=== PATIENT | female | born 1990 | race Caucasian/White ===

== ENCOUNTER 2019-12-30 09:54 | Emergency (ER) | payer OTHER, SELFPAY ==
[2019-12-30 10:00] VITALS: BP 122/60; PULSE 93; RESP 16; TEMP 36.9; O2SAT 100
--- NOTE | 2019-12-30 10:25 | ED.ABDPAIN ---
HPI - Abdominal Pain General Chief Complaint: Nausea/Vomiting/Diarrhea Stated Complaint: vomitting/right side abdominal pain Time Seen by Provider: 12/30/19 10:25 Source: patient and RN notes reviewed Mode of arrival: ambulatory Limitations: no limitations History of Present Illness HPI narrative: 29 year old female who presents to [facility] care with complaints of nausea and vomiting, diarrhea and pain in right lower abdomen since 2o'clock this morning. Patient states that she has some pain in her right side of her abdomen rates her pain as a 3/10at present time but was up to 7/10 last night. Patient has had a tubal ligation in the past, last menses was 10 days ago lasting about 6 dates and was normal for her. Patient does have history of past UTI but has no burning or pain with urination at this time. MD elicited complaint: abdominal pain Pertinent past history: past UTI Onset (ago): hour(s) (12 hours) Pain Consistency: intermittent Location: RLQ Severity: mild Quality: aching Radiation: none Associated symptoms: nausea, vomiting and diarrhea Related Data Home Medications Medication Instructions Recorded Confirmed No Home Medications 12/30/19 12/30/19 Allergies Allergy/AdvReac Type Severity Reaction Status Date / Time No Known Allergies Allergy Verified 12/30/19 10:37 Review of Systems Review of Systems: Narrative: CONSTITUTIONAL: Denies fever, chills, or sweats. EYES: Denies visual changes, redness, or discharge. ENT: Denies rhinorrhea, congestion, sore throat, or otalgia. CARDIOVASCULAR: Denies chest pain, palpitations, or edema. RESPIRATORY: Denies cough or dyspnea. GASTROINTESTINAL: Positive right lower abdominal pain, nausea, vomiting, and diarrhea. GENITOURINARY: Denies dysuria or hematuria. SKIN: Denies rash or itching. MUSCULOSKELETAL: Denies back pain, joint pain, or myalgia. NEUROLOGIC: Denies headache, numbness, or weakness. PSYCHIATRIC: Denies anxiety or depression. All systems reviewed & are unremarkable except as noted in HPI and below PMFSH Past Medical History Medical History (Updated 12/30/19 @ 11:23 by Armida Meyers NP) Anxiety and depression GERD (gastroesophageal reflux disease) Hiatal hernia Loss of teeth due to extraction Surgical History Surgical History H/O tubal ligation Social History Social History (Updated 12/30/19 @ 11:05 by Armida Meyers NP) Years smoked: 10 Smoking status: Former smoker Tobacco type: e-cigarettes/vaping Living arrangements: with family Gender identity (if verbalized by the patient): Female Comments At time of signature, agree with nursing past medical, surgical, social history. There is no relevant family history pertinent to the presenting complaint Exam Narrative: Exam Narrative: GENERAL: Well-appearing, well-nourished, and in no acute distress. HEAD: Normocephalic, atraumatic. EYES: PERRLA and EOMI. ENT: Nares clear, no rhinorrhea or epistaxis. Mucous membranes moist.TM's normal with good light reflex, throat pink with no exudates or lesions, no tonsil enlargement NECK: Supple.no lymphadenopathy CHEST: Clear to auscultation. No respiratory distress. HEART: Regular rate and rhythm. No murmur heard. Normal peripheral pulses. ABDOMEN: Soft,tender right lower abdomen with McBurney point tenderness, nondistended, normal active bowel sounds. EXTREMITIES: Normal range of motion. No edema. SKIN: Warm, dry, no rash. NEURO: No focal deficits. Alert and oriented x3. Course Vital Signs Vital signs: Vital Signs Temperature 36.9 C 12/30/19 10:00 Pulse Rate 93 12/30/19 10:00 Respiratory Rate 16 12/30/19 10:00 Blood Pressure 122/60 12/30/19 10:00 Pulse Oximetry 100 12/30/19 10:00 Temperature 36.9 C 12/30/19 10:00 Pulse Rate 93 12/30/19 10:00 Respiratory Rate 16 12/30/19 10:00 Blood Pressure 122/60 12/30/19 10:00 Pulse Oximetry 100 12/30/19 10:00
== END 2019-12-30 11:00 | disposition short-term general hospital (02) ==
PROVIDERS: Emergency Provider Registered Nurse; PCP Nurse Practitioner Family
DX: R10.31 Right lower quadrant pain (principal); R11.2 Nausea with vomiting, unspecified; R19.7 Diarrhea, unspecified; K21.9 Gastro-esophageal reflux disease without esophagitis
CPT/HCPCS: 81003; 99212; G0463

== ENCOUNTER 2020-04-26 11:39 | Emergency (ER) | payer OTHER, SELFPAY ==
[2020-04-26 11:52] VITALS: BP 106/66; PULSE 94; RESP 18; TEMP 36.6; O2SAT 100
--- NOTE | 2020-04-26 11:59 | ED.URI ---
HPI - URI/Sore Throat General Chief Complaint: Upper Respiratory Infection Stated Complaint: Ear aches Time Seen by Provider: 04/26/20 11:59 Source: patient Mode of arrival: ambulatory Limitations: no limitations History of Present Illness HPI Narrative: Florentin White is a 29 yo female with no PMH who comes to express care for uper respiratory symptoms of sore throat, bilateral ear pain x 7 days. Patient has not taken anything for either the ear pain or the sore throat. States she was exposed by a friend 5 days ago. She will be tested for both Covid and strep Related Data Home Medications Medication Instructions Recorded Confirmed famotidine 20 mg PO DAILY 04/26/20 04/26/20 pantoprazole 40 mg PO DAILY 04/26/20 04/26/20 venlafaxine 75 mg PO DAILY 04/26/20 04/26/20 Allergies Allergy/AdvReac Type Severity Reaction Status Date / Time No Known Allergies Allergy Verified 12/30/19 10:37 Review of Systems Review of Systems: Narrative: CONSTITUTIONAL: Denies fever, chills, sweats. EYES: Denies visual changes, redness, discharge. ENT: Denies rhinorrhea, has congestion, has sore throat, otalgia. CARDIOVASCULAR: Denies chest pain, palpitations, edema. RESPIRATORY: Denies dyspnea, wheezing, cough GASTROINTESTINAL: Denies abdominal pain, nausea, vomiting, diarrhea. GENITOURINARY: Denies dysuria, hematuria, abnormal discharge SKIN: Denies rash or itching. NEUROLOGIC: Denies numbness, or focal weakness. PSYCHIATRIC: Denies anxiety or depression. [facility] Past Medical History Medical History Anxiety and depression GERD (gastroesophageal reflux disease) Hiatal hernia Loss of teeth due to extraction Surgical History Surgical History H/O tubal ligation Social History Social History (Updated 04/26/20 @ 12:10 by Lenore Mendoza CNP) Years smoked: 10 Smoking status: Current every day smoker Tobacco type: e-cigarettes/vaping Gender identity (if verbalized by the patient): Female Comments At time of signature, I agree with nursing past medical, surgical, social and family history. There is no relevant family history pertinent to the presenting complaint. Exam Narrative: Exam Narrative: GENERAL: This is a well-nourished, well-developed patient, in mild distress. HEAD: normocephalic, atraumatic. EYES: Sclera clear/white. Vision is grossly intact. EARS: External ears normal, auditory canals clear, mild erythema on right, and without drainage, TMs normal without perforation. Hearing grossly intact. NOSE: External nose normal without nasal discharge, nares without redness, has rhinorrhea. THROAT: Mucous membranes moist, posterior pharynx erythema with 1+ edema NECK: Neck supple, CARDIOVASCULAR: Regular rate and rhythm without murmurs, gallops, or rubs. RESPIRATORY: Clear to auscultation. Breath sounds equal bilaterally. No wheezes, rales, or rhonchi. GASTROINTESTINAL: Abdomen soft, SKIN: warm, intact with no suspicious lesions or rash, good texture and turgor. NEURO: awake, alert, and oriented to person, place and time. There were no obvious focal neurologic abnormalities. Steady gait EXTREMITIES: Normal range of motion. BACK: Nontender without deformity Course Course Emergency Course: Patient comes to [facility] with complaints of sore throat and ear pain x7 days has not taken any medication Strep test negative Covid test Started on prednisone and Mucinex as well as Akhil Pabon Follow-up with PCP Vital Signs Vital signs: Vital Signs Temperature 97.8 F 04/26/20 11:52 Pulse Rate 94 04/26/20 11:52 Respiratory Rate 18 04/26/20 11:52 Blood Pressure 106/66 04/26/20 11:52 Pulse Oximetry 100 04/26/20 11:52 Temperature 97.8 F 04/26/20 11:52 Pulse Rate 94 04/26/20 11:52 Respiratory Rate 18 04/26/20 11:52 Blood Pressure 106/66 04/26/20 11:52 Pulse Oximetry 10
== END 2020-04-26 12:30 | disposition home or self-care (01) ==
PROVIDERS: Emergency Provider Nurse Practitioner; PCP Nurse Practitioner Family
DX: H92.03 Otalgia, bilateral (principal); J02.9 Acute pharyngitis, unspecified; Z20.822 Contact with and (suspected) exposure to COVID-19; K21.9 Gastro-esophageal reflux disease without esophagitis; F41.9 Anxiety disorder, unspecified; F32.9 Major depressive disorder, single episode, unspecified
CPT/HCPCS: 87081; 87426; 87880; 99213; C9803; G0463

== ENCOUNTER 2020-07-11 16:26 | Emergency (ER) | payer OTHER, SELFPAY ==
[2020-07-11 16:32] VITALS: BP 123/74; PULSE 86; RESP 16; TEMP 36.4; O2SAT 100
--- NOTE | 2020-07-11 16:39 | ED.GENADULT ---
HPI - General Adult General Chief complaint: Ear Stated complaint: ear pressure Time Seen by Provider: 07/11/20 16:39 Source: patient and RN notes reviewed Mode of arrival: ambulatory Limitations: no limitations History of Present Illness HPI narrative: 29-year-old female complains of bilateral ear pressure, rhinorrhea, congestion, nausea, and intermittent headache (not the worst of her like) for 1 day. Florentin reports increasing symptoms throughout the day. Tylenol 500mg today at 11:00 without relief. Denies itching or drainage. Recently URI symptoms. No facial swelling. Nausea without vomiting and abdominal pain. Tolerating liquids well. No high fevers, sore throat, drooling, neck or throat swelling. No cough or chest congestion. No chest pain or shortness of breath. LMP 3 weeks ago. Remains active. The patient reports she have not been diagnosed with COVID-19. The patient reports she is not waiting for the results of a COVID-19 lab test. The patient reports she do not have chills, weakness, or fatigue. The patient reports she do not have any loss of taste or smell and diarrhea. Denies recent traveling. Denies concerns for COVID-19 or exposures been home with limited outdoor exposure except for essential household needs, work, and return home. At this time, patient is not suspected of having COVID-19. Some parts of this dictation were generated by voice recognition software and may contain typographical and/or grammatical inaccuracies. Related Data Allergies Allergy/AdvReac Type Severity Reaction Status Date / Time No Known Allergies Allergy Verified 07/11/20 16:39 Review of Systems Review of Systems: Narrative: CONSTITUTIONAL: Denies fever, chills, sweats. EYES: Denies visual changes, redness, discharge. ENT: Complains of rhinorrhea, congestion, bilateral ear pressure. Denies tinnitus, decrease hearing, clogged, sore throat, otalgia. CARDIOVASCULAR: Denies chest pain, palpitations, edema. RESPIRATORY: Denies dyspnea, wheezing, cough. GASTROINTESTINAL: Denies abdominal pain, vomiting, diarrhea. Complains of nausea. GENITOURINARY: Denies dysuria, hematuria, abnormal discharge. SKIN: Denies rash or itching. MUSCULOSKELETAL: Denies acute back pain, joint pain, or myalgia. NEUROLOGIC: Denies numbness or focal weakness. Complains of intermittent RICHARDS. PSYCHIATRIC: Denies anxiety or depression. All systems reviewed & are unremarkable except as noted in HPI and below. [facility] Past Medical History Medical History (Updated 07/12/20 @ 00:01 by Hannah Villanueva) Anxiety and depression GERD (gastroesophageal reflux disease) Hiatal hernia Loss of teeth due to extraction Vaginal delivery 2 males Surgical History Surgical History H/O tubal ligation Family History Family History (Updated 07/11/20 @ 17:01 by FROYLAN Lopez) Father Acute myocardial infarction Mother Asthma Grandparent Acute myocardial infarction Social History Social History (Updated 07/11/20 @ 17:02 by FROYLAN Lopez) Smoking packs per day: 1.5 Smoking cigarettes per day: 30.0 Years smoked: 12 Smoking pack-years: 18.00 Smoking status: Current every day smoker Tobacco type: cigarettes and e-cigarettes/vaping Second hand tobacco smoke exposure: Yes Additional smoking assessment comments: Stop smoking cigarettes 2 years ago and now vaping Alcohol intake: former Substance use: current Substance use type: marijuana Living arrangements: with family Occupation/Education: occupation Gender identity (if verbalized by the patient): Female Sexual Orientation (if Verbalized by the Patient): Straight or Heterosexual Comments At time of signature, agree with nurse past medical, surgical, social, and family history. There is no relevant family history pertinent to the presenting complaint. Exam Narrative: Exam Narrative:
[2020-07-11 16:42] VITALS: BP 123/74; PULSE 86; RESP 16; TEMP 36.4; O2SAT 100
[2020-07-13 19:04] LABS: SARS-CoV-2 RNA PCR Negative
== END 2020-07-11 17:12 | disposition home or self-care (01) ==
PROVIDERS: Emergency Provider Nurse Practitioner Family; PCP Nurse Practitioner Family
DX: H65.192 Other acute nonsuppurative otitis media, left ear (principal); J00 Acute nasopharyngitis [common cold]; J01.90 Acute sinusitis, unspecified; R51.9 Headache, unspecified; Z20.822 Contact with and (suspected) exposure to COVID-19; F17.200 Nicotine dependence, unspecified, uncomplicated; K21.9 Gastro-esophageal reflux disease without esophagitis
CPT/HCPCS: 99213; C9803; G0463; U0003; U0005

== ENCOUNTER 2021-02-07 17:01 | Emergency (ER) | payer OTHER, SELFPAY ==
[2021-02-07 17:11] VITALS: BP 125/61; PULSE 98; RESP 16; TEMP 37.2; O2SAT 100
--- NOTE | 2021-02-07 17:21 | ED.GENADULT ---
HPI - General Adult General Chief complaint: Abdominal Pain Stated complaint: Low Back Pain/ Right Side Pain Time Seen by Provider: 02/07/21 17:23 Source: patient and RN notes reviewed Mode of arrival: ambulatory Limitations: no limitations History of Present Illness HPI narrative: 30-year-old female presents with concern for right upper quadrant abdominal pain, left low back pain. Patient reports an 8-year history of bulimia her last purging episode was this morning. She denies fever, bodies, chills, sweats, involuntary vomiting, diarrhea. Denies any relieving or exacerbating factors to the pain. MD complaint: Back pain Related Data Home Medications Medication Instructions Recorded Confirmed No Home Medications 02/07/21 02/07/21 Allergies Allergy/AdvReac Type Severity Reaction Status Date / Time No Known Allergies Allergy Verified 02/07/21 17:26 Review of Systems Review of Systems: CONSTITUTIONAL: Denies malaise, chills, sweats, or fever. ENT: Denies rhinorrhea, congestion, sinus pain, otalgia or sore throat. CARDIOVASCULAR: Denies chest pain, palpitations, or edema. RESPIRATORY: Denies cough or dyspnea. GASTROINTESTINAL: Reports right upper quadrant abdominal pain. Denies nausea, vomiting, diarrhea, bloody, or mucous stools. GENITOURINARY: Denies dysuria or hematuria. SKIN: Denies rash or itching. MUSCULOSKELETAL: Reports left back pain. Denies myalgia. NEUROLOGIC: Denies numbness, weakness, or headache. All systems reviewed & are unremarkable except as noted in HPI and below PMFSH Past Medical History Medical History (Updated 02/07/21 @ 17:40 by Peyton Willoughby NP) Anxiety and depression GERD (gastroesophageal reflux disease) Hiatal hernia Loss of teeth due to extraction Vaginal delivery 2 males Surgical History Surgical History H/O tubal ligation Family History Family History (Updated 07/11/20 @ 17:01 by FROYLAN Lopez) Father Acute myocardial infarction Mother Asthma Grandparent Acute myocardial infarction Social History Social History (Updated 07/11/20 @ 17:02 by FROYLAN Lopez) Smoking packs per day: 1.5 Smoking cigarettes per day: 30.0 Years smoked: 12 Smoking pack-years: 18.00 Smoking status: Current every day smoker Tobacco type: cigarettes and e-cigarettes/vaping Second hand tobacco smoke exposure: Yes Additional smoking assessment comments: Stop smoking cigarettes 2 years ago and now vaping Alcohol intake: former Substance use: current Substance use type: marijuana Gender identity (if verbalized by the patient): Female Sexual Orientation (if Verbalized by the Patient): Straight or Heterosexual Comments At time of signature, agree with nursing past medical, surgical, social and family history. There is no relevant family history pertinent to the presenting complaint Exam Narrative: GENERAL: Well-appearing, well-nourished, and in no acute distress. HEAD: Normocephalic EYES: PERRLA, conjunctivae clear, and EOMI. NECK: Supple. No lymphadenopathy CHEST: Speaks in full sentences. Clear to auscultation, breath sounds equal. No respiratory distress. HEART: Regular rate and rhythm. ABDOMEN: Soft, flat, nondistended. Right upper quadrant tenderness. No guarding, rebound tenderness, or rigid. No pulsatilla masses. Bowel sounds present in all four quadrants. No organomegaly. Negative Mckenna?s sign. No periumbilical tenderness. No Supra public tenderness or distension. SKIN: Warm, dry, no rash. NEURO: Alert and oriented x3. PSYCH: Normal mood and affect Course Course Emergency Course: Patient is aware of, understands and agrees to be seen in the emergency department. Patient agrees to proceed directly to I will be here the emergency department. Portions of this record may have been created with voice recognition software Vital Signs Vital signs: Vital Signs
== END 2021-02-07 17:35 | disposition short-term general hospital (02) ==
PROVIDERS: Emergency Provider Nurse Practitioner; PCP Nurse Practitioner Family
DX: R10.11 Right upper quadrant pain (principal); M54.50 Low back pain, unspecified; F17.210 Nicotine dependence, cigarettes, uncomplicated; K21.9 Gastro-esophageal reflux disease without esophagitis
CPT/HCPCS: 81003; 99212; G0463

== ENCOUNTER 2021-02-24 11:44 | Emergency (ER) | payer OTHER, SELFPAY ==
[2021-02-24 11:54] VITALS: BP 111/63; PULSE 84; RESP 16; TEMP 37.5; O2SAT 99
--- NOTE | 2021-02-24 12:24 | ED.FEMALEGU ---
HPI - Female Genitourinary General Chief complaint: Urogenital-Female Stated complaint: Vaginal Issue Time Seen by Provider: 02/24/21 12:25 Source: patient, RN notes reviewed and old records reviewed Mode of arrival: ambulatory Limitations: no limitations History of Present Illness HPI Narrative: 30-year-old female who presents to express care with complaints of burning with urination. Patient denies any odors, urgency or frequency of urination or any flank pain, vaginal discharge or suprapubic discomfort. Patient states she feels that she possibly could have been exposed to STD, thinks her significant other has been unfaithful. Patient denies any fever chills or sweats Related Data Allergies Allergy/AdvReac Type Severity Reaction Status Date / Time No Known Allergies Allergy Verified 02/24/21 11:56 Review of Systems Review of Systems: CONSTITUTIONAL: Denies fever, chills, or sweats. EYES: Denies visual changes, redness, or discharge. ENT: Denies rhinorrhea, congestion, sore throat, or otalgia. CARDIOVASCULAR: Denies chest pain, palpitations, or edema. RESPIRATORY: Denies cough or dyspnea. GASTROINTESTINAL: Denies abdominal pain, nausea, vomiting, or diarrhea. GENITOURINARY:Positive dysuria no hematuria. SKIN: Denies rash or itching. MUSCULOSKELETAL: Denies back pain, joint pain, or myalgia. NEUROLOGIC: Denies headache, numbness, or weakness. PSYCHIATRIC: Positive history of anxiety or depression. All systems reviewed & are unremarkable except as noted in HPI and below PMFSH Past Medical History Medical History Anxiety and depression GERD (gastroesophageal reflux disease) Hiatal hernia Loss of teeth due to extraction Vaginal delivery 2 males Surgical History Surgical History H/O tubal ligation Family History Family History Father Acute myocardial infarction Mother Asthma Grandparent Acute myocardial infarction Social History Social History Smoking packs per day: 1.5 Smoking cigarettes per day: 30.0 Years smoked: 12 Smoking pack-years: 18.00 Smoking status: Current every day smoker Tobacco type: cigarettes and e-cigarettes/vaping Second hand tobacco smoke exposure: Yes Additional smoking assessment comments: Stop smoking cigarettes 2 years ago and now vaping Alcohol intake: former Substance use: current Substance use type: marijuana Gender identity (if verbalized by the patient): Female Sexual Orientation (if Verbalized by the Patient): Straight or Heterosexual Comments At time of signature, agree with nursing past medical, surgical, social and family history. There is no relevant family history pertinent to the presenting complaint Exam Narrative: GENERAL: Well-appearing, well-nourished, and in no acute distress. HEAD: Normocephalic, atraumatic. EYES: PERRLA and EOMI. ENT: Nares clear, no rhinorrhea or epistaxis. Mucous membranes moist. NECK: Supple.no lymphadenopathy CHEST: Clear to auscultation. No respiratory distress.SAO2 99% on room air HEART: Regular rate and rhythm. No murmur heard. Normal peripheral pulses. ABDOMEN: Soft, nontender, nondistended, normal active bowel sounds.no supra pubic tenderness or any Flank pain on examination. EXTREMITIES: Normal range of motion. No edema. SKIN: Warm, dry, no rash. NEURO: No focal deficits. Alert and oriented x3. Course Vital Signs Vital signs: Vital Signs Temperature 37.5 C 02/24/21 11:54 Pulse Rate 84 02/24/21 11:54 Respiratory Rate 16 02/24/21 11:54 Blood Pressure 111/63 02/24/21 11:54 Pulse Oximetry 99 02/24/21 11:54 Temperature 37.5 C 02/24/21 11:54 Pulse Rate 84 02/24/21 11:54 Respiratory Rate 16 02/24/21 11:54 Blood Pressure 111/63 02/24/21 11:54 Pulse O
[2021-02-24] MEDS: cefTRIAXone 500 MG, LIDOCAINE HCL 1% LOCAL INJ 1 ML IM (12:45)
== END 2021-02-24 13:12 | disposition home or self-care (01) ==
PROVIDERS: Emergency Provider Registered Nurse
DX: R30.0 Dysuria (principal); F17.210 Nicotine dependence, cigarettes, uncomplicated
CPT/HCPCS: 81003; 87491; 87591; 87661; 96372; 99214; G0463; J0696

== ENCOUNTER 2021-05-08 19:12 | Emergency (ER) | payer OTHER, SELFPAY ==
[2021-05-08 19:18] VITALS: BP 125/78; PULSE 69; RESP 14; TEMP 36.4; O2SAT 100
--- NOTE | 2021-05-08 19:26 | ED.URI ---
HPI - URI/Sore Throat General Chief Complaint: Upper Respiratory Infection Stated Complaint: Dizziness/Cough Time Seen by Provider: 05/08/21 19:26 History of Present Illness HPI Narrative: Patient presents with bilateral pain and pressure and dizzy certain times. Patient denies any nausea no vomiting no drainage from her ear no loss of hearing. Patient is not taking thing [id number] for her symptoms. Related Data Allergies Allergy/AdvReac Type Severity Reaction Status Date / Time No Known Allergies Allergy Verified 05/08/21 19:22 Review of Systems Review of Systems: CONSTITUTIONAL: Denies fever, chills, or sweats. EYES: Denies visual changes, redness, or discharge. ENT: Denies rhinorrhea, congestion, sore throat, or otalgia. CARDIOVASCULAR: Denies chest pain, palpitations, or edema. RESPIRATORY: Denies cough or dyspnea. GASTROINTESTINAL: Denies abdominal pain, nausea, vomiting, or diarrhea. GENITOURINARY: Denies dysuria or hematuria. SKIN: Denies rash or itching. MUSCULOSKELETAL: Denies back pain, joint pain, or myalgia. NEUROLOGIC: Denies headache, numbness, or weakness. PSYCHIATRIC: Denies anxiety or depression. [facility] Past Medical History Medical History Anxiety and depression GERD (gastroesophageal reflux disease) Hiatal hernia Loss of teeth due to extraction Vaginal delivery 2 males Surgical History Surgical History H/O tubal ligation Family History Family History Father Acute myocardial infarction Mother Asthma Grandparent Acute myocardial infarction Social History Social History Smoking packs per day: 1.5 Smoking cigarettes per day: 30.0 Years smoked: 12 Smoking pack-years: 18.00 Smoking status: Current every day smoker Tobacco type: cigarettes and e-cigarettes/vaping Second hand tobacco smoke exposure: Yes Additional smoking assessment comments: Stop smoking cigarettes 2 years ago and now vaping Alcohol intake: former Substance use: current Substance use type: marijuana Gender identity (if verbalized by the patient): Female Sexual Orientation (if Verbalized by the Patient): Straight or Heterosexual Comments At time of signature, agree with nursing past medical, surgical, social and family history. There is no relevant family history pertinent to the presenting complaint Exam Narrative: GENERAL: Well-appearing, well-nourished, and in no acute distress. HEAD: Normocephalic, atraumatic. EYES: PERRLA and EOMI. ENT: Nares clear, no rhinorrhea or epistaxis. Mucous membranes moist. Right TM bulging with moderate erythremia to canal. Left TM intact with good light reflex. NECK: Supple. CHEST: Clear to auscultation. No respiratory distress. HEART: Regular rate and rhythm. No murmur heard. Normal peripheral pulses. ABDOMEN: Soft, nontender, nondistended, normal active bowel sounds. EXTREMITIES: Normal range of motion. No edema. SKIN: Warm, dry, no rash. NEURO: No focal deficits. Alert and oriented x3. Raghav Coma Scale Eye Opening: Spontaneous 4 [place] Coma Scale Motor: Obeys Commands 6 Raghav Coma Scale Verbal: Oriented 5 [place] Coma Scale Total 15 Course Course Level of Care: Express Care Visit Vital Signs Vital signs: Vital Signs Temperature 36.4 C 05/08/21 19:18 Pulse Rate 69 05/08/21 19:18 Respiratory Rate 14 05/08/21 19:18 Blood Pressure 125/78 05/08/21 19:18 Pulse Oximetry 100 05/08/21 19:18 Temperature 36.4 C 05/08/21 19:18 Pulse Rate 69 05/08/21 19:18 Respiratory Rate 14 05/08/21 19:18 Blood Pressure 125/78 05/08/21 19:18 Pulse Oximetry 100 05/08/21 19:18 Critical dx considered and discussed with pt. Educated patient on red flag s/s and to go to ED if s/s occur. Discussed with p
[2021-05-08 19:28] VITALS: BP 125/78; PULSE 69; RESP 14; TEMP 36.4; O2SAT 100
== END 2021-05-08 19:38 | disposition home or self-care (01) ==
PROVIDERS: Emergency Provider Nurse Practitioner Family; PCP Nurse Practitioner Family
DX: H66.91 Otitis media, unspecified, right ear (principal); F17.290 Nicotine dependence, other tobacco product, uncomplicated; K21.9 Gastro-esophageal reflux disease without esophagitis
CPT/HCPCS: 99213; G0463

== ENCOUNTER 2021-06-22 13:26 | Emergency (ER) | payer OTHER, SELFPAY ==
[2021-06-22 13:42] VITALS: BP 112/62; PULSE 79; RESP 18; TEMP 37.2; O2SAT 99
--- NOTE | 2021-06-22 14:19 | ED.URI ---
HPI - URI/Sore Throat General Chief Complaint: Upper Respiratory Infection Stated Complaint: sore throat Time Seen by Provider: 06/22/21 14:20 Source: patient and RN notes reviewed Mode of arrival: ambulatory Limitations: no limitations History of Present Illness HPI Narrative: 30-year-old female presents with concern for sore throat. Reports 1 month history of feeling ill with nasal congestion and cough, has been treated for double ear infections beginning a month but lost her antibiotics. Reports she was then treated for a kidney infection for which she took all those antibiotics and some of her symptoms improved. She reports her son was diagnosed with strep throat and she began having a sore throat yesterday. She reports she has been taking Tylenol. MD elicited complaint: sore throat Related Data Home Medications Medication Instructions Recorded Confirmed No Home Medications 06/22/21 06/22/21 Allergies Allergy/AdvReac Type Severity Reaction Status Date / Time No Known Allergies Allergy Verified 06/22/21 13:51 Review of Systems Review of Systems: CONSTITUTIONAL: Denies malaise, chills, sweats, or fever. EYES: Denies visual changes, redness, or discharge. ENT: Denies rhinorrhea, congestion, sinus pain, otalgia. Report sore throat. CARDIOVASCULAR: Denies chest pain, palpitations, or edema. RESPIRATORY: Reports cough. Denies dyspnea. GASTROINTESTINAL: Denies abdominal pain, nausea, vomiting, diarrhea SKIN: Denies rash or itching. MUSCULOSKELETAL: Denies myalgia. NEUROLOGIC: Denies headache. All systems reviewed & are unremarkable except as noted in HPI and below PMFSH Past Medical History Medical History Anxiety and depression GERD (gastroesophageal reflux disease) Hiatal hernia Loss of teeth due to extraction Vaginal delivery 2 males Surgical History Surgical History H/O tubal ligation Family History Family History Father Acute myocardial infarction Mother Asthma Grandparent Acute myocardial infarction Social History Social History Smoking packs per day: 1.5 Smoking cigarettes per day: 30.0 Years smoked: 12 Smoking pack-years: 18.00 Smoking status: Current every day smoker Tobacco type: cigarettes and e-cigarettes/vaping Second hand tobacco smoke exposure: Yes Additional smoking assessment comments: Stop smoking cigarettes 2 years ago and now vaping Alcohol intake: former Substance use: current Substance use type: marijuana Gender identity (if verbalized by the patient): Female Sexual Orientation (if Verbalized by the Patient): Straight or Heterosexual Comments At time of signature, agree with nursing past medical, surgical, social and family history. There is no relevant family history pertinent to the presenting complaint Exam Narrative: GENERAL: Well-appearing, well-nourished, and in no acute distress. HEAD: Normocephalic EYES: PERRLA, conjunctivae clear ENT: Nares clear, clear discharge. Mucous membranes moist. TM pearly hamilton with sharp light reflex bilaterally; no tragal tenderness. Oropharynx not erythematous without lesions. Tonsils not enlarged and without exudate, no drooling, no hoarseness, no trismus, uvula midline. NECK: Supple. No lymphadenopathy CHEST: Clear to auscultation, breath sounds equal. No wheezing, rhonchi, rales, or stridor. No respiratory distress, speaks in full sentences. HEART: Regular rate and rhythm. No murmur heard. SKIN: Warm, dry, no rash. NEURO: Alert and oriented x3. PSYCH: Normal mood and affect Course Course Emergency Course: Patient is aware of diagnosis, understands and agrees to treatment plan. Anticipatory guidance given. Patient agrees to follow-up as directed and is aware of reasons to see
== END 2021-06-22 14:31 | disposition home or self-care (01) ==
PROVIDERS: Emergency Provider Nurse Practitioner; PCP Nurse Practitioner Family
DX: J02.9 Acute pharyngitis, unspecified (principal); F17.290 Nicotine dependence, other tobacco product, uncomplicated; K21.9 Gastro-esophageal reflux disease without esophagitis
CPT/HCPCS: 87081; 87880; 99213; G0463

== ENCOUNTER 2021-07-19 12:25 | Emergency (ER) | payer OTHER, SELFPAY ==
--- NOTE | 2021-07-19 12:27 | ED.URI ---
HPI - URI/Sore Throat General Chief Complaint: Upper Respiratory Infection Stated Complaint: sore throat Time Seen by Provider: 07/19/21 12:27 Source: patient and RN notes reviewed History of Present Illness HPI Narrative: Patient is a 30-year-old female who presents the urgent care with complaints of a sore throat for the last 3 days. Patient has not taken anything [id number] and denies any fever, chills, nausea, vomiting, headache or other upper respiratory complaints. Patient states that her boyfriend is positive for strep. No other acute complaints. No acute distress noted. Patient aware of the plan of care. Some parts of this dictation were generated by voice recognition software and may contain typographical and/or grammatical inaccuracies. Related Data Home Medications Medication Instructions Recorded Confirmed No Home Medications 06/22/21 06/22/21 Allergies Allergy/AdvReac Type Severity Reaction Status Date / Time No Known Allergies Allergy Verified 07/19/21 12:38 Review of Systems Review of Systems: CONSTITUTIONAL: Denies fever, chills, or sweats. EYES: Denies visual changes, redness, or discharge. ENT: Denies rhinorrhea, congestion, or otalgia. Reports of sore throat CARDIOVASCULAR: Denies chest pain, palpitations, or edema. RESPIRATORY: Denies cough or dyspnea. GASTROINTESTINAL: Denies abdominal pain, nausea, vomiting, or diarrhea. GENITOURINARY: Denies dysuria or hematuria. SKIN: Denies rash or itching. MUSCULOSKELETAL: Denies back pain, joint pain, or myalgia. NEUROLOGIC: Denies headache, numbness, or weakness. All other systems reviewed are negative, except as documented in HPI. [facility] Past Medical History Medical History Anxiety and depression GERD (gastroesophageal reflux disease) Hiatal hernia Loss of teeth due to extraction Vaginal delivery 2 males Surgical History Surgical History H/O tubal ligation Family History Family History Father Acute myocardial infarction Mother Asthma Grandparent Acute myocardial infarction Social History Social History Smoking packs per day: 1.5 Smoking cigarettes per day: 30.0 Years smoked: 12 Smoking pack-years: 18.00 Smoking status: Current every day smoker Tobacco type: cigarettes and e-cigarettes/vaping Second hand tobacco smoke exposure: Yes Additional smoking assessment comments: Stop smoking cigarettes 2 years ago and now vaping Alcohol intake: former Substance use: current Substance use type: marijuana Gender identity (if verbalized by the patient): Female Sexual Orientation (if Verbalized by the Patient): Straight or Heterosexual Comments At the time of my signature, I reviewed and agree with the nursing past medical, surgical, social, and family history. There is no relevant family history pertinent to the patient complaint. Exam Narrative: GENERAL: This is a well-nourished, well-developed patient, in no apparent distress. HEAD: normocephalic, atraumatic. EYES: PERRL. Sclera clear/white. Vision is grossly intact. EARS: External ears normal, auditory canals clear and without drainage, TMs normal without perforation. Hearing grossly intact. NOSE: External nose normal with no obvious nasal discharge, nares without redness, no rhinorrhea. THROAT: Mucous membranes moist, posterior pharynx clear. Notable scarring and healed ulcerations to the posterior oropharynx with mild postnasal drainage NECK: Neck supple, mild tender left submandibular lymphadenopathy CARDIOVASCULAR: Regular rate and rhythm without murmurs, gallops, or rubs. RESPIRATORY: Clear to auscultation. Breath sounds equal bilaterally. No wheezes, rales, or rhonchi. SKIN: warm, intact with no suspicious lesions or rash
[2021-07-19 12:30] VITALS: BP 105/60; PULSE 81; RESP 14; TEMP 36.8; O2SAT 100
== END 2021-07-19 13:04 | disposition home or self-care (01) ==
PROVIDERS: Emergency Provider Nurse Practitioner Family
DX: J02.9 Acute pharyngitis, unspecified (principal); F17.290 Nicotine dependence, other tobacco product, uncomplicated; K21.9 Gastro-esophageal reflux disease without esophagitis
CPT/HCPCS: 87081; 87880; 99213; G0463

== ENCOUNTER 2021-07-31 08:01 | Emergency (ER) | payer OTHER, SELFPAY ==
[2021-07-31 08:08] VITALS: BP 114/74; PULSE 78; RESP 18; TEMP 37; O2SAT 100
--- NOTE | 2021-07-31 08:34 | ED.GENADULT ---
HPI - General Adult General Chief complaint: Upper Respiratory Infection Stated complaint: sore throat congestion nausea ear pain Source: patient Mode of arrival: ambulatory Limitations: no limitations History of Present Illness HPI narrative: Patient presents for evaluation of sick symptoms. She states 6 days ago she developed body aches. She took a home COVID test which was positive. She went to [facility] emergency department for confirmation testing, which was also positive. She reports continued generalized body aches, nausea, vomiting, diarrhea, sore throat, chills, and cough.. She denies fever, chest pain, shortness of breath. The note she received from the ER provider excused her from work through of this week. She missed work yesterday as she was not feeling better. She did not receive COVID vaccination. She does use e-cigarettes and also uses marijuana. No additional complaints or concerns. Related Data Allergies Allergy/AdvReac Type Severity Reaction Status Date / Time No Known Allergies Allergy Verified 07/31/21 08:15 Review of Systems Review of Systems: CONSTITUTIONAL: Reports chills. Denies fever or sweats. EYES: Denies visual changes, redness, or discharge. ENT: Reports sore throat. Denies rhinorrhea, congestion, or otalgia. CARDIOVASCULAR: Denies chest pain, palpitations, or edema. RESPIRATORY: Reports cough. Denies dyspnea. GASTROINTESTINAL: Reports nausea, vomiting and diarrhea. Denies abdominal pain GENITOURINARY: Denies dysuria or hematuria. SKIN: Denies rash or itching. MUSCULOSKELETAL: Denies back pain, joint pain, or myalgia. NEUROLOGIC: Denies headache, numbness, dizziness, or weakness. PSYCHIATRIC: Denies anxiety or depression. [facility] Past Medical History Medical History Anxiety and depression GERD (gastroesophageal reflux disease) Hiatal hernia Loss of teeth due to extraction Vaginal delivery 2 males Surgical History Surgical History H/O tubal ligation Family History Family History Father Acute myocardial infarction Mother Asthma Grandparent Acute myocardial infarction Social History Social History Smoking packs per day: 1.5 Smoking cigarettes per day: 30.0 Years smoked: 12 Smoking pack-years: 18.00 Smoking status: Current every day smoker Tobacco type: cigarettes and e-cigarettes/vaping Second hand tobacco smoke exposure: Yes Additional smoking assessment comments: Stop smoking cigarettes 2 years ago and now vaping Alcohol intake: former Substance use: current Substance use type: marijuana Gender identity (if verbalized by the patient): Female Sexual Orientation (if Verbalized by the Patient): Straight or Heterosexual Exam Narrative: GENERAL: Well-appearing, well-nourished, and in no acute distress. HEAD: Normocephalic, atraumatic. EYES: PERRLA and EOMI. ENT: Nares clear, no rhinorrhea or epistaxis. Mucous membranes moist. Oropharynx without tonsillar hypertrophy exudate or other lesions. Bilateral TMs pearly hamilton nonbulging NECK: Supple. No adenopathy or masses. No carotid bruits or JVD CHEST: Clear to auscultation. No respiratory distress. No wheezes rales or rhonchi HEART: Regular rate and rhythm. No murmur heard. Normal peripheral pulses. ABDOMEN: Soft, nontender, nondistended, normal active bowel sounds. EXTREMITIES: Normal range of motion. No edema. SKIN: Warm, dry, no rash. NEURO: No focal deficits. Alert and oriented x3. PSYCH: Normal mood and affect. Course Course Emergency Course: This is a 30-year-old female that presented for evaluation after recent positive COVID test. She is nontoxic-appearing. We will add Zofran that she can take at home. Note provided to ok
== END 2021-07-31 08:22 | disposition home or self-care (01) ==
PROVIDERS: Emergency Provider Nurse Practitioner
DX: U07.1 COVID-19 (principal); F17.210 Nicotine dependence, cigarettes, uncomplicated
CPT/HCPCS: 99213; G0463

== ENCOUNTER 2021-11-01 13:04 | Emergency (ER) | payer OTHER, SELFPAY ==
[2021-11-01 13:06] VITALS: BP 128/69; PULSE 84; RESP 14; TEMP 36.6; O2SAT 100
--- NOTE | 2021-11-01 13:12 | ED.NAVMDI ---
HPI - Nausea/Vomiting/Diarrhea General Chief complaint: Nausea/Vomiting/Diarrhea Stated complaint: nausea diarhhrea Time Seen by Provider: 11/01/21 13:12 Source: patient, RN notes reviewed and old records reviewed Mode of arrival: ambulatory Limitations: no limitations History of Present Illness HPI Narrative: 31-year-old female who presents to [facility] care with complaints of nausea vomiting and diarrhea which started last p.m. after eating meat lovers pizza at area establishment.Patient report that she and 2 other who ate the pizza are sick with same symptoms, her children had cheese pizza and are not ill. Patient reports that she has had nausea and vomiting and diarrhea which started last night within a hour of eating. She states that she has had vomiting X2 and has had diarrhea X6 with abdominal cramping. Patient reports that she has had a few sips of water this morning. MD elicited complaint: nausea, vomiting, diarrhea and other (Abdominal cramping) Onset (ago): day(s) (approximately 7 pm yesterday) Description of diarrhea: watery Associated nausea: Yes Related Data Home Medications Medication Instructions Recorded Confirmed venlafaxine 75 mg capsule,extended 75 mg PO DAILY 11/01/21 11/01/21 release 24 hr Allergies Allergy/AdvReac Type Severity Reaction Status Date / Time No Known Allergies Allergy Verified 11/01/21 13:16 Review of Systems Review of Systems: CONSTITUTIONAL: Denies fever, chills, or sweats. EYES: Denies visual changes, redness, or discharge. ENT: Denies rhinorrhea, congestion, sore throat, or otalgia. CARDIOVASCULAR: Denies chest pain, palpitations, or edema. RESPIRATORY: Denies cough or dyspnea. GASTROINTESTINAL: Denies abdominal pain, positive for abdominal cramping,positive nausea, vomiting, and diarrhea. GENITOURINARY: Denies dysuria or hematuria. SKIN: Denies rash or itching. MUSCULOSKELETAL: Denies back pain, joint pain, or myalgia. NEUROLOGIC: Denies headache, numbness, or weakness. PSYCHIATRIC: Positive for history of anxiety or depression. All systems reviewed & are unremarkable except as noted in HPI and below PMFSH Past Medical History Medical History Anxiety and depression GERD (gastroesophageal reflux disease) Hiatal hernia Loss of teeth due to extraction Vaginal delivery 2 males Surgical History Surgical History H/O tubal ligation Family History Family History Father Acute myocardial infarction Mother Asthma Grandparent Acute myocardial infarction Social History Social History Smoking packs per day: 1.5 Smoking cigarettes per day: 30.0 Years smoked: 12 Smoking pack-years: 18.00 Smoking status: Current every day smoker Tobacco type: cigarettes and e-cigarettes/vaping Second hand tobacco smoke exposure: Yes Additional smoking assessment comments: Stop smoking cigarettes 2 years ago and now vaping Alcohol intake: former Substance use: current Substance use type: marijuana Gender identity (if verbalized by the patient): Female Sexual Orientation (if Verbalized by the Patient): Straight or Heterosexual Comments .At time of signature agree with nursing documentation of past medical, surgical, social, and family history. There is no relevant family history pertinent to presenting complaint. Exam Narrative: GENERAL: Well-appearing, well-nourished, and in no acute distress. HEAD: Normocephalic, atraumatic. EYES: PERRLA and EOMI. ENT: Nares clear, no rhinorrhea or epistaxis. Mucous membranes moist.TM's normal with good light reflex, throat pink with no lesions or exudates or tonsil swelling NECK: Supple. no lymphadenopathy CHEST: Clear to auscultation. No respiratory distress. SAO2 100% on room air HEART: Regular rate
== END 2021-11-01 13:32 | disposition home or self-care (01) ==
PROVIDERS: Emergency Provider Registered Nurse
DX: K52.9 Noninfective gastroenteritis and colitis, unspecified (principal); F17.290 Nicotine dependence, other tobacco product, uncomplicated; K21.9 Gastro-esophageal reflux disease without esophagitis; F41.9 Anxiety disorder, unspecified; F32.A Depression, unspecified
CPT/HCPCS: 99213; G0463

== ENCOUNTER 2022-03-03 08:29 | Emergency (ER) | payer OTHER, SELFPAY ==
--- NOTE | 2022-03-03 08:42 | ED.FEMALEGU ---
HPI - Female Genitourinary General Chief complaint: Urogenital-Female Stated complaint: Urinary Problem Time Seen by Provider: 03/03/22 08:42 Source: patient and RN notes reviewed History of Present Illness HPI Narrative: patient is a 31-year-old female who presents to the Urgent Care with complaints of mid to left low back that started this morning at 6:00 a.m.. Patient does have a history of kidney stones but states she does have a history of UTIs and shrinking kidneys . Patient denies any dysuria. States that she has had decreased urinary output. Also reports of nausea. No other acute complaints. No acute distress noted. Patient aware of plan of care. Some parts of this dictation were generated by voice recognition software and may contain typographical and/or grammatical inaccuracies. Related Data Home Medications Medication Instructions Recorded Confirmed venlafaxine 75 mg capsule,extended 75 mg PO DAILY 11/01/21 03/03/22 release 24 hr Allergies Allergy/AdvReac Type Severity Reaction Status Date / Time No Known Allergies Allergy Verified 03/03/22 08:47 Review of Systems Review of Systems: CONSTITUTIONAL: Denies fever, chills, or sweats. EYES: Denies visual changes, redness, or discharge. ENT: Denies rhinorrhea, congestion, sore throat, or otalgia. CARDIOVASCULAR: Denies chest pain, palpitations, or edema. RESPIRATORY: Denies cough or dyspnea. GASTROINTESTINAL: reports of nausea without vomiting or diarrhea GENITOURINARY: Denies dysuria or hematuria. Reports of decreased urinary output and left flank pain SKIN: Denies rash or itching. MUSCULOSKELETAL: reports a mid to left back pains NEUROLOGIC: Denies headache, numbness, or weakness. All other systems reviewed are negative, except as documented in HPI. [facility] Past Medical History Medical History Anxiety and depression GERD (gastroesophageal reflux disease) Hiatal hernia Loss of teeth due to extraction Vaginal delivery 2 males Surgical History Surgical History H/O tubal ligation Family History Family History Father Acute myocardial infarction Mother Asthma Grandparent Acute myocardial infarction Social History Social History Smoking packs per day: 1.5 Smoking cigarettes per day: 30.0 Years smoked: 12 Smoking pack-years: 18.00 Smoking status: Current every day smoker Tobacco type: cigarettes and e-cigarettes/vaping Second hand tobacco smoke exposure: Yes Additional smoking assessment comments: Stop smoking cigarettes 2 years ago and now vaping Alcohol intake: former Substance use: current Substance use type: marijuana Gender identity (if verbalized by the patient): Female Sexual Orientation (if Verbalized by the Patient): Straight or Heterosexual Comments At the time of my signature, I reviewed and agree with the nursing past medical, surgical, social, and family history. There is no relevant family history pertinent to the patient complaint. Exam Narrative: GENERAL: This is a well-nourished, well-developed patient, in no apparent distress. HEAD: normocephalic, atraumatic. EYES: PERRL. Sclera clear/white. Vision is grossly intact. EARS: External ears normal NOSE: External nose normal with no obvious nasal discharge, nares without redness, no rhinorrhea. THROAT: Mucous membranes moist NECK: Neck supple CARDIOVASCULAR: Regular rate and rhythm without murmurs, gallops, or rubs. RESPIRATORY: Clear to auscultation. Breath sounds equal bilaterally. No wheezes, rales, or rhonchi. GASTROINTESTINAL: Abdomen soft, diffuse suprapubic tenderness, nondistended. Bowel sounds are active. SKIN: warm, intact with no suspicious lesions or rash, good texture and turgor. NEURO: imani
[2022-03-03 08:46] VITALS: BP 127/88; PULSE 71; RESP 20; TEMP 36.4; O2SAT 100
== END 2022-03-03 09:42 | disposition short-term general hospital (02) ==
PROVIDERS: Emergency Provider Nurse Practitioner Family
DX: R10.9 Unspecified abdominal pain (principal); R11.0 Nausea; F17.290 Nicotine dependence, other tobacco product, uncomplicated; K21.9 Gastro-esophageal reflux disease without esophagitis; F41.9 Anxiety disorder, unspecified; F32.A Depression, unspecified
CPT/HCPCS: 99212; G0463

== ENCOUNTER 2022-05-06 11:31 | Emergency (ER) | payer OTHER, SELFPAY ==
[2022-05-06 11:37] VITALS: BP 122/71; PULSE 81; RESP 18; TEMP 36.8; O2SAT 100
[2022-05-06 11:42] VITALS: BP 122/71; PULSE 81; RESP 18; TEMP 36.8; O2SAT 100
--- NOTE | 2022-05-06 11:44 | ED.URI ---
HPI - URI/Sore Throat General Chief Complaint: Upper Respiratory Infection Stated Complaint: soare throat Time Seen by Provider: 05/06/22 11:45 Source: patient Mode of arrival: ambulatory Limitations: no limitations History of Present Illness HPI Narrative: Florentin is a 31-year-old female patient presenting to the clinic today with complaints of sore throat nasal congestion times 1 day. She reports that she has felt feverish. Denies any known exposure to anybody with COVID, flu, or strep. MD elicited complaint: sore throat and nasal congestion Related Data Allergies Allergy/AdvReac Type Severity Reaction Status Date / Time No Known Allergies Allergy Verified 05/06/22 11:42 Review of Systems Review of Systems: Pertinent positives per HPI. Patient denies any rash, headache, visual changes, dizziness, cough, shortness of breath, chest pain, palpitations, nausea, vomiting, diarrhea, constipation, abdominal pain, or any urinary issues. PMF Past Medical History Medical History Anxiety and depression GERD (gastroesophageal reflux disease) Hiatal hernia Loss of teeth due to extraction Vaginal delivery 2 males Surgical History Surgical History H/O tubal ligation Family History Family History Father Acute myocardial infarction Mother Asthma Grandparent Acute myocardial infarction Social History Social History Smoking packs per day: 1.5 Smoking cigarettes per day: 30.0 Years smoked: 12 Smoking pack-years: 18.00 Smoking status: Current every day smoker Tobacco type: cigarettes and e-cigarettes/vaping Second hand tobacco smoke exposure: Yes Additional smoking assessment comments: Stop smoking cigarettes 2 years ago and now vaping Alcohol intake: former Substance use: current Substance use type: marijuana Living arrangements: with family Occupation/Education: occupation Gender identity (if verbalized by the patient): Female Sexual Orientation (if Verbalized by the Patient): Straight or Heterosexual Comments At the time of my signature, I reviewed and agree with the nursing past medical, surgical, social, and family history. There is no relevant family history pertinent to the patient complaint. Exam Narrative: General: Well-developed, well nourished, in no apparent distress Head: Normocephalic, atraumatic Eyes: Pupils equally round and reactive to light bilaterally, EOM intact, sclera and conjunctive clear, no discharge, lids normal Ears: TMs intact and clear, ear canals clear, no drainage, grossly hearing normal. Nose: Nares patent, clear nasal discharge, no inflammation, no sinus tenderness. Mouth: Oral pharynx without lesions or masses, good dentition, MMM. Oropharynx red with mild tonsillar enlargement Neck: Supple, trachea midline, enlargement of anterior cervical nodes, no thyroid masses or goiter palpable. Cardio: Regular rate and rhythm, s1 and s2 normal, no murmur appreciated. Resp: Clear to auscultation bilaterally, no rhonchi, rales, wheezing or rubs Course Course Emergency Course: Portions of this record may have been created with voice recognition software. Level of Care: Express Care Visit Vital Signs Vital signs: Vital Signs Temperature 36.8 C 05/06/22 11:37 Pulse Rate 81 05/06/22 11:37 Respiratory Rate 18 05/06/22 11:37 Blood Pressure 122/71 05/06/22 11:37 Pulse Oximetry 100 05/06/22 11:37 Oxygen Delivery Room Air 05/06/22 11:37 Temperature 36.8 C 05/06/22 11:42 Pulse Rate 81 05/06/22 11:42 Respiratory Rate 18 05/06/22 11:42 Blood Pressure 122/71 05/06/22 11:42 Pulse Oximetry 100 05/06/22 11:42 Oxygen Delivery Room Air 05/06/22 11:42 Vital signs revi
== END 2022-05-06 11:58 | disposition home or self-care (01) ==
PROVIDERS: Emergency Provider Nurse Practitioner Family
DX: J02.0 Streptococcal pharyngitis (principal); F17.290 Nicotine dependence, other tobacco product, uncomplicated; F12.90 Cannabis use, unspecified, uncomplicated; K21.9 Gastro-esophageal reflux disease without esophagitis
CPT/HCPCS: 87880; 99213; G0463

== ENCOUNTER 2022-08-06 14:34 | Emergency (ER) | payer OTHER, SELFPAY ==
[2022-08-06 14:44] VITALS: BP 101/70; PULSE 74; RESP 18; TEMP 36.9; O2SAT 100
--- NOTE | 2022-08-06 14:59 | ED.URI ---
HPI - URI/Sore Throat General Chief Complaint: Upper Respiratory Infection Stated Complaint: throat,ear,and head hurts Time Seen by Provider: 08/06/22 14:59 History of Present Illness HPI Narrative: PATIENT PRESENTS WITH A SORE THROAT THAT STARTED THIS AFTERNOON. NO FEVER NO COUGH NO TROUBLE SWALLOWING NO DROOLING. PATIENT STATES SHE DOES HAVE QUITE A BIT OF POSTNASAL DRAINAGE IS NOT TAKE ANYTHING [id number] FOR HER SYMPTOMS. Related Data Home Medications Medication Instructions Recorded Confirmed No Home Medications 08/06/22 08/06/22 Allergies Allergy/AdvReac Type Severity Reaction Status Date / Time No Known Allergies Allergy Verified 08/06/22 14:41 Review of Systems Review of Systems: CONSTITUTIONAL: DENIES CHILLS, OR SWEATS. REPORTS FEVER AND GENERALIZED BODY ACHES EYES: DENIES VISUAL CHANGES, REDNESS, OR DISCHARGE. ENT: DENIES OTALGIA. REPORTS NASAL CONGESTION RUNNY NOSE AND SORE THROAT CARDIOVASCULAR: DENIES CHEST PAIN, PALPITATIONS, OR EDEMA. RESPIRATORY: DENIES DYSPNEA. REPORTS OCCASIONAL COUGH GASTROINTESTINAL: DENIES ABDOMINAL PAIN, NAUSEA, VOMITING, OR DIARRHEA. GENITOURINARY: DENIES DYSURIA OR HEMATURIA. SKIN: DENIES RASH OR ITCHING. MUSCULOSKELETAL: DENIES BACK PAIN, JOINT PAIN, OR MYALGIA. REPORTS GENERALIZED BODY ACHES NEUROLOGIC: DENIES HEADACHE, NUMBNESS, OR WEAKNESS. PSYCHIATRIC: DENIES ANXIETY OR DEPRESSION. [facility] Past Medical History Medical History Anxiety and depression GERD (gastroesophageal reflux disease) Hiatal hernia Loss of teeth due to extraction Vaginal delivery 2 males Surgical History Surgical History H/O tubal ligation Family History Family History Father Acute myocardial infarction Mother Asthma Grandparent Acute myocardial infarction Social History Social History Smoking packs per day: 1.5 Smoking cigarettes per day: 30.0 Years smoked: 12 Smoking pack-years: 18.00 Smoking status: Current every day smoker Tobacco type: cigarettes and e-cigarettes/vaping Second hand tobacco smoke exposure: Yes Additional smoking assessment comments: Stop smoking cigarettes 2 years ago and now vaping Alcohol intake: former Substance use: current Substance use type: marijuana Living arrangements: with family Occupation/Education: occupation Gender identity (if verbalized by the patient): Female Sexual Orientation (if Verbalized by the Patient): Straight or Heterosexual Comments AT TIME OF SIGNATURE, AGREE WITH NURSING PAST MEDICAL, SURGICAL, SOCIAL AND FAMILY HISTORY. THERE IS NO RELEVANT FAMILY HISTORY PERTINENT TO THE PRESENTING COMPLAINT Exam Narrative: THE PATIENT IS A WELL-DEVELOPED, WELL-NOURISHED IN NO ACUTE DISTRESS. SKIN: SKIN IS WARM AND DRY WITHOUT ERYTHEMA, SWELLING OR EXUDATE. THERE IS GOOD TURGOR. NO TENTING. HEAD: ATRAUMATIC. NORMOCEPHALIC. NO TEMPORAL OR SCALP TENDERNESS. EYES: MOIST AND BRIGHT. SCLERA AND CONJUNCTIVAE NORMAL. NO DISCHARGE. PERRLA. EXTRAOCULAR MOTIONS INTACT. GROSS VISUAL ACUITY INTACT. EARS: PINNA IS NORMAL SHAPE AND CONTOUR. CLEAR EXTERNAL AUDITORY CANALS. TM PEARLY SHE[place]ELD WITH GOOD CONE OF LIGHT, NO ERYTHEMA OR SUPPURATION. BILATERAL CERUMEN NOTED NO GROSS HEARING DEFICIT. NOSE: PINK, MOIST MUCOSA WITH GOOD AIR MOVEMENT. CLEAR RHINORRHEA WITHOUT NASAL FLARING. SEPTUM MIDLINE. MOUTH: MOIST MUCOUS MEMBRANES. THROAT; MILD ERYTHEMA NOTED TO POSTERIOR OROPHARYNX WITH MODERATE POSTNASAL DRAINAGE. WITHOUT EXUDATE OR ULCERATION.. UVULA MIDLINE. NORMAL MOVEMENT OF SOFT PALATE. NECK: SUPPLE AND NONTENDER WITH FULL RANGE OF MOTION WITHOUT DISCOMFORT. NO MENINGEAL SIGNS. LUNGS: EQUAL AND BILATERAL BREATH SOUNDS WITHOUT WHEEZES, RALES OR RHONCHI. CHEST: THE
== END 2022-08-06 15:10 | disposition home or self-care (01) ==
PROVIDERS: Emergency Provider Nurse Practitioner Family
DX: R09.82 Postnasal drip (principal); J06.9 Acute upper respiratory infection, unspecified; F17.290 Nicotine dependence, other tobacco product, uncomplicated; K21.9 Gastro-esophageal reflux disease without esophagitis
CPT/HCPCS: 87081; 87880; 99213; G0463

== ENCOUNTER 2023-01-18 12:40 | Emergency (ER) | payer OTHER, SELFPAY ==
[2023-01-18 12:47] VITALS: BP 115/73; PULSE 63; RESP 18; TEMP 36.9; O2SAT 99
--- NOTE | 2023-01-18 13:12 | ED.URI ---
HPI - URI/Sore Throat General Chief Complaint: Upper Respiratory Infection Stated Complaint: cough/congestion Time Seen by Provider: 01/18/23 13:13 Source: patient and RN notes reviewed Mode of arrival: ambulatory Limitations: no limitations History of Present Illness HPI Narrative: 32-year-old female presents with concern for cough, chest congestion, sore throat. She reports symptoms started a couple of days ago. She reports chills at night. She reports her boyfriend had similar symptoms that his have improved. She is a vapor. MD elicited complaint: sore throat Related Data Home Medications Medication Instructions Recorded Confirmed omeprazole 20 mg capsule,delayed 30 mg PO DAILY 01/18/23 01/18/23 release sertraline 50 mg tablet 50 mg PO DAILY 01/18/23 01/18/23 Allergies Allergy/AdvReac Type Severity Reaction Status Date / Time No Known Allergies Allergy Verified 01/18/23 13:19 Review of Systems Review of Systems: CONSTITUTIONAL: Denies malaise or fever. Reports chills and sweats EYES: Denies visual changes, redness, or discharge. ENT: Reports rhinorrhea, congestion, sore throat. CARDIOVASCULAR: Denies chest pain, palpitations, or edema. RESPIRATORY: Reports cough, chest congestion, occasional chest pain with coughing. Denies dyspnea. GASTROINTESTINAL: Denies abdominal pain, nausea, vomiting, diarrhea SKIN: Denies rash or itching. MUSCULOSKELETAL: Reports myalgia. NEUROLOGIC: Denies headache. All systems reviewed & are unremarkable except as noted in HPI and below PMFSH Past Medical History Medical History Anxiety and depression GERD (gastroesophageal reflux disease) Hiatal hernia Loss of teeth due to extraction Vaginal delivery 2 males Surgical History Surgical History H/O tubal ligation Family History Family History Father Acute myocardial infarction Mother Asthma Grandparent Acute myocardial infarction Social History Social History Smoking packs per day: 1.5 Smoking cigarettes per day: 30.0 Years smoked: 12 Smoking pack-years: 18.00 Smoking status: Current every day smoker Tobacco type: cigarettes and e-cigarettes/vaping Second hand tobacco smoke exposure: Yes Additional smoking assessment comments: Stop smoking cigarettes 2 years ago and now vaping Alcohol intake: former Substance use: current Substance use type: marijuana Living arrangements: with family Occupation/Education: occupation Gender identity (if verbalized by the patient): Female Sexual Orientation (if Verbalized by the Patient): Straight or Heterosexual Comments At time of signature, agree with nursing past medical, surgical, social and family history. There is no relevant family history pertinent to the presenting complaint Exam Narrative: GENERAL: Well-appearing, well-nourished, and in no acute distress. HEAD: Normocephalic EYES: PERRLA, conjunctivae clear ENT: Nares clear. Mucous membranes moist. TM pearly hamilton with dull light reflex bilaterally; no tragal tenderness. Oropharynx not erythematous without lesions. Tonsils not enlarged and without exudate, no drooling, no hoarseness, no trismus, uvula midline. NECK: Supple. No lymphadenopathy CHEST: Very mild scattered wheeze, otherwise clear to auscultation, breath sounds equal. No rhonchi, rales, or stridor. No respiratory distress, speaks in full sentences. HEART: Regular rate and rhythm. No murmur heard. SKIN: Warm, dry, no rash. NEURO: Alert and oriented x3. PSYCH: Normal mood and affect Course Course Emergency Course: Patient is aware of diagnosis, understands and agrees to treatment plan. Anticipatory guidance given. Patient agrees to follow-up as directed and is
== END 2023-01-18 13:31 | disposition home or self-care (01) ==
PROVIDERS: Emergency Provider Nurse Practitioner
DX: J40 Bronchitis, not specified as acute or chronic (principal); F17.290 Nicotine dependence, other tobacco product, uncomplicated; F12.90 Cannabis use, unspecified, uncomplicated; K21.9 Gastro-esophageal reflux disease without esophagitis; F41.9 Anxiety disorder, unspecified; F32.A Depression, unspecified
CPT/HCPCS: 87081; 87880; 99213; G0463

== ENCOUNTER 2023-04-27 08:18 | Emergency (ER) | payer OTHER, SELFPAY ==
[2023-04-27 08:20] VITALS: BP 118/59; PULSE 93; RESP 20; TEMP 37.6; O2SAT 100
--- NOTE | 2023-04-27 08:37 | ED.URI ---
HPI - URI/Sore Throat General Chief Complaint: Upper Respiratory Infection Stated Complaint: Fever/Cough/Body Aches Time Seen by Provider: 04/27/23 08:38 Source: patient and RN notes reviewed Mode of arrival: ambulatory Limitations: no limitations History of Present Illness HPI Narrative: 32-year-old female presenting for complaint of headache, body aches, sinus pressure/congestion, cough. Onset yesterday. Son with similar symptoms x2 days. Denies sob, wheezing, n/v/d/fever/chills. Took Tylenol today for temp 101. MD elicited complaint: cough Related Data Home Medications Medication Instructions Recorded Confirmed No Home Medications 04/27/23 04/27/23 Allergies Allergy/AdvReac Type Severity Reaction Status Date / Time No Known Allergies Allergy Verified 04/27/23 08:43 Review of Systems Review of Systems: CONSTITUTIONAL: Endorses malaise, chills, sweats, fever EYES: Denies visual changes, redness, or discharge ENT: Reports rhinorrhea, congestion, denies sinus pain, otalgia, sore throat CARDIOVASCULAR: Denies chest pain, palpitations, edema RESPIRATORY: Reports cough, post nasal drainage. Denies dyspnea GASTROINTESTINAL: Denies abdominal pain, nausea, vomiting, diarrhea SKIN: Denies rash or itching MUSCULOSKELETAL: Endorses myalgia PMFSH Past Medical History Medical History (Updated 04/27/23 @ 08:55 by Fay Gil APRN) Anxiety and depression GERD (gastroesophageal reflux disease) Hiatal hernia Loss of teeth due to extraction Renal atrophy, right Vaginal delivery 2 males Surgical History Surgical History H/O tubal ligation Family History Family History Father Acute myocardial infarction Mother Asthma Grandparent Acute myocardial infarction Social History Social History Smoking packs per day: 1.5 Smoking cigarettes per day: 30.0 Years smoked: 12 Smoking pack-years: 18.00 Smoking status: Current every day smoker Tobacco type: cigarettes and e-cigarettes/vaping Second hand tobacco smoke exposure: Yes Additional smoking assessment comments: Stop smoking cigarettes 2 years ago and now vaping Alcohol intake: former Substance use: current Substance use type: marijuana Living arrangements: with family Occupation/Education: occupation Gender identity (if verbalized by the patient): Female Sexual Orientation (if Verbalized by the Patient): Straight or Heterosexual Exam Narrative: GENERAL: mildly Ill-appearing, nontoxic no acute distress. HEAD: Normocephalic EYES: PERRLA, conjunctivae clear ENT: Mucous membranes moist. NECK: Supple. No lymphadenopathy CHEST: Clear to auscultation, breath sounds equal. No wheezing, rhonchi, rales, or stridor. No respiratory distress, speaks in full sentences. HEART: Regular rate and rhythm. No murmur heard. SKIN: Warm, dry, no rash. NEURO: Alert and oriented x3. PSYCH: Normal mood and affect Course Course Emergency Course: Patient is aware of diagnosis, understands and agrees to treatment plan. Anticipatory guidance given. Patient agrees to follow-up as directed and is aware of reasons to seek care at the emergency department. Portions of this record may have been created with voice recognition software Level of Care: Express Care Visit Vital Signs Vital signs: Vital Signs Temperature 99.6 F 04/27/23 08:20 Pulse Rate 93 04/27/23 08:20 Respiratory Rate 20 04/27/23 08:20 Blood Pressure 118/59 L 04/27/23 08:20 Pulse Oximetry 100 04/27/23 08:20 Oxygen Delivery Room Air 04/27/23 08:20 Temperature 99.6 F 04/27/23 08:20 Pulse Rate 93 04/27/23 08:20 Respiratory Rate 20 04/27/23 08:20 Blood Pressure 118/59 L 04/27/23 08:20 Pulse Oximetry 100 04/27/23 08:20 Oxygen Delivery Room Air 04/27/23 08:20
== END 2023-04-27 08:52 | disposition home or self-care (01) ==
PROVIDERS: Emergency Provider Nurse Practitioner Family
DX: U07.1 COVID-19 (principal); F17.210 Nicotine dependence, cigarettes, uncomplicated; F17.290 Nicotine dependence, other tobacco product, uncomplicated; K21.9 Gastro-esophageal reflux disease without esophagitis
CPT/HCPCS: 87426; 87804; 99213; G0463

== ENCOUNTER 2023-06-02 19:31 | Emergency (ER) | payer OTHER, SELFPAY ==
[2023-06-02 19:34] VITALS: BP 130/70; PULSE 86; RESP 18; TEMP 36.7; O2SAT 100
--- NOTE | 2023-06-02 19:36 | ED.NAVMDI ---
HPI - Nausea/Vomiting/Diarrhea General Chief complaint: Nausea/Vomiting/Diarrhea Stated complaint: Diarrhea/Abdominal Pain Time Seen by Provider: 06/02/23 19:37 Source: patient Mode of arrival: ambulatory Limitations: no limitations History of Present Illness HPI Narrative: 32 yo F presents with c/o N/v/d, fatigue, chills for 1 day. Afebrile. States son sick with influenza. All systems reviewed and negative except as noted above. Related Data Home Medications Medication Instructions Recorded Confirmed No Home Medications 04/27/23 04/27/23 Allergies Allergy/AdvReac Type Severity Reaction Status Date / Time No Known Allergies Allergy Verified 04/27/23 08:43 Review of Systems Review of Systems: CONSTITUTIONAL: Denies fever, chills, or sweats. Reports fatigue. EYES: Denies visual changes, redness, or discharge. ENT: Denies rhinorrhea, congestion, sore throat, or otalgia. CARDIOVASCULAR: Denies chest pain, palpitations, or edema. RESPIRATORY: Denies cough or dyspnea. GASTROINTESTINAL: Denies abdominal pain. Reports nausea, vomiting, or diarrhea. GENITOURINARY: Denies dysuria or hematuria. SKIN: Denies rash or itching. MUSCULOSKELETAL: Denies back pain, joint pain. Reports myalgia. NEUROLOGIC: Denies headache, numbness, or weakness. PSYCHIATRIC: Denies anxiety or depression. All other systems reviewed are negative, except as documented in HPI. [facility] Past Medical History Medical History (Updated 06/02/23 @ 19:51 by Radha Osborn NP) Anxiety and depression GERD (gastroesophageal reflux disease) Hiatal hernia Loss of teeth due to extraction Renal atrophy, right Vaginal delivery 2 males Surgical History Surgical History H/O tubal ligation Family History Family History Father Acute myocardial infarction Mother Asthma Grandparent Acute myocardial infarction Social History Social History Smoking packs per day: 1.5 Smoking cigarettes per day: 30.0 Years smoked: 12 Smoking pack-years: 18.00 Smoking status: Current every day smoker Tobacco type: cigarettes and e-cigarettes/vaping Second hand tobacco smoke exposure: Yes Additional smoking assessment comments: Stop smoking cigarettes 2 years ago and now vaping Alcohol intake: former Substance use: current Substance use type: marijuana Living arrangements: with family Occupation/Education: occupation Gender identity (if verbalized by the patient): Female Sexual Orientation (if Verbalized by the Patient): Straight or Heterosexual Comments At time of signature, agree with nursing past medical, surgical, social and family history. There is no relevant family history pertinent to the presenting complaint. Exam Narrative: GENERAL: This is a well-nourished, well-developed patient, patient ill-appearing but no acute distress HEAD: normocephalic, atraumatic. EYES: PERRL. Sclera clear/white. Vision is grossly intact. EARS: External ears normal, auditory canals clear and without drainage, TMs normal without perforation. Hearing grossly intact. NOSE: External nose normal with no obvious nasal discharge, nares without redness, no rhinorrhea. THROAT: Mucous membranes moist, posterior pharynx clear. NECK: Neck supple, non-tender without lymphadenopathy, masses or thyromegaly. CARDIOVASCULAR: Regular rate and rhythm without murmurs, gallops, or rubs. RESPIRATORY: Clear to auscultation. Breath sounds equal bilaterally. No wheezes, rales, or rhonchi. GASTROINTESTINAL: Abdomen soft, non-tender, nondistended. Bowel sounds are active. No hepato-splenomegaly, or palpable masses. No guarding. SKIN: warm, Dry, intact with no suspicious lesions or rash, good texture and turgor. NEURO: awake, alert, and oriented to person, place and time. There were no obvious fo
== END 2023-06-02 19:53 | disposition home or self-care (01) ==
PROVIDERS: Emergency Provider Nurse Practitioner Family
DX: A08.4 Viral intestinal infection, unspecified (principal); F17.210 Nicotine dependence, cigarettes, uncomplicated; Z20.822 Contact with and (suspected) exposure to COVID-19
CPT/HCPCS: 87426; 99213; G0463

== ENCOUNTER 2023-08-30 13:24 | Emergency (ER) | payer OTHER, SELFPAY ==
[2023-08-30 13:31] VITALS: BP 100/58; PULSE 76; RESP 16; TEMP 36.5; O2SAT 100
--- NOTE | 2023-08-30 13:37 | ED.NAVMDI ---
HPI - Nausea/Vomiting/Diarrhea General Chief complaint: Nausea/Vomiting/Diarrhea Stated complaint: Vomiting Time Seen by Provider: 08/30/23 13:37 Source: patient Mode of arrival: ambulatory Limitations: no limitations History of Present Illness HPI Narrative: 33-year-old female presents with complaint of nausea vomiting since this morning. Patient states that she called in to work due to her symptoms and needs a work note. Was told that she cannot come back to work tomorrow either because of her symptoms. Afebrile. Reports she was seen in the ER 2 days ago with left lower quadrant abdominal pain, had CT scan that was normal. No longer having abdominal pain. No urinary symptoms today. Ate at [employer] restaurant last night and thinks she may have food poisoning. All systems reviewed and negative except as noted above. Related Data Allergies Allergy/AdvReac Type Severity Reaction Status Date / Time No Known Allergies Allergy Verified 07/28/23 08:52 Review of Systems Review of Systems: CONSTITUTIONAL: Denies fever, chills, or sweats. EYES: Denies visual changes, redness, or discharge. ENT: Denies rhinorrhea, congestion, sore throat, or otalgia. CARDIOVASCULAR: Denies chest pain, palpitations, or edema. RESPIRATORY: Denies cough or dyspnea. GASTROINTESTINAL: Denies abdominal pain. Reports nausea, vomiting. Denies diarrhea. GENITOURINARY: Denies dysuria or hematuria. SKIN: Denies rash or itching. MUSCULOSKELETAL: Denies back pain, joint pain, or myalgia. NEUROLOGIC: Denies headache, numbness, or weakness. PSYCHIATRIC: Denies anxiety or depression. All other systems reviewed are negative, except as documented in HPI. [facility] Past Medical History Medical History (Updated 08/30/23 @ 13:45 by Radha Osborn NP) Anxiety and depression GERD (gastroesophageal reflux disease) Hiatal hernia Loss of teeth due to extraction Renal atrophy, right Vaginal delivery 2 males Surgical History Surgical History (System 07/28/23 @ 08:52 by Chava Boggs) H/O tubal ligation Family History Family History Father Acute myocardial infarction Mother Asthma Grandparent Acute myocardial infarction Social History Social History (System 07/28/23 @ 08:52 by Chava Boggs) Smoking packs per day: 1.5 Smoking cigarettes per day: 30.0 Years smoked: 12 Smoking pack-years: 18.00 Smoking status: Current every day smoker Tobacco type: cigarettes and e-cigarettes/vaping Second hand tobacco smoke exposure: Yes Additional smoking assessment comments: Stop smoking cigarettes 2 years ago and now vaping Alcohol intake: former Substance use: current Substance use type: marijuana Living arrangements: with family Occupation/Education: occupation Gender identity (if verbalized by the patient): Female Sexual Orientation (if Verbalized by the Patient): Straight or Heterosexual Comments At time of signature, agree with nursing past medical, surgical, social and family history. There is no relevant family history pertinent to the presenting complaint. Exam Narrative: GENERAL: This is a well-nourished, well-developed patient, in no apparent distress. HEAD: normocephalic, atraumatic. EYES: PERRL. Sclera clear/white. Vision is grossly intact. EARS: External ears normal NOSE: External nose normal NECK: Neck supple, non-tender without lymphadenopathy, masses or thyromegaly. CARDIOVASCULAR: Regular rate and rhythm without murmurs, gallops, or rubs. RESPIRATORY: Clear to auscultation. Breath sounds equal bilaterally. No wheezes, rales, or rhonchi. GASTROINTESTINAL: Abdomen soft, non-tender, nondistended. Bowel sounds are active. No hepato-splenomegaly, or palpable masses. No guarding. SKIN: warm, Dry, intact with no suspicious lesions or rash, good texture and turgor. NEURO: awake, alert, and oriented to person, place and time. There were no obvious fo
== END 2023-08-30 13:53 | disposition home or self-care (01) ==
PROVIDERS: Emergency Provider Nurse Practitioner Family
DX: R11.2 Nausea with vomiting, unspecified (principal); F17.290 Nicotine dependence, other tobacco product, uncomplicated; K21.9 Gastro-esophageal reflux disease without esophagitis
CPT/HCPCS: 99213; G0463

== ENCOUNTER 2023-12-12 08:35 | Emergency (ER) | payer OTHER, SELFPAY ==
[2023-12-12 08:56] VITALS: BP 109/67; PULSE 87; RESP 18; TEMP 36.8; O2SAT 100
--- NOTE | 2023-12-12 09:49 | ED.URI ---
HPI - URI/Sore Throat General Chief Complaint: Upper Respiratory Infection Stated Complaint: Body/throat/ears/nose pain Time Seen by Provider: 12/12/23 09:20 Source: patient, RN notes reviewed and old records reviewed Mode of arrival: ambulatory Limitations: no limitations History of Present Illness HPI Narrative: 33 year old female who presents to [facility] care with complaints of 2 day history of sore throat, body aches and some chills with headache and neck pain. Patient has not taken any OTC medications for her symptoms except used cough drops. Patient reports possible fever this morning with chills noted. Patient denies any noted cough or any shortness of breath. MD elicited complaint: sore throat and other (body aches, headache) Onset (ago): day(s) (day 2 of symptoms) Pain scale (0-10): 7 Able to tolerate fluids by mouth: Yes Treatments prior to arrival: other (cough drops) Related Data Home Medications Medication Instructions Recorded Confirmed No Home Medications 12/12/23 12/12/23 Allergies Allergy/AdvReac Type Severity Reaction Status Date / Time No Known Allergies Allergy Verified 12/12/23 09:34 Review of Systems Review of Systems: CONSTITUTIONAL: Reports malaise, reports chills, sweats, possible fever this morning reported EYES: Denies visual changes, redness, or discharge. ENT: Reports rhinorrhea, congestion, sinus pain,no otalgia and positive for sore throat. CARDIOVASCULAR: Denies chest pain, palpitations, or edema. RESPIRATORY: Reports no cough.? Denies dyspnea. GASTROINTESTINAL: Denies abdominal pain, nausea, vomiting, diarrhea SKIN: Denies rash or itching. MUSCULOSKELETAL: reports myalgia. NEUROLOGIC: Reports headache and neck pain. All systems reviewed & are unremarkable except as noted in HPI and below PMFSH Past Medical History Medical History Anxiety and depression GERD (gastroesophageal reflux disease) Hiatal hernia Loss of teeth due to extraction Renal atrophy, right Vaginal delivery 2 males Surgical History Surgical History H/O tubal ligation History of pyeloplasty left Family History Family History Father Acute myocardial infarction Mother Asthma Grandparent Acute myocardial infarction Social History Social History Smoking packs per day: 1.5 Smoking cigarettes per day: 30.0 Years smoked: 12 Smoking pack-years: 18.00 Smoking status: Current every day smoker Tobacco type: cigarettes and e-cigarettes/vaping Second hand tobacco smoke exposure: Yes Additional smoking assessment comments: Stop smoking cigarettes 2 years ago and now vaping Alcohol intake: former Substance use: current Substance use type: marijuana Living arrangements: with family Occupation/Education: occupation Gender identity (if verbalized by the patient): Female Sexual Orientation (if Verbalized by the Patient): Straight or Heterosexual Comments At time of signature, agree with nursing past medical, surgical, social and family history. There is no relevant family history pertinent to the presenting complaint Exam Narrative: GENERAL: Well-appearing, well-nourished, and in no acute distress. HEAD: Normocephalic EYES: PERRLA, conjunctivae clear ENT: Nares clear, turbinates edematous and erythematous, clear discharge. Mucous membranes moist. TM pearly hamilton with dull light reflex bilaterally; no tragal tenderness. Oropharynx erythematous without lesions. Tonsils not enlarged and without exudate, no drooling, no hoarseness, no trismus, uvula midline.post nasal drainage NECK: Supple. No lymphadenopathy CHEST: Clear to auscultation, breath sounds equal. No wheezing, rhonchi, rales, or stridor. No respiratory distress, sp
[2023-12-12 10:14] LABS: EDCOVIDSCREEN Negative (Negative); EDINFLUASCREEN Negative (Negative); EDINFLUBSCREEN Negative (Negative)
[2023-12-12 10:15] LABS: EDSTREPNEGPOS1 Negative (Negative)
== END 2023-12-12 10:02 | disposition home or self-care (01) ==
PROVIDERS: Emergency Provider Registered Nurse
DX: J06.9 Acute upper respiratory infection, unspecified (principal); Z20.822 Contact with and (suspected) exposure to COVID-19; F17.290 Nicotine dependence, other tobacco product, uncomplicated; K21.9 Gastro-esophageal reflux disease without esophagitis
CPT/HCPCS: 87081; 87635; 87804; 87880; 99213; G0463

== ENCOUNTER 2023-12-27 08:01 | Emergency (ER) | payer OTHER, SELFPAY ==
[2023-12-27 08:05] VITALS: BP 104/65; PULSE 68; RESP 16; TEMP 36.8; O2SAT 100
--- NOTE | 2023-12-27 08:24 | ED.NAVMDI ---
HPI - Nausea/Vomiting/Diarrhea General Chief complaint: Nausea/Vomiting/Diarrhea Stated complaint: nausea Time Seen by Provider: 12/27/23 08:10 Source: patient Mode of arrival: ambulatory Limitations: no limitations History of Present Illness HPI Narrative: 33-year-old female presents with complaint of nausea vomiting diarrhea after eating [employer] last night. Afebrile. Abdominal cramping prior to episode of diarrhea otherwise no abdominal pain. Patient well-appearing. States she called into work today and manager pharmacy told her she needed work note. All systems reviewed and negative except as noted above. Related Data Home Medications Medication Instructions Recorded Confirmed No Home Medications 12/12/23 12/27/23 Allergies Allergy/AdvReac Type Severity Reaction Status Date / Time No Known Allergies Allergy Verified 12/27/23 08:15 Review of Systems Review of Systems: CONSTITUTIONAL: Denies fever, chills, or sweats. EYES: Denies visual changes, redness, or discharge. ENT: Denies rhinorrhea, congestion, sore throat, or otalgia. CARDIOVASCULAR: Denies chest pain, palpitations, or edema. RESPIRATORY: Denies cough or dyspnea. GASTROINTESTINAL: Reports abdominal cramping, nausea, vomiting, or diarrhea. GENITOURINARY: Denies dysuria or hematuria. SKIN: Denies rash or itching. MUSCULOSKELETAL: Denies back pain, joint pain, or myalgia. NEUROLOGIC: Denies headache, numbness, or weakness. PSYCHIATRIC: Denies anxiety or depression. All other systems reviewed are negative, except as documented in HPI. [facility] Past Medical History Medical History Anxiety and depression GERD (gastroesophageal reflux disease) Hiatal hernia Loss of teeth due to extraction Renal atrophy, right Vaginal delivery 2 males Surgical History Surgical History H/O tubal ligation History of pyeloplasty left Family History Family History Father Acute myocardial infarction Mother Asthma Grandparent Acute myocardial infarction Social History Social History Smoking packs per day: 1.5 Smoking cigarettes per day: 30.0 Years smoked: 12 Smoking pack-years: 18.00 Smoking status: Current every day smoker Tobacco type: cigarettes and e-cigarettes/vaping Second hand tobacco smoke exposure: Yes Additional smoking assessment comments: Stop smoking cigarettes 2 years ago and now vaping Alcohol intake: former Substance use: current Substance use type: marijuana Living arrangements: with family Occupation/Education: occupation Gender identity (if verbalized by the patient): Female Sexual Orientation (if Verbalized by the Patient): Straight or Heterosexual Comments At time of signature, agree with nursing past medical, surgical, social and family history. There is no relevant family history pertinent to the presenting complaint. Exam Narrative: GENERAL: This is a well-nourished, well-developed patient, in no apparent distress. HEAD: normocephalic, atraumatic. EYES: PERRL. Sclera clear/white. Vision is grossly intact. EARS: External ears normal NOSE: External nose normal NECK: Neck supple, non-tender without lymphadenopathy, masses or thyromegaly. CARDIOVASCULAR: Regular rate and rhythm without murmurs, gallops, or rubs. RESPIRATORY: Clear to auscultation. Breath sounds equal bilaterally. No wheezes, rales, or rhonchi. GASTROINTESTINAL: Abdomen soft, non-tender, nondistended. Bowel sounds are active. No hepato-splenomegaly, or palpable masses. No guarding. SKIN: warm, Dry, intact with no suspicious lesions or rash, good texture and turgor. NEURO: awake, alert, and oriented to person, place and time. There were no obvious focal neurologic abnormalities. EXTREMITIES: No join
== END 2023-12-27 08:23 | disposition home or self-care (01) ==
PROVIDERS: Emergency Provider Nurse Practitioner Family
DX: R11.2 Nausea with vomiting, unspecified (principal); R19.7 Diarrhea, unspecified; F17.290 Nicotine dependence, other tobacco product, uncomplicated; K21.9 Gastro-esophageal reflux disease without esophagitis
CPT/HCPCS: 99211; G0463

== ENCOUNTER 2024-03-22 09:34 | Emergency (ER) | payer OTHER, SELFPAY ==
[2024-03-22 09:42] VITALS: BP 111/67; PULSE 92; RESP 16; TEMP 37.2; O2SAT 100
--- NOTE | 2024-03-22 09:57 | ED_ITS ---
HPI - Abdominal Pain General Chief Complaint: Nausea/Vomiting/Diarrhea Stated Complaint: Diarrhea/Abdominal Pain Time Seen by Provider: 03/22/24 09:54 Source: patient and RN notes reviewed Mode of arrival: ambulatory Limitations: no limitations History of Present Illness HPI narrative: 33-year-old female presented for complaint of diarrhea. Onset yesterday at 4:00 p.m.. Endorses mild abdominal cramping but denies pain, hematochezia, melena, nausea, vomiting, fevers or chills. Denies sick contacts. She states she ate a lot of banana pudding yesterday. Reports a history of a right atrophic kidney. Not taking anything for symptoms Related Data Home Medications ?Medication ?Instructions ?Recorded ?Confirmed ?Last Taken ?Type No Home Medications 12/12/23 12/27/23 Unknown History Allergies Allergy/AdvReac Type Severity Reaction Status Date / Time No Known Allergies Allergy Verified 03/22/24 10:05 Review of Systems Review of Systems: CONSTITUTIONAL: Denies body aches, fever, chills ENT: Denies rhinorrhea, congestion CARDIOVASCULAR: Denies chest pain, palpitations, or edema. RESPIRATORY: Denies cough or dyspnea. GASTROINTESTINAL: Endorses diarrhea. Denies abdominal pain, nausea, vomiting, hematochezia, melena, hematemesis GENITOURINARY: Denies dysuria, hematuria, or CVA tenderness. SKIN: Denies rash MUSCULOSKELETAL: Denies back pain, joint pain, or myalgia. NEUROLOGIC: Denies headache, numbness, tingling, or weakness. All systems reviewed & are unremarkable except as noted in HPI and below PMFSH Past Medical History Medical History Renal atrophy, right Vaginal delivery 2 males Hiatal hernia GERD (gastroesophageal reflux disease) Anxiety and depression Loss of teeth due to extraction Surgical History Surgical History History of pyeloplasty left H/O tubal ligation Family History Family History Father Acute myocardial infarction Mother Asthma Grandparent Acute myocardial infarction Social History Social History Smoking packs per day: 1.5 Smoking cigarettes per day: 30.0 Years smoked: 12 Smoking pack-years: 18.00 Smoking status: Current every day smoker Tobacco type: cigarettes and e-cigarettes/vaping Second hand tobacco smoke exposure: Yes Additional smoking assessment comments: Stop smoking cigarettes 2 years ago and now vaping Alcohol intake: former Substance use: current Substance use type: marijuana Living arrangements: with family Occupation/Education: occupation Gender identity (if verbalized by the patient): Female Sexual Orientation (if Verbalized by the Patient): Straight or Heterosexual Comments At time of signature, I have reviewed and agree with nursing past medical, surgical, social and family history unless otherwise noted. Please see nursing chart for further information. There is no relevant family history pertinent to the presenting complaint Exam Narrative: GENERAL: Well-appearing, and in no acute distress. EYES: EOMI. Conjunctivae normal. ENT: Mucous membranes pink and moist. CHEST: No respiratory distress. Clear to auscultation. HEART: Regular rate and rhythm. No murmur appreciated. Normal peripheral pulses. ABDOMEN: abd soft, nondistended, normal active bowel sounds. Nontender abdomen; No guarding, rebound tenderness, asymmetry EXTREMITIES: Normal range of motion. No edema. SKIN: Warm, dry, no rash. Capillary refill normal. Normal skin turgor. NEURO: No focal deficits. Alert and oriented x3. PSYCH: Normal affect. Course Course Emergency Course: Patient is aware of diagnosis, understands and agrees to treatment plan. Anticipatory guidance given. Patient agrees to follow-up as directed and is aware of reasons to seek care at the emergency department. Portions of this record may have been created with voice recognition software Level of Care: Express Care Visit Vital Signs Vital signs: Vital Signs Temperature 98.9 F 03/22/24 09:42 Pulse Rate 92 03/22/24 09:42 Respiratory Rate 16 03/22/24 09:42 Blood Pressure 111/67 03/22/24 09:42 Pulse Oximetry 100 03/22/24 09:42 Oxygen Delivery Room Air 03/22/24 09:42 Temperature 98.9 F 03/22/24 09:42 Pulse Rate 92 03/22/24 09:42 Respiratory Rate 16 03/22/24 09:42 Blood Pressure 111/67 03/22/24 09:42 Pulse Oximetry 100 03/22/24 09:42 Oxygen Delivery Room Air 03/22/24 09:42 MDM - Abdominal Pain MDM Narrative Medical decision making narrative: Discussed physical exam findings. Advised supportive measures and signs/symptoms to go to the ER. Pt is appropriate for outpt treatment and f/u. Differential Diagnosis Differential diagnosis: Likely constipation, gastroenteritis and other (diarrhea, viral infection, food poisoning) Discharge Plan Discharge Clinical Impression: Diarrhea Qualifiers: Diarrhea type: unspecified type Qualified Code(s): R19.7 - Diarrhea, unspecified Patient Disposition: Home, Self-Care Condition: Stable Instructions: Antibiotic Form, Acute Diarrhea (ED) Additional Instructions: Stay hydrated. Take small sips of fluid containing electrolytes frequently. Clear liquids (broth, jello, tea, sprite, pedialyte) [place] foods (bananas, rice, applesauce, toast, crackers) Avoid fatty, greasy, fried or spicy foods. Limit dairy until symptoms are impro lyly. [id number] Imodium according to package directions for severe diarrhea Recommend probiotic such as align or lactobacillus to help with symptoms. You should go to the hospital if you experience persistent nausea and vomiting that does not resolve and does not allow you to tolerate any food or fluids, fevers, increasing abdominal pain, persistent diarrhea, dizziness, or for any other concerns. Follow up with primary care provider in 3 days. Patient Language: Croatian Prescriptions: No Action No Home Medications Follow-up/Referrals: PHYSICIAN NOT ON STAFF,NONSTAFF [Primary Care Provider] - Stand Alone Forms: Work/School Release IP
== END 2024-03-22 10:21 | disposition home or self-care (01) ==
PROVIDERS: Emergency Provider Nurse Practitioner Family
DX: R19.7 Diarrhea, unspecified (principal); F17.210 Nicotine dependence, cigarettes, uncomplicated
CPT/HCPCS: 99211; G0463

== ENCOUNTER 2024-05-07 09:45 | Emergency (ER) | payer OTHER, SELFPAY ==
--- NOTE | 2024-05-07 09:49 | ED_ITS ---
HPI - URI/Sore Throat General Stated Complaint: Urinary Problem/Ear Pain/Sore Throat Related Data Home Medications ?Medication ?Instructions ?Recorded ?Confirmed ?Last Taken ?Type No Home Medications 12/12/23 03/22/24 Unknown History Allergies Allergy/AdvReac Type Severity Reaction Status Date / Time No Known Allergies Allergy Verified 03/22/24 10:05 PMF Past Medical History Medical History Renal atrophy, right Vaginal delivery 2 males Hiatal hernia GERD (gastroesophageal reflux disease) Anxiety and depression Loss of teeth due to extraction Surgical History Surgical History History of pyeloplasty left H/O tubal ligation Family History Family History Father Acute myocardial infarction Mother Asthma Grandparent Acute myocardial infarction Social History Social History Smoking packs per day: 1.5 Smoking cigarettes per day: 30.0 Years smoked: 12 Smoking pack-years: 18.00 Smoking status: Current every day smoker Tobacco type: cigarettes and e-cigarettes/vaping Second hand tobacco smoke exposure: Yes Additional smoking assessment comments: Stop smoking cigarettes 2 years ago and now vaping Alcohol intake: former Substance use: current Substance use type: marijuana Living arrangements: with family Occupation/Education: occupation Gender identity (if verbalized by the patient): Female Sexual Orientation (if Verbalized by the Patient): Straight or Heterosexual Discharge Plan Discharge Patient Language: Cameroonian Prescriptions: No Action No Home Medications Follow-up/Referrals: PHYSICIAN NOT ON STAFF,NONSTAFF [Primary Care Provider] -
[2024-05-07 09:54] VITALS: BP 118/65; PULSE 95; RESP 16; TEMP 36.7; O2SAT 100
[2024-05-07 10:05] LABS: EDUAAPPEAR Clear; EDUABILI Negative (Negative); EDUABLOOD Negative (Negative); EDUACOLOR1 Light/Pale; EDUAGLUCOSE Negative (Negative); EDUAKETONE Negative (Negative); EDUALEUKO 1+ (Negative); EDUANITRATE Negative (Negative); EDUAPROTEIN Negative (Negative); EDUAUROBILI 0.2
--- NOTE | 2024-05-07 10:15 | ED.FEMALEGU ---
HPI - Female Genitourinary General Chief complaint: Urogenital-Female Stated complaint: Urinary Problem/Ear Pain/Sore Throat Time Seen by Provider: 05/07/24 10:16 Source: patient and RN notes reviewed Mode of arrival: ambulatory Limitations: no limitations History of Present Illness HPI Narrative: 33-year-old female presents with concern for urinary tract infection. Reports she has had urinary frequency, dysuria, suprapubic pressure, left flank pain since yesterday. MD elicited complaint: UTI Related Data Allergies Allergy/AdvReac Type Severity Reaction Status Date / Time No Known Allergies Allergy Verified 03/22/24 10:05 Review of Systems Review of Systems: CONSTITUTIONAL: Denies malaise, chills, sweats, or fever. CARDIOVASCULAR: Denies chest pain, palpitations, or edema. RESPIRATORY: Denies cough or dyspnea. GASTROINTESTINAL: Denies abdominal pain, nausea, vomiting, diarrhea GENITOURINARY: Reports dysuria, frequency, urgency, suprapubic pressure. Reports left flank pain. Denies hematuria. SKIN: Denies rash or itching. MUSCULOSKELETAL: Denies back pain or myalgia. All systems reviewed & are unremarkable except as noted in HPI and below PMFSH Past Medical History Medical History Renal atrophy, right Vaginal delivery 2 males Hiatal hernia GERD (gastroesophageal reflux disease) Anxiety and depression Loss of teeth due to extraction Surgical History Surgical History History of pyeloplasty left H/O tubal ligation Family History Family History Father Acute myocardial infarction Mother Asthma Grandparent Acute myocardial infarction Social History Social History Smoking packs per day: 1.5 Smoking cigarettes per day: 30.0 Years smoked: 12 Smoking pack-years: 18.00 Smoking status: Current every day smoker Tobacco type: cigarettes and e-cigarettes/vaping Second hand tobacco smoke exposure: Yes Additional smoking assessment comments: Stop smoking cigarettes 2 years ago and now vaping Alcohol intake: former Substance use: current Substance use type: marijuana Living arrangements: with family Occupation/Education: occupation Gender identity (if verbalized by the patient): Female Sexual Orientation (if Verbalized by the Patient): Straight or Heterosexual Comments At time of signature, agree with nursing past medical, surgical, social and family history. There is no relevant family history pertinent to the presenting complaint Exam Narrative: GENERAL: Well-appearing, well-nourished, and in no acute distress. HEAD: Normocephalic. EYES: PERRLA, conjunctivae clear. NECK: Supple. No lymphadenopathy CHEST: Clear to auscultation. No respiratory distress. HEART: Regular rate and rhythm. ABDOMEN: Soft, mild right lower quadrant tenderness upon palpation, nondistended, normal active bowel sounds, no palpable or pulsatile masses, no guarding. No CVA tenderness SKIN: Warm, dry, no rash. NEURO: Alert and oriented x3. PSYCH: Normal mood and affect Course Course Emergency Course: Patient is aware of diagnosis, understands and agrees to treatment plan. Anticipatory guidance given. Patient agrees to follow-up as directed and is aware of reasons to seek care at the emergency department. Portions of this record may have been created with voice recognition software Level of Care: Express Care Visit Vital Signs Vital signs: Vital Signs Temperature 98.1 F 05/07/24 09:54 Pulse Rate 95 05/07/24 09:54 Respiratory Rate 16 05/07/24 09:54 Blood Pressure 118/65 05/07/24 09:54 Pulse Oximetry 100 05/07/24 09:54 Oxygen Delivery Room Air 05/07/24 09:54 Temperature 98.1 F 05/07/24 09:54 Pulse Rate 95 05/07/24 09:54 Respiratory Rate 16 05/07/24 09:54 Blood Pressure 118/65 05/07/24 09:54 Pulse Oximetry 100 05/07/24 09:54 Oxygen Delivery Room Air 05/07/24 09:54 Reviewed. MDM - Female Genitourinary MDM Narrative Medical decision making narrative: Exam findings and UA show no acute concerns or changes; patient is non-toxic appearing and is in no distress. Patient is appropriate for outpatient treatment and follow-up. Differential Diagnosis Differential diagnosis: Likely urinary tract infection and cystitis Lab Data Labs: Lab Results 05/07/24 Range/Units 10:02 POC Urine Color Light/pale POC Urine Clarity Clear POC Urine pH 7.0 POC Ur Specif [place] 1.020 POC Urine Protein Negative (Negative) POC Ur Glucose (UA) Negative (Negative) POC Urine Ketones Negative (Negative) POC Urine Blood Negative (Negative) POC Urine Nitrite Negative (Negative) POC Urine Bilirubin Negative (Negative) POC Urine Urobilinogen 0.2 POC U Leukocyte Esteras 1+ (Negative) Critical Care Time Critical Care Time Critical Care Time: No Discharge Plan Discharge Clinical Impression: Urinary tract infection Patient Disposition: Home, Self-Care Condition: Stable Instructions: Antibiotic Form, Urinary Tract Infection in Women (ED) Additional Instructions: We will send a urine culture to the lab; if the culture identifies an organism that the prescribed antibiotic will not treat, you will receive a phone call from an urgent care staff member and an appropriate antibiotic will be prescribed. -Your symptoms should begin to improve within a day of starting antibiotics. But you should finish all the antibiotic pills you get. Otherwise your infection might come back. -Also recommend: increase water intake. Tylenol/ibuprofen as needed for pain or fever -Follow-up with your primary care provider for urine recheck or seek ER visit if condition worsens with high fever, nausea, vomiting and severe back pain. Patient Language: Bengali Prescriptions: New amoxicillin-pot clavulanate 875-125 mg tablet 1 tablet PO Q12H 7 Days Qty: 14 0RF Follow-up/Referrals: PHYSICIAN NOT ON STAFF,NONSTAFF [Primary Care Provider] - Stand Alone Forms: Work/School Release IP Time of Disposition: 10:21
--- OUTSIDE RECORDS SUMMARY | 2024-05-07 10:40 | XMS_ITS | Patient Health Summary ---
Author Organization [facility] Address [address] [place] [address] Care Team Providers Care Napper Tender Name Role Phone Patricia Craig APRN-PROCEDURES RN Primary Care Provider + Note from [facility],non-owned Affiliates and Associated Physician Practices is amultiple site organization consisting of ambulatory clinics and hospital sitesin [place], [place], [place] and [place]. This disclosure is being madepursuant to the Care Everywhere program and may not contain all information available regarding this patient. Last updated 17.[facility] Allergies No known active allergies Medications * Be aware that medications may not be up to date on this document. Alwaysverify current medications with the patient. * cephalexin (Keflex) 500 MG capsule(Started 05/31/2022) Take 1 (one) capsule by mouth as directed * docusate sodium (Colace) 100 MG capsule(Started 05/29/2022) Take 1 (one) capsule by mouth as directed * ketorolac (Toradol) 10 MG tablet(Started 05/31/2022) Take 1 (one) tablet by mouth as directed * oxybutynin (Ditropan) 5 MG tablet(Started 05/29/2022) Take 1 (one) tablet by mouth as directed * oxyCODONE, immediate release, (Roxicodone) 5 MG tablet(Started 05/29/2022) Take 1 (one) tablet by mouth as directed * oxyCODONE-acetaminophen (Percocet) 7.5-325 MG tablet(Started 05/31/2022) Take 1 (one) tablet by mouth as needed Immunizations * DTP(Given 10/24/1997, 07/19/1994, 08/11/1993, 02/09/1993, 1992) * HEP B VACCINE, PED/ADOL(Given 01/24/1995, 12/28/1994, 07/19/1994) * INFLUENZA VACCINE(Given 12/10/1993, 08/11/1993, 02/09/1993, 1992) * MMR(Given 11/28/2014, 10/24/1997, 12/10/1993) * POLIO OPV(Given 10/24/1997, 08/11/1993, 02/09/1993, 1992) * TDAP (7yrs+)(Given 07/07/2016, 11/28/2014) Social History Tobacco Use Types Packs/Day Years Used Date Smoking Tobacco: Never Smokeless Tobacco: Never Tobacco Cessation:Counseling Given: Not Answered Alcohol Use Standard Drinks/Week Comments Never 0 (1 standard drink = 0.6 oz pur e alcohol) Sex and Gender Information Value Date Recorded Sex Assigned at Not on file Gender Identity Not on file Sexual Orientation Not on file Last Filed Vital Signs Vital Sign Reading Time Taken Comments Blood Pressure 110/70 04/04/2022 2:05 PM TEST AND TURN UP TECHNICIAN Pulse 58 04/04/2022 2:05 PM TEST AND TURN UP TECHNICIAN Temperature - - Respiratory Rate - - Oxygen Saturation - - Inhaled Oxygen Concentration - - Weight 46.3 kg (102 lb) 04/04/2022 2:05 PM TEST AND TURN UP TECHNICIAN Height 147.3 cm (4' 10 ) 04/04/2022 2:05 PM TEST AND TURN UP TECHNICIAN Body Mass Index 21.32 04/04/2022 2:05 PM TEST AND TURN UP TECHNICIAN Procedures * AL LARYNGOSCOPY,FLEX FIBER,DIAGNOSTIC(Performed 04/04/2022) Performed for Throat pain Results * AL LARYNGOSCOPY,FLEX FIBER,DIAGNOSTIC (04/04/2022 2:55 PM TEST AND TURN UP TECHNICIAN) Narrative Baldev Sheth MD - 04/04/2022 2:55 PM TEST AND TURN UP TECHNICIAN Baldev Sheth MD 04/04/2022 3:37 PM Procedure Note Anesthesia: Lidocaine and Neosynephrine Endoscopy Type: Flexible Aktld-Gvugriftqmbwez-[id number] Procedure Details: Informed consent was obtained. The patient was placed in the sitting position. After topical anesthesia and decongestion, the 4 mm laryngoscope was passed. The nasal cavities, nasopharynx, oropharynx, hypopharynx, and larynx were all examined. Vocal cords were examined during respiration and phonation. The following findings were noted: Normal larynx and hypopharynx. Mild reflux changes. The patient tolerated procedure well. Complications: None Baldev Sheth MD PROCEDURE/MINOR SURG ICAL ORDERABLES Care Teams Napper Tender Relationship Specialty Start Date End Date Patricia Craig, [employer]OR PASTE MIXER-PROCEDURES RN [address] [place] [address] PCP - General 03/15/22
--- OUTSIDE RECORDS SUMMARY | 2024-05-07 10:40 | XMS_ITS | Referral Summary ---
Author Organization [address] lt Address [address] [place] [address] Care Team Providers Care Clay Stain Mixer Name Role Phone Sherwin Su WIRE MACHINE OPERATOR Primary Care Provider Allergies Active Allergy Reactions Criticality Noted Date Comments Codeine Nausea only Low Medications oxybutynin (DITROPAN) 5 mg tablet Take 1 tablet (5 mg total) by mouth 3 (three) times a day as needed (bladder spasms) for up to 10 days 30 tablet 3 3 Active Additional Information Patient not taking.Reported on 01/23/2023 docusate sodium (COLACE) 100 mg capsuleIndicati ons:constipatio n Take 1 capsule (100 mg total) by mouth 2 (two) times a day as needed for constipation for up to 5 days For constipation. 15 capsule 1 3 Active Additional Information Patient not taking.Reported on 01/23/2023 ketorolac (TORADOL) 10 mg tabletIndicatio ns:Postoperativ e Acute Pain Take 1 tablet (10 mg total) by mouth every 8 (eight) hours as needed for pain 20 tablet 3 Active Additional Information Patient not taking.Reported on 01/23/2023 sertraline (ZOLOFT) 50 mg tablet Take 1 tablet (50 mg total) by mouth daily Active lamoTRIgine (LaMICtal) 25 mg tablet Take 1 tablet (25 mg total) by mouth daily Active famotidine (PEPCID) 40 mg tabletIndicatio ns:Pharyngeal dysphagia Take 1 tablet (40 mg total) by mouth nightly 90 tablet 3 3 Active Active Problems Problem Noted Date Diagnosed Date Pharyngeal dysphagia 01/23/2023 Assessment & Plan (01/23/2023 2:20 PM CDT): 64 ounces of caffeine free and soda free fluid daily Avoid vaping Modified barium swallow study Mouthwash or warm salt water gargles after meals and before bedtime to prevent tonsil stones Laryngopharyngeal reflux (LPR) 01/23/2023 Assessment & Plan (01/23/2023 2:24 PM CDT): 64 ounces of caffeine free and soda free fluid daily Avoid vaping Modified barium swallow study Mouthwash or warm salt water gargles after meals and before bedtime to prevent tonsil stones Pepcid 40 mg at bedtime Laryngopharyngeal reflux discussed and Handout provided 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 UPJ (ureteropelvic junction) obstruction 023 Dysthymia 08/22/2019 Plantar warts 08/22/2019 Annual physical exam 08/22/2019 Small for gestational age (SGA) 08/01/2016 Overview (04/06/2022): Mother 1ppd smoker Estimated wgt without smoking 2600grams and NOT Sga 08/01/2016 Overview (04/06/2022): 37&6/7 weeks Immunizations Name Administration Dates Next Due Influenza, Unspecified 03/27/2019(Deferr ed: Patient Refused),03/27/2018(Deferred: Patient Refused) Social History Tobacco Use Types Packs/Day Years Used Date Smoking Tobacco: Every Day Vaping Smokeless Tobacco: Never Tobacco Cessation:Ready to Q uit: No; Counseling Given: Yes Comments:pt reports vaping Alcohol Use Standard Drinks/Week Comments Not Currently 0 (1 standard drink = 0.6 oz pur e alcohol) AUDIT-C Answer Date Recorded Q1: How often do you have a drink containing alcohol? 2-4 times a month 05/27/2022 Q2: How many drinks containi ng alcohol do you have on a typical day when you are drinking? Patient does not drink Q3: How often do you have si x or more drinks on one occasion? 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 Gender Identity Not on file Sexual Orientation Not on file Last Filed Vital Signs Vital Sign Reading Time Taken Comments Blood Pressure 123/70 01/23/2023 1:41 PM CDT Pulse 68 01/23/2023 1:41 PM CDT Temperature 36.4 C (97.5 F) 01/23/2023 1:41 PM CDT Respiratory Rate 18 05/29/2022 7:42 AM AUTOMATIC SCREWMAKER Oxygen Saturation 99% 01/23/2023 1:41 PM CDT Inhaled Oxygen Concentration - - Weight 44.7 kg (98 lb 8 oz) 01/23/2023 1:41 PM C DT Height 147.3 cm (4' 9.99 ) 01/23/2023 1:41 PM CD T Body Mass Index 20.59 01/23/2023 1:41 PM CDT Plan of Treatment Not on file Medical Devices Explanted Type Area Vat Cleaner Device Identifier Shelf Expiration Date Model / Serial / Lot Teal Orbit Universa 5fr 22cm Radiopaque Positioner Monofilament Tether [id number] - [id number] Implanted:Qty: 1 on 05/27/2022 by Cuba Perez DO at [facility] Explanted:Qty: 1 on 06/29/2022 by Cuba Perez DO Teal Orbit 10/07/2023 [id number] / / [id number] Insurance [facility] Advance Directives For more information, please contact: [phone] * Full Code (Latest Code Status on File) Date Activated Date Inactivated Comments 05/27/2022 6:34 PM 05/29/2022 7:47 PM Care Teams Clay Stain Mixer Relationship Specialty Start Date End Date Sherwin Su NP [address] [place] [address] PCP - General Nurse Practitioner 04/03/23
--- OUTSIDE RECORDS SUMMARY | 2024-05-07 10:40 | XMS_ITS | Referral Summary ---
Author Organization [facility] Address [address] [place] [address] Care Team Providers Care Assistant Manager Airside Operations Name Role Phone Patricia Craig APRN-[facility] Primary Care Provider + Source Comments [facility],non-owned Affiliates and Associated Physician Practices is amultiple site organization consisting of ambulatory clinics and hospital sitesin [place], [place], [place] and [place]. This disclosure is being madepursuant to the Care Everywhere program and may not contain all information available regarding this patient. Last updated 17.[facility] Allergies No known active allergies Medications * Be aware that medications may not be up to date on this document. Alwaysverify current medications with the patient. Medication Sig Dispensed Refills Start Date End Date Status cephalexin (Keflex) 500 MG capsule Take 1 (one) capsule by mouth as directed 05/31/2022 Active docusate sodium (Colace) 100 MG capsule Take 1 (one) capsule by mouth as directed 05/29/2022 Active ketorolac (Toradol) 10 MG tablet Take 1 (one) tablet by mouth as directed 05/31/2022 Active oxybutynin (Ditropan) 5 MG tablet Take 1 (one) tablet by mouth as directed 05/29/2022 Active oxyCODONE, immediate release, (Roxicodone) 5 MG tablet Take 1 (one) tablet by mouth as directed 05/29/2022 Active oxyCODONE-acetaminoph en (Percocet) 7.5-325 MG tablet Take 1 (one) tablet by mouth as needed 05/31/2022 Active Immunizations Name Administration Dates Next Due DTP 10/24/1997, 5,08/11/1993,02/09/1993,12/01/18 HEP B VACCINE, PED/ADOL 01/24/1995,12/28/1994, INFLUENZA VACCINE 12/10/1993,08/11/1993,02/09/19 93,1992 MMR 11/28/2014,10/24/1997,12/10/1993 POLIO OPV 10/24/1997,08/11/1993,02/09/1993 ,1992 TDAP (7yrs+) 07/07/2016,11/28/2014 Social History Tobacco Use Types Packs/Day Years [...] Comments Blood Pressure 110/70 04/04/2022 2:05 PM SURVEY MANAGER Pulse 58 04/04/2022 2:05 PM SURVEY MANAGER Temperature - - Respiratory Rate - - Oxygen Saturation - - Inhaled Oxygen Concentration - - Weight 46.3 kg (102 lb) 04/04/2022 2:05 PM SURVEY MANAGER Height 147.3 cm (4' 10 ) 04/04/2022 2:05 PM SURVEY MANAGER Body Mass Index 21.32 04/04/2022 2:05 PM SURVEY MANAGER Plan of Treatment Not on file Care Teams Assistant Manager Airside Operations Relationship Specialty Start Date End Date Patricia Craig, CIDER MAKER-MOLDING MACHINE TENDER [address] [place] [address] PCP - General 03/15/22
--- OUTSIDE RECORDS SUMMARY | 2024-05-07 10:40 | XMS_ITS | Clinical Summary ---
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 Hydronephrosis, left History of pneumonia Bladder pain Left flank pain Difficulty urinating in the [place] Family History Relation Name Status Comments Father Alive Mother Alive Social History Tobacco Use Types Packs/Day Years [...] on file 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 Gender Identity Not on file Sexual Orientation Not on file Obstetrics History Last Filed Vital Signs Vital Sign Reading Time Taken Comments Blood Pressure 123/70 01/23/2023 1:41 PM CDT Pulse 68 01/23/2023 1:41 PM CDT Temperature 36.4 C (97.5 F) 01/23/2023 1:41 PM CDT Respiratory Rate 18 05/29/2022 7:42 AM FILM PAINTER Oxygen Saturation 99% 01/23/2023 1:41 PM CDT Inhaled Oxygen Concentration - - Weight 44.7 kg (98 lb 8 oz) 01/23/2023 1:41 PM C DT Height 147.3 cm (4' 9.99 ) 01/23/2023 1:41 PM CD T Body Mass Index 20.59 01/23/2023 1:41 PM CDT Plan of Treatment Health Maintenance Due Date Last Done Comments Cervical Cancer Screening 1992 Hepatitis C Screening 1992 Pneumococcal vaccine <65 (1 of 2 - PCV) 1998 Regular Well Visit/Exam 18-64 2010 Depression Screening 08/21/2020 08/22/2019, 08/22/19 20 Influenza Vaccine (#1) 2023 4, 08/11/1993, 02/09/1993, Additional history exists DTaP/Tdap/Td Vaccine (8 - Td or Tdap) 07/07/2026 07/07/2016, 11/28/2014, 10/24/1997, Additional history exists HPV Vaccines Aged Out No longer eligi ble based on patient's age to complete this topic Varicella Vaccines Discontinued Medical Devices Explanted Type Area Fruit Cutter Device Identifier Shelf Expiration Date Model / Serial / Lot VeriWave Universa 5fr 22cm Radiopaque Positioner Monofilament Tether [id number] - [id number] Implanted:Qty: 1 on 05/27/2022 by Cuba Perez DO at Explanted:Qty: 1 on 06/29/2022 by Cuba Perez DO [employer] 10/07/2023 [id number] / / [id number] Insurance [facility] Member Subscriber Plan / Payer (Ef fective 2018-Present) Name:Florentin White Relation to Subscriber:Self Name:Florentin White Payer ID:[id number] (NAIC) Type:MEDICAID RISK OTHER Address: [place] [id number] Advance Directives For more information, please contact: [phone] * Full Code (Latest Code Status on File) Date Activated Date Inactivated Comments 05/27/2022 6:34 PM 05/29/2022 7:47 PM Care Teams Band Saw Filer Relationship Specialty Start Date End Date Sherwin Su NP [address] [address] PCP - General Nurse Practitioner 04/03/23
--- OUTSIDE RECORDS SUMMARY | 2024-05-07 10:40 | XMS_ITS | Clinical Summary ---
Author Organization [facility] Address [address] [place] [address] Care Team Providers Care Welder Machine Operator Name Role Phone Patricia Craig APRN-[facility] Primary Care Provider + Source Comments [facility],non-owned Affiliates and Associated Physician Practices is amultiple site organization consisting of ambulatory clinics and hospital sitesin [place], [place], [place] and [place]. This disclosure is being madepursuant to the Care Everywhere program and may not contain all information available regarding this patient. Last updated 17.[facility] Allergies No known active allergies Medications * [...] Administration Dates Next Due DTP 10/24/1997, 5,08/11/1993,02/09/1993,12/01/18 93 HEP B VACCINE, PED/ADOL 01/24/1995,12/28/1994, INFLUENZA VACCINE 12/10/1993,08/11/1993,02/09/19 93,1992 MMR 11/28/2014,10/24/1997,12/10/1993 POLIO OPV 10/24/1997,08/11/1993,02/09/1993 ,1992 TDAP (7yrs+) 07/07/2016,11/28/2014 Family History Medical History Relation Name Comments Depression Father Asthma Mother Cancer - Other Mother Depression Mother Relation Name Status Comments Father Mother Social History Tobacco Use Types Packs/Day Years [...] Comments Blood Pressure 110/70 04/04/2022 2:05 PM SIGN OUT CLERK Pulse 58 04/04/2022 2:05 PM SIGN OUT CLERK Temperature - - Respiratory Rate - - Oxygen Saturation - - Inhaled Oxygen Concentration - - Weight 46.3 kg (102 lb) 04/04/2022 2:05 PM SIGN OUT CLERK Height 147.3 cm (4' 10 ) 04/04/2022 2:05 PM SIGN OUT CLERK Body Mass Index 21.32 04/04/2022 2:05 PM SIGN OUT CLERK Plan of Treatment Health Maintenance Due Date Last Done Comments PAP SMEAR 1992 HEPATITIS B VACCINE (4 of 4 - 4-dose series) 02/22/1995 01/24/1995, 12/28/1994, 07/19/1994 HIV SCREENING 08/28/2007 HEPATITIS C SCREENING 08/23/2010 COVID-19 VACCINE ( season) 2023 INFLUENZA VACCINE (#1) 2023 4, 08/11/1993, 02/09/1993, Additional history exists DEPRESSION SCREENING 03/27/2024 DTAP/TDAP/TD VACCINES (8 - Td or Tdap) 07/07/2026 07/07/2016, 11/28/2014, 10/24/1997, Additional history exists ZOSTER VACCINE (1 of 2) 2042 HIB VACCINE Aged Out No longer eligi ble based on patient's age to complete this topic HPV VACCINE Aged Out No longer eligi ble based on patient's age to complete this topic MENINGOCOCCAL (Group B) VACCINE Aged Out No longer eligible based on patient's age to complete this topic MENINGOCOCCAL VACCINE Aged Out No peter rambo eligible based on patient's age to complete this topic PNEUMOCOCCAL VACCINE Aged Out No long er eligible based on patient's age to complete this topic Care Teams Welder Machine Operator Relationship Specialty Start Date End Date Patricia Craig, VARIETY PERFORMER-CATTLE EXAMINER [address] [place] [address] PCP - General 03/15/22
--- OUTSIDE RECORDS SUMMARY | 2024-05-07 10:41 | XMS_ITS | Clinical Summary ---
Author Organization [facility] Address [address] [place] [place] [address] Phone Care Team Providers Care Associate Programmer Name Role Phone Sherwin Su APRN, SALES REVIEW CLERK Primary Care Pr ovider Jesse Barnard APRN, SALES REVIEW CLERK Unavailable [phone] Katy Esteban MD Unavailable [phone] Zaira Hanley APRN, [facility] Unavailable + [phone] Yolanda Ashby APRN, SALES REVIEW CLERK Unavailable Eleazar Allred MD Unavailable Allergies Active Allergy Reactions Criticality Noted Date Comments Codeine Nausea,Vomiting Low 07/19/2015 Patient states reaction was when she was younger. States she has taken it as an adult without any adverse effects. Medications famotidine (PEPCID) 20 MG TabletIndicatio ns:Bulimia nervosa Take 1 Tablet by mouth 2 times daily. 60 Tablet 3 10/10/2023 Active mirtazapine (REMERON) 15 MG TabletIndicatio ns:Bulimia nervosa,ROGE (generalized anxiety disorder) Take 1 Tablet by mouth nightly. 30 Tablet 3 10/10/2023 Active acetaminophen (Midol) 650 MG Tablet Controlled Release Take 650 mg by mouth every 6 hours as needed. Active omeprazole (PriLOSEC) 20 MG CAPSULE DELAYED RELEASE Take 1 Capsule by mouth daily. 90 Capsule 11/09/2023 Active Active Problems Problem Noted Date Diagnosed Date Anxiety 11/21/2022 Seizure-like activity 10/28/2022 Chronic sore throat 02/28/2022 Dysthymia 08/22/2019 08/01/2016 Overview (08/01/2016): 37&6/7 weeks Small for gestational age (SGA) 08/01/2016 Overview (08/01/2016): Mother 1ppd smoker Estimated wgt without smoking 2600grams and NOT Sga Immunizations Immunization Administration Dates Next Due DTP Vaccine 10/24/1997, 5,08/11/1993,1992,1992 Hepatitis B Vaccine, Pediatric/adolescent 01/24/1995,12/28/1994,07/19/1994 Hib Vaccine,unspecified Formulation 11/25,08/11/1993,02/09/1993,1992 MMR Vaccine 11/28/2014,10/24/1997,12/10/1993 OPV 10/24/1997, 4,02/09/1993,1992 TDAP Vaccine 07/07/2016,11/28/2014 Family History Medical History Relation Name Comments No Known Problems Brother 1 Diabetes Brother 2 Dada Buckley Heart Attack Father 5 heart attacks Congestive Heart Failure Maternal Grandmother Annel craig Anxiety disorder Mother Antonina White Asthma Mother Antonina White Breast Cancer Mother Antonina White Cancer Mother Antonina White SPINE Chronic Obstructive Pulmonary Disease Mother Antonina White Depression Mother Antonina White Other-comment Mother Antonina White FLLU AND PNUEM ONIA Labor Mother Antonina White Diabetes Nephew Diabetes Other Heart Attack Paternal Grandfather Jose Kempls Sr Heart Attack Paternal Grandmother Sonia Vasques No Known Problems Sister Relation Name Status Comments Brother 1 Alive Brother 2 Dada Buckley Alive Father Alive Maternal Grandfather Maternal Grandmother Annel Gamez Alive Mother Antonina White Nephew Alive Other Paternal Grandfather Jose Kempls Sr Paternal Grandmother Sonia Vasques Alive Sister Alive Social History Tobacco Use Types Packs/Day Years Used Date Smoking Tobacco: Former Cigarettes 1 10 2 008 - 2018 Smokeless Tobacco: Never Tobacco Cessation:Counseling Given: Not Answered Alcohol Use Standard Drinks/Week Comments No 0 (1 standard drink = 0.6 oz pur e alcohol) [facility] Utilities Answer Date Recorded In the past 12 months has th e electric, gas, oil, or water company threatened to shut off services in your home? Patient declined 10/09/2023 Social Connection and Isolation Panel [NHANES] A nswer Date Recorded In a typical week, how many times do you talk on the phone with family, friends, or neighbors? Twice a week 10/09/19 How often do you get togethe r with friends or relatives? Once a week 10/09/2023 How often do you attend chur ch or congregational services? Never 10/09/2023 Do you belong to any clubs o r organizations such as yarsanism groups, unions, fraternal or athletic groups, or school groups? No 10/09/2023 How often do you attend meet ings of the clubs or organizations you belong to? Patient declined 10/09/2023 Are you , , di vorced, , never , or living with a partner? Living with partner 10/09/2023 AUDIT-C Answer Date Recorded Q1: How often do you have a drink containing alcohol? Never 10/09/2023 Q2: How many drinks containi ng alcohol do you have on a typical day when you are drinking? Patient does not drink Q3: How often do you have si x or more drinks on one occasion? Never 10/09/2023 Overall Financial Resource Strain (CARDIA) Answe r Date Recorded How hard is it for you to pa y for the very basics like food, housing, medical care, and heating? Patient declined 09/13/2023 PHQ-2 Answer Date Recorded Total Score - Questions 1-9 19 08/25 [facility] [place] of Occupat ional Health - Occupational Stress Questionnaire Answer Date Recorded Do you feel stress - tense, restless, nervous, or anxious, or unable to sleep at night because your mind is troubled all the time - these days? Very much 10/09/2023 Exercise Vital Sign Answer Date Recorde d On average, how many days pe r week do you engage in moderate to strenuous exercise (like a brisk walk)? 5 days 10/09/2023 On average, how many minutes do you engage in exercise at this level? 150+ min 10/09/2023 Hunger Vital Sign Answer Date Recorded Within the past 12 months, y ou worried that your food would run out before you got the money to buy more. Patient declined Within the past 12 months, t he food you bought just didn't last and you didn't have money to get more. Patient declined PRAPARE - Transportation Answer Date Re corded In the past 12 months, has l ack of transportation kept you from medical appointments or from getting medications? Yes 09/24 In the past 12 months, has l ack of transportation kept you from meetings, work, or from getting things needed for daily living? Yes 10/09/2023 Housing Stability Vital Sign Answer Tien e Recorded In the last 12 months, was t here a time when you were not able to pay the mortgage or rent on time? Yes 05/14/2023 In the last 12 months, how many places have you lived? 1 05/14/2023 In the last 12 months, was t here a time when you did not have a steady place to sleep or slept in a senior care (including now)? No 05/14/2023 Housing Stability Vital Sign Answer Tien e Recorded In the last 12 months, was t here a time when you were not able to pay the mortgage or rent on time? Patient declined 09/13/19 24 Number of Times Moved in the Last Year Not on fi le 09/13/2023 At any time in the past 12 m [facility], were you homeless or living in a senior care (including now)? Patient declined 09/13/2023 Education Answer Date Recorded What is the highest level of school you have completed or the highest degree you have received? 10th grade 10/22/2021 Sexually Active Control Partners Comments Yes Surgical Male Comments No Sex and Gender Information Value Date Recorded Sex Assigned at Not on file Legal Sex Female 8:50 PM CDT Gender Identity Not on file Sexual Orientation Not on file Last Filed Vital Signs Vital Sign Reading Time Taken Comments Blood Pressure 117/86 01/25/2024 9:51 AM CDT Pulse 87 01/25/2024 9:51 AM CDT Temperature 36 C (96.8 F) 11/09/2023 9:34 AM CDT Respiratory Rate 16 01/25/2024 9:51 AM CDT Oxygen Saturation 97% 01/25/2024 9:51 AM CDT Inhaled Oxygen Concentration - - Weight 44.2 kg (97 lb 6.4 oz) 01/25/2024 9:51 AM CDT Height 147.3 cm (4' 10 ) 01/25/2024 9:51 AM CDT Body Mass Index 20.36 01/25/2024 9:51 AM CDT Plan of Treatment Health Maintenance Due Date Last Done Comments Hepatitis B Immunization (4 of 4 - 4-dose series) 02/22/1995 01/24/1995, 12/28/1994, 07/19/1994 Influenza Immunization (#1) 2023 SARS-COV-2 Immunization ( - season) 2023 Pap Smear 01/24/2026 01/24/2023 DTaP/Tdap/Td Immunization (9 - Td or Tdap) 07/07/2026 07/07/2016, 11/28/2014, 11/10/2006, Additional history exists Cervical Cancer Screening (CCS) 01/25/2028 HPV/Cotest 01/25/2028 01/24/2023 Respiratory Syncytial Virus (RSV) Immunization (Adult) (1 - 1-dose 75+ series) 08/28/2067 Hepatitis C Virus (HCV) Screening Discontinued Meningococcal Immunization (ACWY) Aged Out No longer eligible based on patient's age to complete this topic Pneumococcal Immunization Combined Aged Out No longer eligible based on patient's age to complete this topic Rotavirus Immunization Aged Out No lo nger eligible based on patient's age to complete this topic Goals Goal Patient Goal Type Associated Problems Recent Progress Patient-Stated? Author I want to wake up and want to be alive/feel annalise in life Behavioral Health On track(12/10/19 8:30 AM CDT) Yes Clotilde Fay, HOSPITAL ADMITTING CLERK Procedures Procedure Name Priority Date/Time Associated Diagnosis Comments HUMAN PAPILLOMA VIRUS (HPV) Routine 01/24/2023 10:04 AM CDT Encounter for well woman exam with routine gynecological exam PATHOLOGY CYTOLOGY VULCANIZED FIBER UNIT OPERATOR Routine 01/24/2023 10:04 AM CDT Encounter for well woman exam with routine gynecological exam from Last 3 Months or Most Recently Relevant to Health Maintenance Results * PATHOLOGY CYTOLOGY VULCANIZED FIBER UNIT OPERATOR (01/24/2023 10:04 AM CDT) SPECIMEN ADEQUACY Satisfactory for evaluation. Endocervical/transf ormation zone component is present. 02/08/2023 3:14 PM [facility]ER [facility] DESCRIPTIVE DIAGNOSIS NEGATIVE FOR INTRAEPITHELIAL LESIONS OR MALIGNANCY. 02/08/2023 3:14 PM [facility] Automated Examination Analysis of this sample has been assisted by an automated imaging and review system ([employer], [employer] / [email or web address], [place], [place]). This case is further evaluated and finalized by a draw fire operator and/or pathologist. 02/08/2023 3:14 PM [facility] Disclaimer The PAP smear is a screening test designed to detect cancerous or precancerous cells of the uterine cervix. It is one of the best means available for detection of cervical cancer but still carries an inherent false-negative rate. The consequences of a false-negative PAP result can be minimized by adhering to current screening guidelines. The following are general guidelines recommended by the ACS, ASCP, ASCCP, and ACOG: PAP testing is recommended every three years for women 21-29, Co-Testing , a PAP test in conjunction with an HPV (Human Papillomavirus) test for women ages 30-65, and no PAP or HPV testing for women under the age of 21 or older than 65 unless clinically indicated. 02/08/2023 3:14 PM [facility] Case Report Gynecologic Cytology Report Case: [id number] Authorizing Provider: Delaney Gardner APRN, LAURA Collected: 01/24/2023 10:04 AM Ordering Location: [facility] Received: 01/24/2023 10:04 AM [facility] First Screen: Roma Aguirre Rescreen: Daisy Vargas Specimen: TP Screen, Cervix/Endocervix 02/08/2023 3:14 PM [facility] Other (Cervix/Endocerv ix) Non-Phlebotomy Collection / Unknown 01/24/2023 10:04 AM CDT 01/24/2023 10:04 AM CDT us Delaney Gardner WET CHEMISTRY ANALYST, SALES REVIEW CLERK PATHOLOGY/CYTOLOGY ORDER ASHANTI Final Result [facility] [address] [place] [address], * HUMAN PAPILLOMA VIRUS (HPV) (01/24/2023 10:04 AM CDT) HPV OTHER HIGH RISK TYPES, PCR NEGATIVE NEGATIVE 01/25/2023 1:48 PM CDT [facility] Comment: The following Other High Risk types were not detected: 31, 33, 35, 39, 45, 51, 52, 56, 58, 59, 66, and 68. A negative high-risk HPV result does not exclude the possibility of future cytologic HSIL or underlying CIN2-3 or cancer. The presence of PCR inhibitors may cause false negative or invalid results. If concentrations of whole blood in the sample exceed 1.5% (dark red or brown coloration) in PreservCyt solution, there is a likelihood of obtaining a false-negative result. HPV TYPE 16 NEGATIVE NEGATIVE 01/25/2023 1:48 PM CDT [facility] Comment: A negative high-risk HPV result does not exclude the possibility of future cytologic HSIL or underlying CIN2-3 or cancer. The presence of PCR inhibitors may cause false negative or invalid results. If concentrations of whole blood in the sample exceed 1.5% (dark red or brown coloration) in PreservCyt solution, there is a likelihood of obtaining a false-negative result. HPV TYPE 18 NEGATIVE NEGATIVE 01/25/2023 1:48 PM CDT [facility] Comment: A negative high-risk HPV result does not exclude the possibility of future cytologic HSIL or underlying CIN2-3 or cancer. The presence of PCR inhibitors may cause false negative or invalid results. If concentrations of whole blood in the sample exceed 1.5% (dark red or brown coloration) in PreservCyt solution, there is a likelihood of obtaining a false-negative result. HPV ORDER BE USED FOR SCREENING OR DIAGNOSTIC SCREENING 01/25/2023 1:48 PM CDT [facility] Other Non-Phlebotomy Collection / Unknown 01/24/2023 10:04 AM CDT 01/24/2023 10:04 AM CDT Narrative [facility] - 01/25/2023 1:48 PM CDT Performed by Real-Time Polymerase Chain Reaction (PCR) on the [employer] 4800. This assay has been validated for use with post-aliquot samples from the [email or web address] T5000 processor. us Delaney Gardner WET CHEMISTRY ANALYST, SALES REVIEW CLERK LAB SEND OUTS Final Re sult [facility] [address] [place] [address], [facility] [address] [place] [address] from Last 3 Months or Most Recently Relevant to Health Maintenance Insurance [place]ICAID [place] Advance Directives * Full Code (Latest Code Status on File) Date Activated Date Inactivated Comments 08/01/2016 7:08 AM 08/03/2016 3:57 PM CPR-Full Kailey tment: FULL ARREST: Attempt Resuscitation/CPR wit intubation and mechanical ventilation. PRE-ARREST: Use entire range of life support measures to stabilize the patient. * Full Code Date Activated Date Inactivated Comments 07/28/2016 6:01 AM 07/28/2016 12:25 PM CPR-Full Kailey tment: FULL ARREST: Attempt Resuscitation/CPR wit intubation and mechanical ventilation. PRE-ARREST: Use entire range of life support measures to stabilize the patient. * Full Code Date Activated Date Inactivated Comments 07/21/2016 3:14 PM 07/21/2016 6:48 PM CPR-Full Robel atment: FULL ARREST: Attempt Resuscitation/CPR wit intubation and mechanical ventilation. PRE-ARREST: Use entire range of life support measures to stabilize the patient. * Full Code Date Activated Date Inactivated Comments 06/25/2016 10:20 PM 06/26/2016 1:42 AM CPR-Full Kailey tment: FULL ARREST: Attempt Resuscitation/CPR wit intubation and mechanical ventilation. PRE-ARREST: Use entire range of life support measures to stabilize the patient. Care Teams Associate Programmer Relationship Specialty Start Date End Date Sherwin Su APRN, SALES REVIEW CLERK [address] [facility] [address] [place] [address] PCP - General Advanced Practice Nurse 09/30/22 Jesse Barnard APRN, SALES REVIEW CLERK [address] [place] [address] Nurse Practitioner Advanced Practice Nurse 01/30/23 Katy Esteban MD [address]2 [facility] [address] [place] [address] Consulting Physician Urology 03/08/22 Zaira Hanley APRN, ORDER ANALYST [address] [place] [address] Nurse Practitioner Advanced Practice Nurse 10/28/22 Yolanda Ashby APRN, SALES REVIEW CLERK [address] [place] [address] Nurse Practitioner Advanced Practice Nurse 11/16/22 Eleazar Allred MD [address] [facility] [address] [address] Consulting Physician Urology 01/24/24
--- OUTSIDE RECORDS SUMMARY | 2024-05-07 10:41 | XMS_ITS ---
Author Organization [facility] Address [address] [place] [address] Phone Care Team Providers Care Microelectronics Assembler Name Role Phone Sherwin Su APRN, VACUUM METALIZER OPERATOR Primary Care Pr ovider Jesse Barnard APRN, VACUUM METALIZER OPERATOR Unavailable [phone] Katy Esteban MD Unavailable [phone] Zaira Hanley APRN, HVAC OPERATIONS TECHNICIAN Unavailable [phone] Yolanda Ashby APRN, VACUUM METALIZER OPERATOR Unavailable Eleazar Allred MD Unavailable [facility] Status:Enrolled (Active) Start date:04/24/2024 Enrollment date:04/24/2024 Related social drivers of health:Social Connections, Tobacco Use, Financial Resource Strain, Depression, Stress, Food Insecurity, Transportation Needs, Housing Stability, Utilities Continued Care and Services Coordination
== END 2024-05-07 10:28 | disposition home or self-care (01) ==
PROVIDERS: Emergency Provider Nurse Practitioner
DX: N39.0 Urinary tract infection, site not specified (principal); F17.290 Nicotine dependence, other tobacco product, uncomplicated; K21.9 Gastro-esophageal reflux disease without esophagitis
CPT/HCPCS: 81003; 87086; 99213; G0463

== ENCOUNTER 2024-05-26 12:19 | Emergency (ER) | payer OTHER, SELFPAY ==
[2024-05-26 12:26] VITALS: BP 117/69; PULSE 76; RESP 24; TEMP 36.6; O2SAT 100
--- NOTE | 2024-05-26 13:14 | ED.URI ---
HPI - URI/Sore Throat General Chief Complaint: Upper Respiratory Infection Stated Complaint: Sore Throat/Headache/Body Aches/Dizziness Time Seen by Provider: 05/26/24 13:15 Source: patient and RN notes reviewed Mode of arrival: ambulatory Limitations: no limitations History of Present Illness HPI Narrative: 33-year-old female presents with concern for 4 day history of headache, sinus pressure, sore throat, body aches, dizziness. Reports she has been taking Excedrin migraine. MD elicited complaint: cough and sore throat Related Data Allergies Allergy/AdvReac Type Severity Reaction Status Date / Time No Known Allergies Allergy Verified 05/26/24 12:24 Review of Systems Review of Systems: CONSTITUTIONAL: Reports malaise, chills, sweats. Denies fever. EYES: Denies visual changes, redness, or discharge. ENT: Reports rhinorrhea, congestion, and sore throat. CARDIOVASCULAR: Denies chest pain, palpitations, or edema. RESPIRATORY: Reports cough. Denies dyspnea. GASTROINTESTINAL: Denies abdominal pain, nausea, vomiting, diarrhea SKIN: Denies rash or itching. MUSCULOSKELETAL: Reports myalgia. NEUROLOGIC: Reports headache. All systems reviewed & are unremarkable except as noted in HPI and below PMFSH Past Medical History Medical History Renal atrophy, right Vaginal delivery 2 males Hiatal hernia GERD (gastroesophageal reflux disease) Anxiety and depression Loss of teeth due to extraction Surgical History Surgical History History of pyeloplasty left H/O tubal ligation Family History Family History Father Acute myocardial infarction Mother Asthma Grandparent Acute myocardial infarction Social History Social History Smoking packs per day: 1.5 Smoking cigarettes per day: 30.0 Years smoked: 12 Smoking pack-years: 18.00 Smoking status: Current every day smoker Tobacco type: cigarettes and e-cigarettes/vaping Second hand tobacco smoke exposure: Yes Additional smoking assessment comments: Stop smoking cigarettes 2 years ago and now vaping Alcohol intake: former Substance use: current Substance use type: marijuana Living arrangements: with family Occupation/Education: occupation Gender identity (if verbalized by the patient): Female Sexual Orientation (if Verbalized by the Patient): Straight or Heterosexual Comments At time of signature, agree with nursing past medical, surgical, social and family history. There is no relevant family history pertinent to the presenting complaint Exam Narrative: GENERAL: Nontoxic-appearing, well-nourished, and in no acute distress. HEAD: Normocephalic EYES: PERRLA, conjunctivae clear ENT: Nares clear. Mucous membranes moist. TM pearly hamilton with dull light reflex bilaterally; no tragal tenderness. Oropharynx not erythematous without lesions. Tonsils not enlarged and without exudate, no drooling, no hoarseness, no trismus, uvula midline. NECK: Supple. No lymphadenopathy CHEST: Clear to auscultation, breath sounds equal. No wheezing, rhonchi, rales, or stridor. No respiratory distress, speaks in full sentences. HEART: Regular rate and rhythm. No murmur heard. SKIN: Warm, dry, no rash. NEURO: Alert and oriented x3. PSYCH: Normal mood and affect Course Course Emergency Course: Patient is aware of diagnosis, understands and agrees to treatment plan. Anticipatory guidance given. Patient agrees to follow-up as directed and is aware of reasons to seek care at the emergency department. Portions of this record may have been created with voice recognition software Level of Care: Express Care Visit Vital Signs Vital signs: Vital Signs Temperature 97.9 F 05/26/24 12:26 Pulse Rate 76 05/26/24 12:26 Respiratory Rate 24 H 05/26/24 12:26 Blood Pressure 117/69 05/26/24 12:26 Pulse Oximetry 100 05/26/24 12:26 Oxygen Delivery Room Air 05/26/24 12:26 Temperature 97.9 F 05/26/24 12:26 Pulse Rate 76 05/26/24 12:26 Respiratory Rate 24 H 05/26/24 12:26 Blood Pressure 117/69 05/26/24 12:26 Pulse Oximetry 100 05/26/24 12:26 Oxygen Delivery Room Air 05/26/24 12:26 Reviewed. MDM - URI/Sore Throat MDM Narrative Medical decision making narrative: Differential diagnosis considered: Gonzalez virus, strep pharyngitis, allergic rhinitis, upper respiratory tract infection, sinusitis, rhinosinusitis, nasopharyngitis. viral pharyngitis, otitis media, otitis externa, pneumonia, bronchitis, viral cough syndrome, viral syndrome, and influenza. Exam findings show no acute concerns or changes; patient is non-toxic appearing and is in no distress. Patient is appropriate for outpatient treatment and follow-up. Lab Data Attestation: I reviewed the patient's lab results. Critical Care Time Critical Care Time Critical Care Time: No Discharge Plan Discharge Clinical Impression: Upper respiratory infection Patient Disposition: Home, Self-Care Condition: Stable Instructions: Upper Respiratory Infection (ED) Additional Instructions: Your rapid COVID and flu tests are negative Your rapid strep swab was negative today at [facility]. A throat culture will be sent to the laboratory for further testing. If the test is positive, you will receive a phone call within 48 hours and an appropriate antibiotic will be initiated at that time. Your symptoms are likely due to a viral illness, which is not treated with antibiotics. Viral symptoms can be present for up to a few weeks. -Alternate Tylenol and Motrin per package directions for fever or pain. -Antihistamine medication such as Benadryl at night and Zyrtec during the day can help improve symptoms. -Eat and drink things that are easy to swallow, like tea or soup, or popsicles to suck on. -Oral rinses such as: Salt water gargles and/or may use topical anesthetic (eg. Chloraseptic spray) or lozenges to relieve dryness or throat pain). -Frequent hand washing or hand vending machine host/hostess is one of the best ways to prevent spread of infection. -Follow up with primary care provider in 2-3 days if condition is not improving; or seek ER visit if you have trouble breathing, cannot drink enough fluids, have muffled voice, difficulty opening your mouth, or severe swelling. Patient Language: Italian Prescriptions: New pseudoephedrine HCl [12 Hour Decongestant] 120 mg tablet extended release 120 mg PO Q12H PRN (Reason: nasal congestion) Qty: 20 0RF dextromethorphan-guaifenesin [Mucinex DM] 60-1,200 mg tablet extended release 12 hr 1 tablet PO Q12H Qty: 12 0RF Follow-up/Referrals: PHYSICIAN NOT ON STAFF,NONSTAFF [Primary Care Provider] - Stand Alone Forms: Work/School Release IP Time of Disposition: 13:21
[2024-05-26 13:21] LABS: EDCOVIDSCREEN Negative (Negative); EDINFLUASCREEN Negative (Negative); EDINFLUBSCREEN Negative (Negative); EDSTREPNEGPOS1 Negative (Negative)
== END 2024-05-26 13:25 | disposition home or self-care (01) ==
PROVIDERS: Emergency Provider Nurse Practitioner
DX: J06.9 Acute upper respiratory infection, unspecified (principal); Z20.822 Contact with and (suspected) exposure to COVID-19; F17.290 Nicotine dependence, other tobacco product, uncomplicated; N26.1 Atrophy of kidney (terminal); K21.9 Gastro-esophageal reflux disease without esophagitis
CPT/HCPCS: 87081; 87426; 87804; 87880; 99213; G0463

== ENCOUNTER 2024-07-09 19:39 | Emergency (ER) | payer OTHER, SELFPAY ==
--- OUTSIDE RECORDS SUMMARY | 2024-07-09 19:41 | XMS_ITS | Clinical Summary ---
Author Organization [facility] Address [address] [place] [address] Care Team Providers Care Transit Operations Supervisor Name Role Phone Patricia Craig APRN-[facility] Primary Care Provider + Source Comments [facility],non-owned Affiliates and Associated Physician Practices is amultiple site organization consisting of ambulatory clinics and hospital sitesin [place], [place], [place] and [place]. This disclosure is being madepursuant to the Care Everywhere program and may not contain all information available regarding this patient. Last updated 17.[facility] Allergies No known active allergies Medications * Be aware that medications may not be up to date on this document. Alwaysverify current medications with the patient. cephalexin (Keflex) 500 MG capsule Take 1 [...] tablet by mouth as directed 05/29/2022 Active oxyCODONE-aceta minophen (Percocet) 7.5-325 MG tablet Take 1 (one) tablet by mouth as needed 05/31/2022 Active Immunizations Immunization Administration Dates Next Due DTP 10/24/1997, 5,08/11/1993,02/09/1993,12/01/18 [...] drink = 0.6 oz pur e alcohol) Comments Unknown Sex and Gender Information Value Date Recorded Sex Assigned at Not on file Legal Sex Female 11:00 AM CDT Gender Identity Not on file Sexual Orientation Not on file Last Filed Vital Signs Vital Sign Reading Time Taken Comments Blood Pressure 110/70 04/04/2022 2:05 PM SENIOR MAINFRAME PROGRAMMER ANALYST Pulse 58 04/04/2022 2:05 PM SENIOR MAINFRAME PROGRAMMER ANALYST Temperature - - Respiratory Rate - - Oxygen Saturation - - Inhaled Oxygen Concentration - - Weight 46.3 kg (102 lb) 04/04/2022 2:05 PM SENIOR MAINFRAME PROGRAMMER ANALYST Height 147.3 cm (4' 10 ) 04/04/2022 2:05 PM SENIOR MAINFRAME PROGRAMMER ANALYST Body Mass Index 21.32 04/04/2022 2:05 PM SENIOR MAINFRAME PROGRAMMER ANALYST Plan of Treatment Health Maintenance Due Date Last Done Comments PAP SMEAR 1992 HEPATITIS B VACCINE (4 of 4 - 4-dose series) 02/22/1995 01/24/1995, 12/28/1994, 07/19/1994 HIV SCREENING 08/28/2007 HEPATITIS C SCREENING 08/23/2010 COVID-19 VACCINE (1 - 2024-25 season) 2023 DEPRESSION SCREENING 03/27/2024 INFLUENZA VACCINE (Season Ended) 2024 12/10/1993, 08/11/1993, 02/09/1993, Additional history exists DTAP/TDAP/TD VACCINES (8 - Td or Tdap) 07/07/2026 07/07/2016, 11/28/2014, 10/24/1997, Additional history exists ZOSTER VACCINE (1 of 2) 2042 HIB VACCINE Aged Out No longer eligi ble based on patient's age to complete this topic HPV VACCINE Aged Out No longer eligi ble based on patient's age to complete this topic MENINGOCOCCAL (Group B) VACCINE SHARED DECISION-MAKING Aged Out No longer eligible based on patient's age to complete this topic MENINGOCOCCAL GROUPS A/C/Y/W VACCINE Aged Out No longer eligible based on patient's age to complete this topic PNEUMOCOCCAL VACCINE Aged Out No long er eligible based on patient's age to complete this topic Insurance [facility] Care Teams Transit Operations Supervisor Relationship Specialty Start Date End Date Patricia Craig, PORT TRAFFIC MANAGER-SURGICAL DENTAL ASSISTANT [address] [place] [address] PCP - General 03/15/22
--- OUTSIDE RECORDS SUMMARY | 2024-07-09 19:41 | XMS_ITS | Clinical Summary ---
Author Organization [facility] Address [address] [facility] [place] [address] Phone Care Team Providers Care International Student Counselor Name Role Phone Sherwin Su APRN, POLISHER DIAL Primary Care Pr ovider Jesse Barnard APRN, POLISHER DIAL Unavailable [phone] Katy Esteban MD Unavailable [phone] Zaira Hanley APRN, [facility] Unavailable + [phone] Yolanda Ashby APRN, POLISHER DIAL Unavailable Eleazar Allred MD Unavailable Allergies Active [...] Active Problems Problem Noted Date Diagnosed Date Yeast infection 05/15/2024 Bladder infection 05/15/2024 History of pyeloplasty 05/15/2024 Left flank pain 05/15/2024 Anxiety 11/21/2022 Seizure-like activity 10/28/2022 Chronic sore throat 02/28/2022 Dysthymia 08/22/2019 08/01/2016 Overview (08/01/2016): 37&6/7 weeks Small for gestational age (SGA) 08/01/2016 Overview (08/01/2016): Mother 1ppd smoker Estimated wgt without smoking 2600grams and NOT Sga Encounters Date Type Department Care Team Description 06/04/2024 Telephone [facility] [address] [place] [phone] Sherwin Su APRN, POLISHER DIAL Results 06/03/2024 3:23 PM CDT - 06/03/2024 5:59 PM CDT Emergency [facility] Emergency [address] [place] [address] Joselyn Peter APRN, POLISHER DIAL Discharge Disposition: Left Against Medical Advice 06/03/2024 Travel 06/03/2024 Nurse Triage [facility] [address] [place] [phone] Sherwin Su APRN, LAURA Advice Only; Anxiety 05/15/2024 10:30 AM OPERATIONS LEADER [facility] [address] [place] [address] Truong Triana MD Yeast infection (Primary Dx); Bladder infection; Left flank pain; History of pyeloplasty 05/15/2024 [facility]phone [facility] [address] [place] [phone] Truong Triana MD 05/14/2024 Travel from Last 3 Months Immunizations Immunization Administration Dates Next Due DTP [...] Diabetes Other Heart Attack Paternal Grandfather Jose White Sr Heart Attack Paternal Grandmother Sonia Vasques No Known Problems Sister Relation Name Status Comments Brother 1 Alive Brother 2 Dada Buckley Alive Father Alive Maternal Grandfather Maternal Grandmother Annel Gamez Alive Mother Antonina White Nephew Alive Other Paternal Grandfather Jose White Sr Paternal Grandmother Sonia Vasques Alive Sister Alive Social History Tobacco Use Types Packs/Day Years Used Date Smoking Tobacco: Former Cigarettes 1 2017 Smokeless Tobacco: Never Tobacco Cessation:Counseling Given: Not Answered Alcohol Use Standard Drinks/Week Comments No 0 (1 standard drink = 0.6 oz pur e alcohol) [facility] Utilities Answer Date Recorded In the past 12 months has [employer], gas, oil, or water [employer] threatened to shut off services in your home? No 05/14/2024 Social Connection and Isolation Panel [NHANES] A nswer Date Recorded In a typical week, how many times do you talk on the phone with family, friends, or neighbors? Once a week 02/18/20 25 How often do you get togethe r with friends or relatives? Twice a week 05/14/2024 How often do you attend chur ch or voodoo services? Never 05/14/2024 Do you belong to any clubs o r organizations such as pentecostalism groups, unions, fraternal or athletic groups, or school groups? No 05/14/2024 How often do you attend meet ings of the clubs or organizations you belong to? Never 05/14/2024 Are you , , di vorced, , never , or living with a partner? Living with partner 05/14/2024 AUDIT-C Answer Date Recorded Q1: How often do you have a drink containing alcohol? Never 05/14/2024 Q2: How many drinks containi ng alcohol do you have on a typical day when you are drinking? Patient does not drink Q3: How often do you have si x or more drinks on one occasion? Never 05/14/2024 Overall Financial Resource Strain (CARDIA) Answe r Date Recorded How hard is it for you to pa y for the very basics like food, housing, medical care, and heating? Patient declined 05/14/2024 PHQ-2 Answer Date Recorded Total Score - Questions 1-9 19 08/25 [facility] - Occupational Stress Questionnaire Answer Date Recorded Do you feel stress - tense, restless, nervous, or anxious, or unable to sleep at night because your mind is troubled all the time - these days? Very much 05/14/2024 Exercise Vital Sign Answer Date Recorde d On average, how many days pe r week do you engage in moderate to strenuous exercise (like a brisk walk)? 5 days 05/14/2024 On average, how many minutes do you engage in exercise at this level? 150+ min 05/14/2024 Hunger Vital Sign Answer Date Recorded Within [...] from medical appointments or from getting medications? No 04/27 In the past 12 months, has l ack of transportation kept you from meetings, work, or from getting things needed for daily living? No 05/14/2024 Housing Stability Vital Sign Answer Tien e [...] place to sleep or slept in a retirement (including now)? No 05/14/2023 Housing Stability Vital Sign Answer Tien e Recorded In the last 12 months, was t here a time when you were not able to pay the mortgage or rent on time? Patient declined 05/14/19 25 In the past 12 months, how m any times have you moved where you were living? 0 05/14/2024 At any time in the past 12 m [facility], were you homeless or living in a retirement (including now)? No 05/14/2024 Education Answer Date Recorded What is the [...] Sign Reading Time Taken Comments Blood Pressure 110/61 06/03/2024 4:00 PM CDT Pulse 80 06/03/2024 4:00 PM CDT Temperature 36.6 C (97.8 F) 06/03/2024 1:22 PM CDT Respiratory Rate 17 06/03/2024 3:38 PM CDT Oxygen Saturation 100% 06/03/2024 4:00 PM CDT Inhaled Oxygen Concentration - - Weight 43.1 kg (95 lb) 06/03/2024 1:22 PM CDT Height 147.3 cm (4' 10 ) 06/03/2024 1:22 PM CDT Body Mass Index 19.86 06/03/2024 1:22 PM CDT Plan of Treatment Health Maintenance Due Date Last Done Comments Hepatitis B Immunization (4 of 4 - 4-dose series) 02/22/1995 01/24/1995, 12/28/1994, 07/19/1994 SARS-COV-2 Immunization ( - season) 2023 Influenza Immunization (Season Ended) 2024 Pap Smear 01/24/2026 01/24/2023 DTaP/Tdap/Td Immunization (9 [...] [facility] On track(12/10/19 23 8:30 AM CDT) Yes Clotilde Fay, VENUE MANAGER Procedures Procedure Name Priority Date/Time Associated Diagnosis Comments TROPONIN I, HIGH SENSITIVITY (HSTRP) STAT 06/03/2024 3:50 PM CDT URINALYSIS REFLEX IF INDICATED BY ABNORMAL RESULTS STAT 06/03/2024 3:26 PM CDT POCT URINE HCG () STAT 06/03/2024 3:24 PM CDT GOLD TOP TUBE STAT 06/03/2024 1:25 PM CDT BLUE TOP TUBE STAT 06/03/2024 1:25 PM CDT CBC WITH AUTO DIFFERENTIAL STAT 06/03/2024 1:25 PM CDT TROPONIN I, HIGH SENSITIVITY (HSTRP) STAT 06/03/2024 1:25 PM CDT EXTRA TUBES STAT 06/03/2024 1:25 PM CDT CMP (COMPREHENSIVE METABOLIC PANEL) STAT 06/03/2024 1:25 PM CDT COMPLETE BLOOD COUNT (CBC) WITH DIFF STAT 06/03/2024 1:25 PM CDT RSV,SARS-COV-2,INFLU IRVIN A&B BY PCR STAT 06/03/2024 1:25 PM CDT EKG 12 LEAD STAT 06/03/2024 1:24 PM CDT EKG SCAN 06/03/2024 12:00 AM CDT HUMAN PAPILLOMA VIRUS (HPV) Routine 01/24/2023 10:04 AM CDT Encounter for well woman exam with routine gynecological exam PATHOLOGY CYTOLOGY INVESTOR RELATIONS MANAGER Routine 01/24/2023 10:04 AM CDT Encounter for well woman exam with routine gynecological exam from Last 3 Months or Most Recently Relevant to Health Maintenance Results * TROPONIN I, HIGH SENSITIVITY (HSTRP) (06/03/2024 3:50 PM CDT) Only the most recent of2 resultswithin the time period is included. TROPONIN I, HIGH SENSITIVITY- [place] <3 <=14 ng/L 06/03/2024 4:21 PM CDT [facility] Comment: High-sensitivity troponin I results are reported in ng/L making the result appear to be 1,000 times higher than the contemporary troponin I value which is reported in ng/ml. Results from [facility]. Blood Venipuncture / Unknown 06/03/2024 3:50 PM CDT 06/03/2024 3:56 PM CDT us Joselyn Peter DIRECTOR OF SPORTS PERFORMANCE, POLISHER DIAL CHEMISTRY ORDERABL ES Final Result [facility] [address] [place] [address] * (ABNORMAL) URINALYSIS REFLEX IF INDICATED BY ABNORMAL RESULTS (06/03/2024 3:26 PM CDT) SPECIFIC GRAVITY 1.020 1.003 - 1.030 06/03/2024 4:37 PM CDT [facility] URINE PH 5.0 5.0 - 9.0 06/03/2024 4:37 PM CDT [facility] WBC ESTERASE Negative Negative 06/03/2024 4:37 PM CDT [facility] NITRITE Negative Negative 06/03/2024 4:37 PM CDT [facility] PROTEIN, RANDOM URINE 30 mg/dL(A) Negative 06/03/2024 4:37 PM CDT [facility] URINE GLUCOSE, QUAL Negative Negative 06/03/2024 4:37 PM CDT [facility] URINE KETONES Negative Negative 06/03/2024 4:37 PM CDT [facility] UROBILINOGEN Normal Normal mg/dL 06/03/2024 4:37 PM CDT [facility] URINE BLOOD Negative Negative lenny/ul 06/03/2024 4:37 PM CDT [facility] URINALYSIS COLOR Yellow 06/04/19 4:37 PM CDT [facility] URINALYSIS CLARITY Clear 06/03/2024 4:37 PM CDT [facility] WBC (Urine) 0-5 Negative, 0-5 /hpf 06/03/2024 4:37 PM CDT [facility] URINE RBC'S 0-2 Negative, 0-2 /hpf 06/03/2024 4:37 PM CDT [facility] EPITHELIAL CELLS Moderate amount /lpf 06/03/2024 4:37 PM CDT [facility] BACTERIA, URINE Few(A) Negative /hpf 06/03/2024 4:37 PM CDT [facility] Urine URINE SPECIMEN / Unknown Non-Phlebotomy Collection / Unknown 06/03/2024 3:26 PM CDT 06/03/2024 3:33 PM CDT us Niko James MD URINE ORDERABLES Final Result Performing Organization Address City/[facility]/ZIP Co de Phone Number [facility] [address] [place] [address] * POCT Urine HCG () (06/03/2024 3:24 PM CDT) POC URINE Negative [facility] POC URINE CONTROL Trust Evaluation Supervisor Pass [facility] Urine 06/03/2024 3:24 PM CDT us Niko James MD POINT OF CARE TESTING (MANUAL) F inal Result Performing Organization Address City/[facility] Co de Phone Number [facility] [address] [place] [address] * RSV,SARS-COV-2,INFLUENZA A&B BY PCR (06/03/2024 1:25 PM CDT) FLU A Negative Negative, Error 06/03/2024 2:20 PM CDT [facility] FLU B Negative Negative 06/03/2024 2:20 PM CDT [facility] RESP SYNC VIRUS Negative Negative 2:20 PM CDT [facility] SARSCOV2 NOT DETECTED (Reference Range for this test is Not Detected) 06/03/2024 2:20 PM CDT [facility] Comment:This test was perfor med by a Reverse Security Guard Supervisor PCR Method. Swab NASOPHARYNGEAL SWAB / Unknown Non-Phlebotomy Collection / Unknown 06/03/2024 1:25 PM CDT 06/03/2024 1:39 PM CDT us Niko James MD MICROBIOLOGY - GENERAL ORDERABLE S Final Result Performing Organization Address City/[facility]/ZIP Co de Phone Number [facility] [address] [place] [address] * Gold Top Tube (06/03/2024 1:25 PM CDT) Blood No Phlebotomy Charged / Unknown 06/03/2024 1:25 PM CDT 06/03/2024 2:50 PM CDT Sherwin Su APRN, POLISHER DIAL CHEMISTRY ORDERA BLES Final Result Performing Organization Address [facility]/ZIP Co de Phone Number [facility] [address] [place] [address] * Blue Top Tube (06/03/2024 1:25 PM CDT) Blood No Phlebotomy Charged / Unknown 06/03/2024 1:25 PM CDT 06/03/2024 2:50 PM CDT Sherwin Su APRN, LAURA HEMATOLOGY ORDER ASHANTI Final Result Performing Organization Address [facility] Co de Phone Number [facility] [address] [place] [address] * (ABNORMAL) CBC with Auto Differential (06/03/2024 1:25 PM CDT) WBC 9.08 4.00 - 12.00 10(3)/mcL 06/03/2024 1:44 PM CDT [facility] RBC 3.78(L) 3.80 - 5.30 10(6)/mcL 06/03/2024 1:44 PM CDT [facility] HEMOGLOBIN (HGB) 11.3(L) 12.0 - 15.8 g/dL 06/03/2024 1:44 PM CDT [facility] HEMATOCRIT (HCT) 33.1(L) 36.0 - 47.0 % 06/03/2024 1:44 PM CDT [facility] MCV 87.6 82.0 - 96.0 fL 06/03/2024 1:44 PM CDT [facility] MCH 29.9 26.0 - 34.0 pg 06/03/2024 1:44 PM CDT [facility] MCHC 34.1 31.0 - 36.0 g/dL 06/03/2024 1:44 PM CDT [facility] PLATELET COUNT 360 140 - 440 10(3)/mcL 06/03/2024 1:44 PM CDT [facility] RDW 13.0 11.8 - 15.5 % 06/03/2024 1:44 PM CDT [facility] MPV 9.2(L) 9.7 - 12.4 fL 06/03/2024 1:44 PM CDT [facility] NEUTROPHILS 65.4 47.0 - 73.0 % 06/03/2024 1:44 PM CDT [facility] LYMPHOCYTES 25.3 18.0 - 42.0 % 06/03/2024 1:44 PM CDT [facility] MONOCYTES 6.9 4.0 - 12.0 % 06/03/2024 1:44 PM CDT [facility] EOSINOPHILS 1.5 0.0 - 5.0 % 06/03/2024 1:44 PM CDT [facility] BASOPHILS 0.9 0.0 - 1.0 % 06/03/2024 1:44 PM CDT [facility] ABSOLUTE NEUTROPHILS 5.93 1.60 - 7.70 10(3)/mcL 06/03/2024 1:44 PM CDT [facility] ABSOLUTE LYMPHOCYTES 2.30 1.30 - 3.20 10(3)/mcL 06/03/2024 1:44 PM CDT [facility] ABSOLUTE MONOCYTES 0.63 0.20 - 1.00 10(3)/mcL 06/03/2024 1:44 PM CDT [facility] ABSOLUTE EOSINOPHIL 0.14 0.00 - 0.40 10(3)/mcL 06/03/2024 1:44 PM CDT [facility] ABSOLUTE BASOPHILS 0.08 0.00 - 0.10 10(3)/mcL 06/03/2024 1:44 PM CDT [facility] NRBC PER 100 WBC 0 06/04/19 1:44 PM CDT [facility] Blood Venipuncture / Unknown 06/03/2024 1:25 PM CDT 06/03/2024 1:40 PM CDT us Niko James MD HEMATOLOGY ORDERABLES Final Resu lt [facility] [address] [place] [address] * (ABNORMAL) CMP (Comprehensive Metabolic Panel) (06/03/2024 1:25 PM CDT) SODIUM 141 136 - 145 mmol/L 06/03/2024 2:00 PM CDT [facility] POTASSIUM 3.8 3.5 - 5.1 mmol/L 06/03/2024 2:00 PM CDT [facility] CHLORIDE 112(H) 98 - 107 mmol/L 06/03/2024 2:00 PM CDT [facility] CO2, VENOUS 20(L) 22 - 30 mmol/L 06/03/2024 2:00 PM CDT [facility] ANION GAP 12.8 <18.0 mmol/L 06/03/2024 2:00 PM CDT [facility] GLUCOSE 110(H) 70 - 99 mg/dL 06/03/2024 2:00 PM CDT [facility] BUN 12 5 - 18 mg/dL 06/03/2024 2:00 PM CDT [facility] CREATININE, BLOOD 0.81 0.60 - 1.00 mg/dL 06/03/2024 2:00 PM CDT [facility] BUN/CREATININE RATIO 15 12 - 20 ratio 06/03/2024 2:00 PM CDT [facility] TOTAL PROTEIN 7.0 6.0 - 8.0 g/dL 06/03/2024 2:00 PM CDT [facility] ALBUMIN 4.3 3.5 - 5.0 g/dL 06/03/2024 2:00 PM CDT [facility] A/G RATIO 1.6 1.0 - 2.2 06/03/2024 2:00 PM CDT [facility] CALCIUM 8.7 8.7 - 10.5 mg/dL 06/03/2024 2:00 PM CDT [facility] T BILI 0.7 0.2 - 1.2 mg/dL 06/03/2024 2:00 PM CDT [facility] SGOT (AST) 15 <43 U/L 06/03/2024 2:00 PM CDT [facility] SGPT (ALT) 7 <56 U/L 06/03/2024 2:00 PM CDT [facility] ALKALINE PHOSPHATASE 47 40 - 150 U/L 06/03/2024 2:00 PM CDT [facility] GFR, ESTIMATED >60 >=60 06/03/2024 2:00 PM CDT [facility] Comment: Creatinine Clearance is the preferred criteria for selecting drug dose adjustments in renally impaired patients. The GFR is provided as additional pertinent clinical information. GFR is reported in mL/min/1.73 sq m. Calculation based on the Chronic Kidney Disease Epidemiology Collaboration (CKD- EPI) equation refit without adjustment for race. GFR, EST. >60 >=60 025 2:00 PM CDT [facility] GFR, EST. NONAFRICAN >60 >=60 06/03/2024 2:00 PM CDT [facility] Blood Venipuncture / Unknown 06/03/2024 1:25 PM CDT 06/03/2024 1:40 PM CDT us Niko James MD CHEMISTRY ORDERABLES Final Resul t [facility] [address] [place] [address] * EKG 12 LEAD (06/03/2024 1:24 PM CDT) Ventricular Rate 81 BPM EXTERNAL EKG Atrial Rate 81 BPM EXTERNAL EKG P-R Interval 146 ms EXTERNAL EKG QRS Duration 72 ms EXTERNAL EKG Q-T Duration 362 ms EXTERNAL EKG QTC CALCULATION 420 ms EXTERNAL EKG P Lynn 83 degrees EXTERNAL EKG R Lynn 73 degrees EXTERNAL EKG T Lynn 71 degrees EXTERNAL EKG 06/03/2024 1:24 PM CDT Impressions EXTERNAL EKG - 06/04/2024 8:20 PM CDT Normal sinus rhythm Normal ECG No previous ECGs available Confirmed by ORIN YODER ([id number]) on 06/04/2024 8:20:34 PM Narrative Procedure Note Orin Yoder MD - 06/04/2024 IMPRESSION: Normal sinus rhythm Normal ECG No previous ECGs available Confirmed by ORIN YODER ([id number]) on 06/04/2024 8:20:34 PM Niko James MD IMG ECG ORDERABLES Final Result EXTERNAL EKG * EKG SCAN (06/03/2024 12:00 AM CDT) 06/03/2024 us Provider Scan IMG ECG ORDERABLES Final Result RESULTING AGENCY * PATHOLOGY CYTOLOGY INVESTOR RELATIONS MANAGER (01/24/2023 10:04 AM CDT) SPECIMEN ADEQUACY Satisfactory for evaluation. Endocervical/transf ormation zone component is present. 02/08/2023 3:14 PM OPERATIONS LEADER [facility] DESCRIPTIVE DIAGNOSIS NEGATIVE FOR INTRAEPITHELIAL LESIONS OR MALIGNANCY. 02/08/2023 3:14 PM OPERATIONS LEADER [facility] at 1514 OPERATIONS LEADER Automated Examination Analysis of this sample has been assisted by an automated imaging and review system ([employer] System, [employer], [place], [place]). This case is further evaluated and finalized by a quenching machine operator and/or pathologist. 02/08/2023 3:14 PM OPERATIONS LEADER [facility] Disclaimer The PAP smear is a [...] 65 unless clinically indicated. 02/08/2023 3:14 PM OPERATIONS LEADER [facility] Case Report Gynecologic Cytology Report Case: [id number] Authorizing Provider: Delaney Gardner APRN, CNP Collected: 01/24/2023 10:04 AM Ordering Location: [facility] Received: 01/24/2023 10:04 AM [facility] First Screen: Roma Aguirre Rescreen: Daisy Vargas Specimen: TP Screen, Cervix/Endocervix 02/08/2023 3:14 PM OPERATIONS LEADER [facility] Other CERVIX UTERI STRUCTURE / Unknown Non-Phlebotomy Collection / Unknown 01/24/2023 10:04 AM CDT 01/24/2023 10:04 AM CDT us Delaney Gardner APRN, CNP PATHOLOGY/CYTOLOGY ORDER ASHANTI Final Result [facility] [address] [place] [address], * HUMAN PAPILLOMA VIRUS (HPV) (01/24/2023 10:04 AM CDT) HPV OTHER HIGH RISK TYPES, PCR NEGATIVE NEGATIVE 01/25/2023 1:48 PM CDT [facility] Comment: The following Other High Risk [...] 16 NEGATIVE NEGATIVE 01/25/2023 1:48 PM CDT [facility] Comment: A negative high-risk HPV result [...] 18 NEGATIVE NEGATIVE 01/25/2023 1:48 PM CDT [facility] Comment: A negative high-risk HPV result [...] OR DIAGNOSTIC SCREENING 01/25/2023 1:48 PM CDT [facility] Other Non-Phlebotomy Collection / Unknown 01/24/2023 10:04 AM CDT 01/24/2023 10:04 AM CDT [facility] - 01/25/2023 1:48 PM CDT Performed by Real-Time Polymerase Chain Reaction (PCR) on the [employer] Xander 4800. This assay has been validated for use with post-aliquot samples from the [id number] processor. us Delaney Gardner DIRECTOR OF SPORTS PERFORMANCE, POLISHER DIAL LAB SEND OUTS Final Re sult [facility] [address] [place] [address], [facility] [address] [place] [address] from Last 3 Months or Most Recently Relevant to Health Maintenance Insurance MEDICAID [place] Advance Directives * Full Code (Latest Code [...] measures to stabilize the patient. Care Teams International Student Counselor Relationship Specialty Start Date End Date Georges Sherwinisidra Costello, DIRECTOR OF SPORTS PERFORMANCE, POLISHER DIAL [address] [facility] [address] [place] [address] PCP - General Advanced Practice Nurse 09/30/22 Jesse Barnard, DIRECTOR OF SPORTS PERFORMANCE, POLISHER DIAL [address] [place] [address] Nurse Practitioner Advanced Practice Nurse 01/30/23 Katy Esteban MD [address] [facility] [address] [place] [address] Consulting Physician Urology 03/08/22 Zaira Hanley APRN, INDUSTRIAL REGISTERED NURSE [address] [place] [address] Nurse Practitioner Advanced Practice Nurse 10/28/22 Yolanda Ashby DIRECTOR OF SPORTS PERFORMANCE, POLISHER DIAL [address] [place] [address] Nurse Practitioner Advanced Practice Nurse 11/16/22 Eleazar Allred MD [address] [facility] [address] [place] [address] Consulting Physician Urology 01/24/24
--- OUTSIDE RECORDS SUMMARY | 2024-07-09 19:41 | XMS_ITS | Clinical Summary ---
Author Organization [address] lt Address [address] [facility] [place] [address] Care Team Providers Care Surface Supply Breathing Apparatus Name Role Phone Sherwin Su NP Primary [...] Sga 08/01/2016 Overview (04/06/2022): 37&6/7 weeks Immunizations Immunization Administration Dates Next Due Influenza, Unspecified 03/27/2019(Deferr [...] on file Legal Sex Female 11:29 PM FLUTE TEACHER Gender Identity Not on file Sexual Orientation Not on file Obstetrics History Last Filed Vital Signs Vital Sign Reading Time Taken Comments Blood Pressure 123/70 01/23/2023 1:41 PM CDT Pulse 68 01/23/2023 1:41 PM CDT Temperature 36.4 C (97.5 F) 01/23/2023 1:41 PM CDT Respiratory Rate 18 05/29/2022 7:42 AM FLUTE TEACHER Oxygen Saturation 99% 01/23/2023 1:41 PM CDT Inhaled Oxygen Concentration - - Weight 44.7 kg (98 lb 8 oz) 01/23/2023 1:41 PM C DT Height 147.3 cm (4' 9.99 ) 01/23/2023 1:41 PM CD T Body Mass Index 20.59 01/23/2023 1:41 PM CDT Plan of Treatment Health Maintenance Due Date Last Done Comments Cervical Cancer Screening 1992 Hepatitis C Screening 1992 Regular Well Visit/Exam 18-64 2010 Pneumococcal vaccine <65 (1 of 2 - PCV) 08/28/2011 Depression Screening 08/21/2020 08/22/2019, 08/22/19 20 Influenza Vaccine (#1) 2023 4, 08/11/1993, 02/09/1993, Additional history exists DTaP/Tdap/Td Vaccine (8 - Td or Tdap) 07/07/2026 07/07/2016, 11/28/2014, 10/24/1997, Additional history exists Hepatitis B Screening Completed 01/24/1995 , 12/28/1994, 07/19/1994 HPV Vaccines Aged Out No longer eligi ble based on patient's age to complete this topic Varicella Vaccines Discontinued Medical Devices Explanted Type Area V Belt Skiver Device Identifier Shelf Expiration Date Model / Serial / Lot Tilt Universa 5fr 22cm Radiopaque Positioner Monofilament Tether [id number] - [id number] Implanted:Qty: 1 on 05/27/2022 by Cuba Perez DO at [facility] Explanted:Qty: 1 on 06/29/2022 by Cuba Perez DO Tilt 10/07/2023 [id number] / / [id number] Insurance [facility] Member Subscriber Plan / Payer ( fective 2018-Present) Name:Florentin White Relation to Subscriber:Self Name:Florentin White Payer ID:[id number] (NAIC) Type:MEDICAID RISK OTHER Address: [place] [address] Advance Directives For more information, please contact: [phone] * Full Code (Latest Code Status on File) Date Activated Date Inactivated Comments 05/27/2022 6:34 PM 05/29/2022 7:47 PM Care Teams Surface Supply Breathing Apparatus Relationship Specialty Start Date End Date Sherwin Su NP [address] [address] PCP - General Nurse Practitioner 04/03/23
--- OUTSIDE RECORDS SUMMARY | 2024-07-09 19:41 | XMS_ITS ---
Author Organization [facility] Address [address] [place] [address] Phone Care Team Providers Care Kardex Clerk Name Role Phone Sherwin Su APRN, FURNITURE AND BEDDING INSPECTOR Primary Care Pr ovider Jesse Barnard APRN, FURNITURE AND BEDDING INSPECTOR Unavailable [phone] Katy Esteban MD Unavailable [phone] Zaira Hanley APRN, IDENTIFICATION PRINTING MACHINE SETTER Unavailable + [phone] Yolanda Ashby APRN, FURNITURE AND BEDDING INSPECTOR Unavailable Elaezar Allred MD Unavailable [facility] Status:Enrolled (Active) Start date:04/24/2024 Enrollment date:04/24/2024 Related social drivers of health:Social Connections, Tobacco Use, Financial Resource Strain, Depression, Stress, Food Insecurity, Transportation Needs, Housing Stability, Utilities Continued Care and Services Coordination
--- OUTSIDE RECORDS SUMMARY | 2024-07-09 19:41 | XMS_ITS | Referral Summary ---
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 Gender Identity Not on file Sexual Orientation Not on file Last Filed Vital Signs Vital Sign Reading Time Taken Comments Blood Pressure 123/70 01/23/2023 1:41 PM CDT Pulse 68 01/23/2023 1:41 PM CDT Temperature 36.4 C (97.5 F) 01/23/2023 1:41 PM CDT Respiratory Rate 18 05/29/2022 7:42 AM PSYCHOLOGY INSTRUCTOR Oxygen Saturation 99% 01/23/2023 1:41 PM CDT Inhaled Oxygen Concentration - - Weight 44.7 kg (98 lb 8 oz) 01/23/2023 1:41 PM C DT Height 147.3 cm (4' 9.99 ) 01/23/2023 1:41 PM CD T Body Mass Index 20.59 01/23/2023 1:41 PM CDT Plan of Treatment Not on file Medical Devices Explanted Type Area Snout Puller Device Identifier Shelf Expiration Date Model / Serial / Lot Sequella Universa 5fr 22cm Radiopaque Positioner Monofilament Tether [id number] - [id number] Implanted:Qty: 1 on 05/27/2022 by Cuba Perez DO at [facility] Explanted:Qty: 1 on 06/29/2022 by Cuba Perez DO [employer] 10/07/2023 [id number] / / [id number] Insurance [facility] Advance Directives For more information, please contact: [phone] * Full Code (Latest Code Status on File) Date Activated Date Inactivated Comments 05/27/2022 6:34 PM 05/29/2022 7:47 PM Care Teams Automatic Profile Sander Operator Relationship Specialty Start Date End Date Sherwin Su NP [address] [place] [address] PCP - General Nurse Practitioner 04/03/23
[2024-07-09 19:42] VITALS: BP 127/75; PULSE 87; RESP 20; TEMP 36.9; O2SAT 99
--- NOTE | 2024-07-09 20:03 | ED_ITS ---
HPI - URI/Sore Throat General Chief Complaint: Upper Respiratory Infection Stated Complaint: sore throat/bello/sneezing/ Time Seen by Provider: 07/09/24 20:00 Source: patient, RN notes reviewed and old records reviewed Mode of arrival: ambulatory Limitations: no limitations History of Present Illness HPI Narrative: 33 year old female who presents to [facility] care with complaints of sore throat that started last night. Patient reports that it feels like she is swallowing razor blades. She reports that she has some sinus congestion and drainage and has noted sneezing with some intermittent cough. Patient reports that she only has one functioning kidney took some Tylenol can not take any Ibuprofen.Patient reports no known fever. MD elicited complaint: cough, sore throat, rhinorrhea and nasal congestion Pertinent past history: other (strep) Onset (ago): day(s) (since last night) Pain scale (0-10): 6 Description of mucous: clear Able to tolerate fluids by mouth: Yes Treatments prior to arrival: acetaminophen Related Data Allergies Allergy/AdvReac Type Severity Reaction Status Date / Time No Known Allergies Allergy Verified 07/09/24 19:49 Review of Systems Review of Systems: CONSTITUTIONAL: Reports malaise, no chills, sweats, or fever. EYES: Denies visual changes, redness, or discharge. ENT: Reports rhinorrhea, congestion, sinus pain, no otalgia and positive sore throat. CARDIOVASCULAR: Denies chest pain, palpitations, or edema. RESPIRATORY: Reports cough.? Denies dyspnea. GASTROINTESTINAL: Denies abdominal pain, nausea, vomiting, diarrhea SKIN: Denies rash or itching. MUSCULOSKELETAL: Denies myalgia. NEUROLOGIC: Denies headache. All systems reviewed & are unremarkable except as noted in HPI and below PMFSH Past Medical History Medical History Renal atrophy, right Vaginal delivery 2 males Hiatal hernia GERD (gastroesophageal reflux disease) Anxiety and depression Loss of teeth due to extraction Surgical History Surgical History History of pyeloplasty left H/O tubal ligation Family History Family History Father Acute myocardial infarction Mother Asthma Grandparent Acute myocardial infarction Social History Social History Smoking packs per day: 1.5 Smoking cigarettes per day: 30.0 Years smoked: 12 Smoking pack-years: 18.00 Smoking status: Current every day smoker Tobacco type: cigarettes and e-cigarettes/vaping Second hand tobacco smoke exposure: Yes Additional smoking assessment comments: Stop smoking cigarettes 2 years ago and now vaping Alcohol intake: former Substance use: current Substance use type: marijuana Living arrangements: with family Occupation/Education: occupation Gender identity (if verbalized by the patient): Female Sexual Orientation (if Verbalized by the Patient): Straight or Heterosexual Comments At time of signature, agree with nursing past medical, surgical, social and family history. There is no relevant family history pertinent to the presenting complaint Exam Narrative: GENERAL: Well-appearing, well-nourished, and in no acute distress. HEAD: Normocephalic EYES: PERRLA, conjunctivae clear ENT: Nares clear, turbinates edematous and erythematous, clear discharge sinus pressure Mucous membranes moist. TM pearly hamilton with dull light reflex bila terally; no tragal tenderness. Oropharynx erythematous without lesions. Tonsils red not enlarged and without exudate, no drooling, no hoarseness, no trismus, uvula midline.post nasal drainage NECK: Supple. No lymphadenopathy CHEST: Clear to auscultation, breath sounds equal. No wheezing, rhonchi, rales, or stridor. No respiratory distress, speaks in full sentences. cough noted SAO2 99% on room air HEART: Regular rate and rhythm. No murmur heard. SKIN: Warm, dry, no rash. NEURO: Alert and oriented x3. PSYCH: Normal mood and affect Course Course Emergency Course: Patient is aware of diagnosis, understands and agrees to treatment plan.? Anticipatory guidance given.? Patient agrees to follow-up as directed and is aware of reasons to seek care at the emergency department. Portions of this record may have been created with voice recognition software Level of Care: Express Care Visit Vital Signs Vital signs: Vital Signs Temperature 36.9 C 07/09/24 19:42 Pulse Rate 87 07/09/24 19:42 Respiratory Rate 20 07/09/24 19:42 Blood Pressure 127/75 07/09/24 19:42 Pulse Oximetry 99 07/09/24 19:42 Oxygen Delivery Room Air 07/09/24 19:42 Temperature 36.9 C 07/09/24 19:42 Pulse Rate 87 07/09/24 19:42 Respiratory Rate 20 07/09/24 19:42 Blood Pressure 127/75 07/09/24 19:42 Pulse Oximetry 99 07/09/24 19:42 Oxygen Delivery Room Air 07/09/24 19:42 Reviewed MDM - URI/Sore Throat MDM Narrative Medical decision making narrative: Differential diagnosis considered: Gonzalez virus, strep pharyngitis, allergic rhinitis, upper respiratory tract infection, sinusitis, rhinosinusitis, nasopharyngitis. viral pharyngitis, otitis media, otitis externa, pneumonia, bronchitis, viral cough syndrome, viral syndrome, and influenza.? Exam findings show no acute concerns or changes; patient is non-toxic appearing and is in no distress.? Patient is appropriate for outpatient treatment and follow-up. Differential Diagnosis Differential diagnosis: Likely upper respiratory infection, sinusitis, viral infection, pharyngitis and other (strep pharyngitis) Medical Records Attestation: I reviewed the patient's medical records. Lab Data Attestation: I reviewed the patient's lab results. Lab results narrative: strep screen negative, culture sent Labs: Lab Results 07/09/24 Range/Units 20:07 POC Grp A Strep Screen Negative (Negative) reviewed Critical Care Time Critical Care Time Critical Care Time: No Discharge Plan Discharge Clinical Impression: Sore throat Upper respiratory infection Qualifiers: URI type: unspecified URI Qualified Code(s): J06.9 - Acute upper respiratory infection, unspecified Patient Disposition: Home Condition: Stable Instructions: Antibiotic Form, Upper Respiratory Infection (ED) Additional Instructions: Increase fluids especially juices and water Lhfw-zux-egdflzg cough and cold medicine of your choice for your symptoms Zyrtec Claritin or Shalonda daily Tylenol or ibuprofen for any fever pain heat to the face 20-30 minutes 4-6 times a day for pain Salt water gargles, throat lozenges or throat sprays as desired If your symptoms persist, change or worsen significantly before you can contact your personal physician then please, without delay, go to the emergency department for further evaluation. Follow-up with PCP in 7-10 days or sooner if needed Your strep test today was negative. A throat culture will be sent to the laboratory for further testing. IF the test is positive, you will receive a phone call within 48 hours and an appropriate antibiotic will be initiated at that time. Patient Language: Faroese Prescriptions: New cetirizine [Zyrtec] 10 mg tablet 10 mg PO DAILY Qty: 30 0RF dextromethorphan-guaifenesin [Delsym Cough-Chest Congest DM] 5-100 mg/5 mL liquid 10 ml PO Q4-8H PRN (Reason: cough) Qty: 200 0RF Follow-up/Referrals: UNKNOWN,DOCTOR [Primary Care Provider] - Stand Alone Forms: Work/School Release IP Time of Disposition: 20:18 Quality Raghav Coma Scale Eyes: Open Verbal: Oriented and Alert Motor: Follows Commands [place] Coma Total Score: 15
[2024-07-09 20:11] LABS: EDSTREPNEGPOS1 Negative (Negative)
== END 2024-07-09 20:23 | disposition home or self-care (01) ==
PROVIDERS: Emergency Provider Registered Nurse
DX: J02.9 Acute pharyngitis, unspecified (principal); J06.9 Acute upper respiratory infection, unspecified; F17.290 Nicotine dependence, other tobacco product, uncomplicated; F12.90 Cannabis use, unspecified, uncomplicated; K21.9 Gastro-esophageal reflux disease without esophagitis; N26.1 Atrophy of kidney (terminal)
CPT/HCPCS: 87081; 87880; 99213; G0463

== ENCOUNTER 2024-07-31 16:56 | Emergency (ER) | payer OTHER, SELFPAY ==
--- OUTSIDE RECORDS SUMMARY | 2024-07-31 16:59 | XMS_ITS | Referral Summary ---
Author Organization [address] lt Address [address] [facility] [place] [address] Care Team Providers Care Health Care Consultant Name Role Phone Sherwin Su ACID PUMPER Primary Care Provider Allergies Active Allergy Reactions [...] on file Legal Sex Female 11:29 PM BIOASSAYIST Gender Identity Not on file Sexual Orientation Not on file Last Filed Vital Signs Vital Sign Reading Time Taken Comments Blood Pressure 123/70 01/23/2023 1:41 PM CDT Pulse 68 01/23/2023 1:41 PM CDT Temperature 36.4 C (97.5 F) 01/23/2023 1:41 PM CDT Respiratory Rate 18 05/29/2022 7:42 AM BIOASSAYIST Oxygen Saturation 99% 01/23/2023 1:41 PM CDT Inhaled Oxygen Concentration - - Weight 44.7 kg (98 lb 8 oz) 01/23/2023 1:41 PM C DT Height 147.3 cm (4' 9.99 ) 01/23/2023 1:41 PM CD T Body Mass Index 20.59 01/23/2023 1:41 PM CDT Plan of Treatment Not on file Medical Devices Explanted Type Area Screen Printing Loader Unloader Device Identifier Shelf Expiration Date Model / Serial / Lot Conjectur Universa 5fr 22cm Radiopaque Positioner Monofilament Tether [id number] - [id number] Implanted:Qty: 1 on 05/27/2022 by Cuba Perez DO at [facility] Explanted:Qty: 1 on 06/29/2022 by Cuba Perez DO Conjectur 10/07/2023 [id number] / / [id number] Insurance [facility] Advance Directives For more information, please contact: [phone] * Full Code (Latest Code Status on File) Date Activated Date Inactivated Comments 05/27/2022 6:34 PM 05/29/2022 7:47 PM Care Teams Health Care Consultant Relationship Specialty Start Date End Date Sherwin Su NP [address] [place] [address] PCP - General Nurse Practitioner 04/03/23
--- OUTSIDE RECORDS SUMMARY | 2024-07-31 16:59 | XMS_ITS ---
Author Organization [facility] Address [address] [place] [address] Phone Care Team Providers Care Stock Turner Name Role Phone Sherwin Su APRN, SECURITY INCIDENT RESPONSE ENGINEER Primary Care Pr ovider Jesse Barnard APRN, SECURITY INCIDENT RESPONSE ENGINEER Unavailable [phone] Katy Esteban MD Unavailable [phone] Zaira Hanley APRN, SEAL DELIVERY VEHICLE OFFICER Unavailable + [phone] Yolanda Ashby APRN, SECURITY INCIDENT RESPONSE ENGINEER Unavailable Eleazar Allred MD Unavailable [facility] Status:Enrolled (Active) Start date:04/24/2024 Enrollment date:04/24/2024 Related social drivers of health:Social Connections, Tobacco Use, Financial Resource Strain, Depression, Stress, Food Insecurity, Transportation Needs, Housing Stability, Utilities Continued Care and Services Coordination
--- OUTSIDE RECORDS SUMMARY | 2024-07-31 16:59 | XMS_ITS | Clinical Summary ---
Author Organization [address] lt Address [address] [place] [address] Care Team Providers Care Back Tender Cylinder Name Role Phone Sherwin Su NP Primary [...] on file Legal Sex Female 11:29 PM CUSHION MAKER Gender Identity Not on file Sexual Orientation Not on file Obstetrics History Last Filed Vital Signs Vital Sign Reading Time Taken Comments Blood Pressure 123/70 01/23/2023 1:41 PM CDT Pulse 68 01/23/2023 1:41 PM CDT Temperature 36.4 C (97.5 F) 01/23/2023 1:41 PM CDT Respiratory Rate 18 05/29/2022 7:42 AM CUSHION MAKER Oxygen Saturation 99% 01/23/2023 1:41 PM CDT [...] Vaccines Discontinued Medical Devices Explanted Type Area Surgical Assist Device Identifier Shelf Expiration Date Model / Serial / Lot [employer] Universa 5fr 22cm Radiopaque Positioner Monofilament Tether [id number] - [id number] Implanted:Qty: 1 on 05/27/2022 by Cuba Perez DO at [facility] Explanted:Qty: 1 on 06/29/2022 by Cuba Perez DO [employer] 10/07/2023 [id number] / / [id number] Insurance [facility] Member Subscriber Plan / Payer ( fective 2018-Present) Name:Florentin White Relation to Subscriber:Self Name:Florentin White Payer ID:[id number] (NAIC) Type:MEDICAID RISK OTHER Address: [place] [id number] Advance Directives For more information, please contact: [phone] * Full Code (Latest Code Status on File) Date Activated Date Inactivated Comments 05/27/2022 6:34 PM 05/29/2022 7:47 PM Care Teams Back Tender Cylinder Relationship Specialty Start Date End Date Sherwin Su NP [address] [address] PCP - General Nurse Practitioner 04/03/23
--- OUTSIDE RECORDS SUMMARY | 2024-07-31 16:59 | XMS_ITS | Clinical Summary ---
Author Organization [facility] Address [address] [facility] [place] [address] Phone Care Team Providers Care Urban Designer Name Role Phone Sherwin Su APRN, ROLLOFF TRUCK DRIVER Primary Care Pr ovider Jesse Barnard APRN, ROLLOFF TRUCK DRIVER Unavailable [phone] Katy Esteban MD Unavailable [phone] Zaira Hanley APRN, [facility] Unavailable + [phone] Yolanda Ashby APRN, ROLLOFF TRUCK DRIVER Unavailable Eleazar Allred MD Unavailable Allergies Active [...] 06/04/2024 Telephone [facility] [address] [place] [phone] Sherwin Su APRN, ROLLOFF TRUCK DRIVER Results 06/03/2024 3:23 PM CDT - 06/03/2024 5:59 PM CDT Emergency [facility] [address] [place] [address] Joselyn Peter APRN, ROLLOFF TRUCK DRIVER Discharge Disposition: Left Against Medical Advice 06/03/2024 Travel 06/03/2024 Nurse Triage [facility] [address] [place] [phone] Sherwin Su APRN, LAURA Advice Only; Anxiety 05/15/2024 10:30 AM FOCUSING MACHINE OPERATOR [facility] [place] [address] Truong Triana MD Yeast infection (Primary Dx); Bladder infection; Left flank pain; History of pyeloplasty 05/15/2024 [facility] [place] [address] Truong Triana MD 05/14/2024 Travel from Last [...] drink = 0.6 oz pur e alcohol) [facility] Utilities Answer Date Recorded In the past 12 months has [employer], gas, oil, or water [employer] threatened to shut off services in your [...] often do you attend chur ch or yazidism services? Never 05/14/2024 Do you belong to any clubs o r organizations such as adventist groups, unions, fraternal or athletic groups, or [...] Total Score - Questions 1-9 19 08/25 [facility] - Occupational Stress [...] place to sleep or slept in a detention (including now)? No 05/14/2023 Housing Stability Vital [...] any time in the past 12 m [facility], were you homeless or living in a detention (including now)? No 05/14/2024 Education Answer Date [...] 23 8:30 AM CDT) Yes Clotilde Fay, SUPERVISOR MACHINE SETTER Procedures Procedure Name Priority Date/Time Associated Diagnosis [...] exam with routine gynecological exam PATHOLOGY CYTOLOGY ELEMENTARY ESL TEACHER Routine 01/24/2023 10:04 AM CDT Encounter for well woman exam with routine gynecological exam from Last 3 Months or Most Recently Relevant to Health Maintenance Results * TROPONIN I, HIGH SENSITIVITY (HSTRP) (06/03/2024 3:50 PM CDT) Only the most recent of2 resultswithin the time period is included. TROPONIN I, HIGH SENSITIVITY- [place]EVENSON <3 <=14 ng/L 06/03/2024 4:21 PM CDT [facility] Comment: High-sensitivity troponin I results are reported in ng/L making the result appear to be 1,000 times higher than the contemporary troponin I value which is reported in ng/ml. Results from [facility]. Blood Venipuncture / Unknown 06/03/2024 3:50 PM CDT 06/03/2024 3:56 PM CDT us Joselyn Peter SIDE PULLER, ROLLOFF TRUCK DRIVER CHEMISTRY ORDERABL ES Final Result [facility] [address] [place] [address] * (ABNORMAL) URINALYSIS REFLEX IF INDICATED BY ABNORMAL RESULTS (06/03/2024 3:26 PM CDT) SPECIFIC GRAVITY 1.020 1.003 - 1.030 06/03/2024 4:37 PM CDT [facility] URINE PH 5.0 5.0 - 9.0 06/03/2024 4:37 PM CDT [facility] WBC ESTERASE Negative Negative 06/03/2024 4:37 PM CDT [facility] NITRITE Negative Negative 06/03/2024 4:37 PM CDT [facility] PROTEIN, RANDOM URINE 30 mg/dL(A) Negative 06/03/2024 4:37 PM CDT [facility] URINE GLUCOSE, QUAL Negative Negative 06/03/2024 4:37 PM CDT [facility] URINE KETONES Negative Negative 06/03/2024 4:37 PM CDT [facility] UROBILINOGEN Normal Normal mg/dL 06/03/2024 4:37 PM CDT [facility] URINE BLOOD Negative Negative lenny/ul 06/03/2024 4:37 PM CDT [facility] URINALYSIS COLOR Yellow 06/04/19 4:37 PM CDT [facility] URINALYSIS CLARITY Clear 06/03/2024 4:37 PM CDT [facility] WBC (Urine) 0-5 Negative, 0-5 /hpf 06/03/2024 4:37 PM CDT [facility] URINE RBC'S 0-2 Negative, 0-2 /hpf 06/03/2024 4:37 PM CDT [facility] EPITHELIAL CELLS Moderate amount /lpf 06/03/2024 4:37 PM CDT [facility] BACTERIA, URINE Few(A) Negative /hpf 06/03/2024 4:37 PM CDT [facility] Urine URINE SPECIMEN / Unknown Non-Phlebotomy Collection / Unknown 06/03/2024 3:26 PM CDT 06/03/2024 3:33 PM CDT us Niko James MD URINE ORDERABLES Final Result Performing Organization Address City/[facility]/ZIP Co de Phone Number [facility] [address] [place] [address] * POCT Urine HCG () (06/03/2024 3:24 PM CDT) POC URINE Negative [facility] POC URINE CONTROL Hop Trainer Pass [facility] Urine 06/03/2024 3:24 PM CDT us Niko James MD POINT OF CARE TESTING (MANUAL) F inal Result Performing Organization Address City/[facility] Co de Phone Number [facility] [address] [place] [address] * RSV,SARS-COV-2,INFLUENZA A&B BY PCR (06/03/2024 1:25 PM CDT) FLU A Negative Negative, Error 06/03/2024 2:20 PM CDT [facility] FLU B Negative Negative 06/03/2024 2:20 PM CDT [facility] RESP SYNC VIRUS Negative Negative 2:20 PM CDT [facility] SARSCOV2 NOT DETECTED (Reference Range for this test is Not Detected) 06/03/2024 2:20 PM CDT [facility] Comment:This test was perfor med by a Reverse Chargeback Analyst PCR Method. Swab NASOPHARYNGEAL SWAB / Unknown Non-Phlebotomy Collection / Unknown 06/03/2024 1:25 PM CDT 06/03/2024 1:39 PM CDT us Niko James MD MICROBIOLOGY - GENERAL ORDERABLE S Final Result Performing Organization Address City/[facility]/ZIP Co de Phone Number [facility] [address] [place] [address] * Gold Top Tube (06/03/2024 1:25 PM CDT) Blood No Phlebotomy Charged / Unknown 06/03/2024 1:25 PM CDT 06/03/2024 2:50 PM CDT Sherwin Su APRN, ROLLOFF TRUCK DRIVER CHEMISTRY ORDERA BLES Final Result Performing Organization Address [facility]/ZIP Co de Phone Number [facility] [address] [place] [address] * Blue Top Tube (06/03/2024 1:25 PM CDT) Blood No Phlebotomy Charged / Unknown 06/03/2024 1:25 PM CDT 06/03/2024 2:50 PM CDT Sherwin Su APRN, LAURA HEMATOLOGY ORDER ASHANTI Final Result Performing Organization Address [facility] Co de Phone Number [facility] [address] [place] [address] * (ABNORMAL) CBC with Auto Differential (06/03/2024 1:25 PM CDT) WBC 9.08 4.00 - 12.00 10(3)/mcL 06/03/2024 1:44 PM CDT [facility] RBC 3.78(L) 3.80 - 5.30 10(6)/mcL 06/03/2024 1:44 PM CDT [facility] HEMOGLOBIN (HGB) 11.3(L) 12.0 - 15.8 g/dL 06/03/2024 1:44 PM CDT [facility] HEMATOCRIT (HCT) 33.1(L) 36.0 - 47.0 % 06/03/2024 1:44 PM CDT [facility] MCV 87.6 82.0 - 96.0 fL 06/03/2024 1:44 PM CDT [facility] MCH 29.9 26.0 - 34.0 pg 06/03/2024 1:44 PM CDT [facility] MCHC 34.1 31.0 - 36.0 g/dL 06/03/2024 1:44 PM CDT [facility] PLATELET COUNT 360 140 - 440 10(3)/mcL 06/03/2024 1:44 PM CDT [facility] RDW 13.0 11.8 - 15.5 % 06/03/2024 1:44 PM CDT [facility] MPV 9.2(L) 9.7 - 12.4 fL 06/03/2024 1:44 PM CDT [facility] NEUTROPHILS 65.4 47.0 - 73.0 % 06/03/2024 1:44 PM CDT [facility] LYMPHOCYTES 25.3 18.0 - 42.0 % 06/03/2024 1:44 PM CDT [facility] MONOCYTES 6.9 4.0 - 12.0 % 06/03/2024 1:44 PM CDT [facility] EOSINOPHILS 1.5 0.0 - 5.0 % 06/03/2024 1:44 PM CDT [facility] BASOPHILS 0.9 0.0 - 1.0 % 06/03/2024 1:44 PM CDT [facility] ABSOLUTE NEUTROPHILS 5.93 1.60 - 7.70 10(3)/mcL 06/03/2024 1:44 PM CDT [facility] ABSOLUTE LYMPHOCYTES 2.30 1.30 - 3.20 10(3)/mcL 06/03/2024 1:44 PM CDT [facility] ABSOLUTE MONOCYTES 0.63 0.20 - 1.00 10(3)/mcL 06/03/2024 1:44 PM CDT [facility] ABSOLUTE EOSINOPHIL 0.14 0.00 - 0.40 10(3)/mcL 06/03/2024 1:44 PM CDT [facility] ABSOLUTE BASOPHILS 0.08 0.00 - 0.10 10(3)/mcL 06/03/2024 1:44 PM CDT [facility] NRBC PER 100 WBC 0 06/04/19 1:44 PM CDT [facility] Blood Venipuncture / Unknown 06/03/2024 1:25 PM CDT 06/03/2024 1:40 PM CDT us Niko James MD HEMATOLOGY ORDERABLES Final Resu lt [facility] [address] [place] [address] * (ABNORMAL) CMP (Comprehensive Metabolic Panel) (06/03/2024 1:25 PM CDT) SODIUM 141 136 - 145 mmol/L 06/03/2024 2:00 PM CDT [facility] POTASSIUM 3.8 3.5 - 5.1 mmol/L 06/03/2024 2:00 PM CDT [facility] CHLORIDE 112(H) 98 - 107 mmol/L 06/03/2024 2:00 PM CDT [facility] CO2, VENOUS 20(L) 22 - 30 mmol/L 06/03/2024 2:00 PM CDT [facility] ANION GAP 12.8 <18.0 mmol/L 06/03/2024 2:00 PM CDT [facility] GLUCOSE 110(H) 70 - 99 mg/dL 06/03/2024 2:00 PM CDT [facility] BUN 12 5 - 18 mg/dL 06/03/2024 2:00 PM CDT [facility] CREATININE, BLOOD 0.81 0.60 - 1.00 mg/dL 06/03/2024 2:00 PM CDT [facility] BUN/CREATININE RATIO 15 12 - 20 ratio 06/03/2024 2:00 PM CDT [facility] TOTAL PROTEIN 7.0 6.0 - 8.0 g/dL 06/03/2024 2:00 PM CDT [facility] ALBUMIN 4.3 3.5 - 5.0 g/dL 06/03/2024 2:00 PM CDT [facility] A/G RATIO 1.6 1.0 - 2.2 06/03/2024 2:00 PM CDT [facility] CALCIUM 8.7 8.7 - 10.5 mg/dL 06/03/2024 2:00 PM CDT [facility] T BILI 0.7 0.2 - 1.2 mg/dL 06/03/2024 2:00 PM CDT [facility] SGOT (AST) 15 <43 U/L 06/03/2024 2:00 PM CDT [facility] SGPT (ALT) 7 <56 U/L 06/03/2024 2:00 PM CDT [facility] ALKALINE PHOSPHATASE 47 40 - 150 U/L 06/03/2024 2:00 PM CDT [facility] GFR, ESTIMATED >60 >=60 06/03/2024 2:00 PM CDT [facility] Comment: Creatinine Clearance is the preferred criteria for selecting drug dose adjustments in renally impaired patients. The GFR is provided as additional pertinent clinical information. GFR is reported in mL/min/1.73 sq m. Calculation based on the Chronic Kidney Disease Epidemiology Collaboration (CKD- EPI) equation refit without adjustment for race. GFR, EST. >60 >=60 025 2:00 PM CDT [facility] GFR, EST. NONAFRICAN >60 >=60 06/03/2024 2:00 PM CDT [facility] Blood Venipuncture / Unknown 06/03/2024 1:25 PM CDT 06/03/2024 1:40 PM CDT us Niko James MD CHEMISTRY ORDERABLES Final Resul t [facility] [address] [place] [address] * EKG 12 LEAD (06/03/2024 1:24 PM CDT) Ventricular Rate 81 BPM EXTERNAL EKG Atrial Rate 81 BPM EXTERNAL EKG P-R Interval 146 ms EXTERNAL EKG QRS Duration 72 ms EXTERNAL EKG Q-T Duration 362 ms EXTERNAL EKG QTC CALCULATION 420 ms EXTERNAL EKG P [place] 83 degrees EXTERNAL EKG R [place] 73 degrees EXTERNAL EKG T [place] 71 degrees EXTERNAL EKG 06/03/2024 1:24 PM CDT Impressions EXTERNAL EKG - 06/04/2024 8:20 PM CDT Normal sinus rhythm Normal ECG No previous ECGs available Confirmed by ORIN YODER ([id number]) on 06/04/2024 8:20:34 PM Narrative Procedure Note Orin Yoder MD - 06/04/2024 IMPRESSION: Normal sinus rhythm Normal ECG No previous ECGs available Confirmed by ORIN YODER ([id number]) on 06/04/2024 8:20:34 PM Niko James MD IMG ECG ORDERABLES Final Result EXTERNAL EKG * EKG SCAN (06/03/2024 12:00 AM CDT) 06/03/2024 us Provider Scan IMG ECG ORDERABLES Final Result RESULTING AGENCY * PATHOLOGY CYTOLOGY ELEMENTARY ESL TEACHER (01/24/2023 10:04 AM CDT) SPECIMEN ADEQUACY Satisfactory for evaluation. Endocervical/transf ormation zone component is present. 02/08/2023 3:14 PM FOCUSING MACHINE OPERATOR [facility] DESCRIPTIVE DIAGNOSIS NEGATIVE FOR INTRAEPITHELIAL LESIONS OR MALIGNANCY. 02/08/2023 3:14 PM FOCUSING MACHINE OPERATOR [facility] at 1514 FOCUSING MACHINE OPERATOR Automated Examination Analysis of this sample has been assisted by an automated imaging and review system ([employer] System, [employer], [place], [place]). This case is further evaluated and finalized by a boat and plant utility supervisor and/or pathologist. 02/08/2023 3:14 PM FOCUSING MACHINE OPERATOR [facility] Disclaimer The PAP smear is a [...] 65 unless clinically indicated. 02/08/2023 3:14 PM FOCUSING MACHINE OPERATOR [facility] Case Report Gynecologic Cytology Report Case: [id number] Authorizing Provider: Delaney Gardner APRN, CNP Collected: 01/24/2023 10:04 AM Ordering Location: [facility] Received: 01/24/2023 10:04 AM [facility] First Screen: Roma Aguirre Rescreen: Daisy Vargas Specimen: TP Screen, Cervix/Endocervix 02/08/2023 3:14 PM FOCUSING MACHINE OPERATOR [facility] Other CERVIX UTERI STRUCTURE / Unknown Non-Phlebotomy Collection / Unknown 01/24/2023 10:04 AM CDT 01/24/2023 10:04 AM CDT us Delaney Gardner APRN, CNP PATHOLOGY/CYTOLOGY ORDER ASHANTI Final Result [facility] [address] [place] [address], * HUMAN PAPILLOMA VIRUS (HPV) (01/24/2023 10:04 AM CDT) HPV OTHER HIGH RISK TYPES, PCR NEGATIVE NEGATIVE 01/25/2023 1:48 PM CDT [facility] Comment: The following Other High Risk [...] 16 NEGATIVE NEGATIVE 01/25/2023 1:48 PM CDT [facility] Comment: A negative high-risk HPV result [...] 18 NEGATIVE NEGATIVE 01/25/2023 1:48 PM CDT [facility] Comment: A negative high-risk HPV result [...] OR DIAGNOSTIC SCREENING 01/25/2023 1:48 PM CDT [facility] Other Non-Phlebotomy Collection / Unknown 01/24/2023 10:04 AM CDT 01/24/2023 10:04 AM CDT [facility] - 01/25/2023 1:48 PM CDT Performed by Real-Time Polymerase Chain Reaction (PCR) on the [employer] 4800. This assay has been validated for use with post-aliquot samples from the [employer] processor. us Delaney Gardner SIDE PULLER, ROLLOFF TRUCK DRIVER LAB SEND OUTS Final Re sult [facility] [address] [place] [address], [facility] [address] [place] [address] from Last 3 Months or Most Recently [...] measures to stabilize the patient. Care Teams Urban Designer Relationship Specialty Start Date End Date Georgse Sherwinisidra Costello, SIDE PULLER, ROLLOFF TRUCK DRIVER [address] [facility] [address] [place] [address] PCP - General Advanced Practice Nurse 09/30/22 Jesse Barnard, SIDE PULLER, ROLLOFF TRUCK DRIVER [address] [place] [address] Nurse Practitioner Advanced Practice Nurse 01/30/23 Katy Esteban MD [address] [facility] [address] [place] [address] Consulting Physician Urology 03/08/22 Zaira Hanley APRN, E COMMERCE MARKETING MANAGER [address] [place] [address] Nurse Practitioner Advanced Practice Nurse 10/28/22 Yolanda Ashby SIDE PULLER, ROLLOFF TRUCK DRIVER [address] [place] [address] Nurse Practitioner Advanced Practice Nurse 11/16/22 Eleazar Allred MD [address] [facility] [address] [place] [address] Consulting Physician Urology 01/24/24
--- OUTSIDE RECORDS SUMMARY | 2024-07-31 16:59 | XMS_ITS | Clinical Summary ---
Author Organization [facility] Address [address] [address] Care Team Providers Care Vitreo Retinal Surgeon Name Role Phone Patricia Craig APRN-[facility] Primary Care Provider + Source Comments [facility],non-owned Affiliates and Associated Physician Practices is amultiple site organization consisting of ambulatory clinics and hospital sitesin [place], [place], [place] and [place]. This disclosure is being madepursuant to the Care Everywhere program and may not contain all information available regarding this patient. Last updated 17.[facility] Allergies No known active allergies Medications * [...] Comments Blood Pressure 110/70 04/04/2022 2:05 PM HANDLE FINISHER Pulse 58 04/04/2022 2:05 PM HANDLE FINISHER Temperature - - Respiratory Rate - - Oxygen Saturation - - Inhaled Oxygen Concentration - - Weight 46.3 kg (102 lb) 04/04/2022 2:05 PM HANDLE FINISHER Height 147.3 cm (4' 10 ) 04/04/2022 2:05 PM HANDLE FINISHER Body Mass Index 21.32 04/04/2022 2:05 PM HANDLE FINISHER Plan of Treatment Health Maintenance Due Date [...] patient's age to complete this topic Insurance [facility] Care Teams Vitreo Retinal Surgeon Relationship Specialty Start Date End Date Patricia Craig, TIE [place] HAND-EMPLOYMENT CLERK [address] [place] [address] PCP - General 03/15/22
[2024-07-31 17:02] VITALS: BP 136/76; PULSE 75; RESP 16; TEMP 37; O2SAT 100
[2024-07-31 17:13] LABS: EDUAAPPEAR Clear; EDUABILI Negative (Negative); EDUABLOOD Negative (Negative); EDUACOLOR1 Light/Pale; EDUAGLUCOSE Negative (Negative); EDUAKETONE Negative (Negative); EDUALEUKO Negative (Negative); EDUANITRATE Negative (Negative); EDUAPH 6.5; EDUAPROTEIN Negative (Negative); EDUAUROBILI 0.2
--- NOTE | 2024-07-31 17:15 | ED_ITS ---
HPI - Female Genitourinary General Chief complaint: Urogenital-Female Stated complaint: pressure in bladder Time Seen by Provider: 07/31/24 17:05 Source: patient and RN notes reviewed Mode of arrival: ambulatory Limitations: no limitations History of Present Illness HPI Narrative: 33-year-old female presents Express Care complaining of difficulty urinating. Patient says over last few days she feels like head she cannot empty her bladder. He denies any burning with urination, cloudy urine, increased frequency hesitancy. Patient says she has renal atrophy and history of chronic kidney disease. Patient is not follow-up with her four slide machine setter like she is supposed to. Patient's or so reporting some right flank pain. Patient denies any abdominal pain, fevers, body aches, chills. Patient denies any fluid r etention or chest pain or shortness of breath. Patient says she is drink 3 L of water at work and says she has urinated very little urine. Patient states that her urine is clear though however. Related Data Home Medications ?Medication ?Instructions ?Recorded ?Confirmed ?Last Taken ?Type No Home Medications 07/31/24 07/31/24 Unknown History Allergies Allergy/AdvReac Type Severity Reaction Status Date / Time No Known Allergies Allergy Verified 07/31/24 17:03 Review of Systems Review of Systems: CONSTITUTIONAL: Denies fever, chills, body aches or sweats. EYES: Denies visual changes, redness, or discharge. ENT: Denies rhinorrhea, congestion, sore throat, or otalgia. CARDIOVASCULAR: Denies chest pain, palpitations, or edema. RESPIRATORY: Denies cough or dyspnea. GASTROINTESTINAL: Denies abdominal pain, nausea, vomiting, or diarrhea. GENITOURINARY: Denies dysuria or hematuria. Positive for decreased urine output left flank pain. SKIN: Denies rash or itching. MUSCULOSKELETAL: Denies back pain, joint pain, or myalgia. NEUROLOGIC: Denies headache, numbness, or weakness. PSYCHIATRIC: Denies anxiety or depression. All other systems reviewed are negative, except as documented in HPI. [facility] Past Medical History Medical History Renal atrophy, right Vaginal delivery 2 males Hiatal hernia GERD (gastroesophageal reflux disease) Anxiety and depression Loss of teeth due to extraction Surgical History Surgical History History of pyeloplasty left H/O tubal ligation Family History Family History Father Acute myocardial infarction Mother Asthma Grandparent Acute myocardial infarction Social History Social History Smoking packs per day: 1.5 Smoking cigarettes per day: 30.0 Years smoked: 12 Smoking pack-years: 18.00 Smoking status: Current every day smoker Tobacco type: cigarettes and e-cigarettes/vaping Second hand tobacco smoke exposure: Yes Additional smoking assessment comments: Stop smoking cigarettes 2 years ago and now vaping Alcohol intake: former Substance use: current Substance use type: marijuana Living arrangements: with family Occupation/Education: occupation Gender identity (if verbalized by the patient): Female Sexual Orientation (if Verbalized by the Patient): Straight or Heterosexual Comments At the time of my signature, I reviewed and agree with the nursing past medical, surgical, social, and family history. There is no relevant family history pertinent to the patient complaint. Exam Narrative: GENERAL: This is a well-nourished, well-developed adult, in no apparent distress. They are non ill-appearing, nontoxic appearing. HEAD: normocephalic, atraumatic. EYES: Sclera clear/white. Conjunctiva normal. Vision is grossly intact. Extraocular movements intact EARS: External ears normal, Hearing grossly intact. NOSE: External nose normal THROAT: Mucous membranes moist, NECK: Neck supple, non-tender without lymphadenopathy, masses or thyromegaly. CARDIOVASCULAR: Regular rate and rhythm without murmurs, gallops, or rubs. RESPIRATORY: Clear to auscultation. Breath sounds equal bilaterally. No wheezes, rales, or rhonchi. GASTROINTESTINAL: Abdomen soft, non-tender, nondistended. Bowel sounds are active. No hepato-splenomegaly, or palpable masses. No guarding. SKIN: warm, Dry, intact with no suspicious lesions or rash, good texture and turgor. NEURO: awake, alert, and oriented to person, place and time. There were no obvious focal neurologic abnormalities. EXTREMITIES: No joint tenderness, effusion, or edema noted. BACK: Nontender without deformity. No CVA tenderness. Course Course Emergency Course: Portions of this record may have been created with voice recognition software Level of Care: Express Care Visit Vital Signs Vital signs: Vital Signs Temperature 98.6 F 07/31/24 17:02 Pulse Rate 75 07/31/24 17:02 Respiratory Rate 16 07/31/24 17:02 Blood Pressure 136/76 07/31/24 17:02 Pulse Oximetry 100 07/31/24 17:02 Oxygen Delivery Room Air 07/31/24 17:02 Temperature 98.6 F 07/31/24 17:02 Pulse Rate 75 07/31/24 17:02 Respiratory Rate 16 07/31/24 17:02 Blood Pressure 136/76 07/31/24 17:02 Pulse Oximetry 100 07/31/24 17:02 Oxygen Delivery Room Air 07/31/24 17:02 Reviewed Transfer Transfered to: [facility] Transportation: Other (Private vehicle) Transfer rationale: Decreased urine output, left flank pain, chronic kidney disease, and requires higher level care Accepting physician: Dr. Reid MDM - Female Genitourinary MDM Narrative Medical decision making narrative: Urine dipstick negative for any signs of infection. Specific gravity is 1.010. No signs urinary retention on exam. Patient appears well hydrated. No signs of fluid retention. Patient claims that she thinks 3 L of fluids at work and has not urinated much. Given patient's symptoms and history it is recommended seek higher level of care for further evaluation and management of her symptoms. Patient is agreeable to go to [facility] Emergency Department. Colorectal a moral spoke with Clay Barillas is aware this patient and Dr. Reid accepted patient for transfer. Patient advised to go immediately to the emergency department remain NPO. Differential Diagnosis Differential diagnosis: Likely urinary tract infection and other (Chronic kidney disease, kidney failure, kidney stone, urinary retention) Lab Data Labs: Lab Results 07/31/24 Range/Units 17:09 POC Urine Color Light/pale POC Urine Clarity Clear POC Urine pH 6.5 POC Ur Specif [place] 1.010 POC Urine Protein Negative (Negative) POC Ur Glucose (UA) Negative (Negative) POC Urine Ketones Negative (Negative) POC Urine Blood Negative (Negative) POC Urine Nitrite Negative (Negative) POC Urine Bilirubin Negative (Negative) POC Urine Urobilinogen 0.2 POC U Leukocyte Esteras Negative (Negative) Critical Care Time Critical Care Time Critical Care Time: No Discharge Plan Discharge Clinical Impression: Decreased urine output Patient Disposition: Acute Care Hospital Condition: Stable Patient Language: Slovak Prescriptions: No Action No Home Medications Follow-up/Referrals: UNKNOWN,DOCTOR [Primary Care Provider] - Time of Disposition: 17:27
== END 2024-07-31 17:29 | disposition short-term general hospital (02) ==
DX: R34 Anuria and oliguria (principal); F17.290 Nicotine dependence, other tobacco product, uncomplicated; N26.1 Atrophy of kidney (terminal); N18.9 Chronic kidney disease, unspecified; K21.9 Gastro-esophageal reflux disease without esophagitis
CPT/HCPCS: 81003; 87086; 99213; G0463

== ENCOUNTER 2024-10-26 11:58 | Emergency (ER) | payer OTHER, SELFPAY ==
--- OUTSIDE RECORDS SUMMARY | 2024-10-26 12:01 | XMS_ITS | Clinical Summary ---
Author Organization [facility] Address [address] [place] [address] Phone Care Team Providers Care Hardener Helper Name Role Phone Sherwin Su APRN, SITE TECHNICIAN Primary Care Pr ovider Jesse Barnard APRN, SITE TECHNICIAN Unavailable [phone] Katy Esteban MD Unavailable [phone] Zaira Hanley APRN, [facility] Unavailable [phone] Yolanda Ashby APRN, SITE TECHNICIAN Unavailable Eleazar Allred MD Unavailable Allergies Active Allergy Reactions Criticality Noted Date Comments Codeine Nausea,Vomiting Low 07/19/2015 Patient states reaction was when she was younger. States she has taken it as an adult without any adverse effects. Medications famotidine (PEPCID) 20 MG TabletIndicati ons:Bulimia nervosa Take 1 Tablet by mouth 2 times daily. 60 Tablet 3 4 Active Additional Information Patient not taking.Reported on 10/07/2024 acetaminophen (Midol) 650 MG Tablet Controlled Release Take 650 mg by mouth every 6 hours as needed. Active omeprazole (PriLOSEC) 20 MG CAPSULE DELAYED RELEASE Take 1 Capsule by mouth daily. 90 Capsule Active Additional Information Patient not taking.Reported on 10/07/2024 mirtazapine (REMERON) 15 MG TabletIndicati ons:ROGE (generalized anxiety disorder) Take 1 Tablet by mouth nightly. 30 Tablet 3 5 Active OLANZapine (ZyPREXA) 2.5 MG Tablet Take 1 Tablet by mouth nightly. 30 Tablet 5 Active mirtazapine (REMERON) 15 MG TabletIndicati ons:Bulimia nervosa,ROGE (generalized anxiety disorder) Take 1 Tablet by mouth nightly. 30 Tablet 3 4 10/08/19 25 Discontin ued(Reord er) Active Problems Problem Noted Date Diagnosed Date Yeast infection 05/15/2024 Bladder infection 05/15/2024 History of pyeloplasty 05/15/2024 Left flank pain 05/15/2024 Anxiety 11/21/2022 Seizure-like activity 10/28/2022 Chronic sore throat 02/28/2022 Dysthymia 08/22/2019 08/01/2016 Overview (08/01/2016): 37&6/7 weeks Small for gestational age (SGA) 08/01/2016 Overview (08/01/2016): Mother 1ppd smoker Estimated wgt without smoking 2600grams and NOT Sga Encounters Date Type Department Care Team Description 10/11/2024 [facility] [address] [place] [phone] Sherwin Su, JOSEPHINE, SITE TECHNICIAN Advice Only; Medication Problem 10/10/2024 Telephone [facility] [address] [place] [phone] Sherwin Su, LEATHER ROLLER, SITE TECHNICIAN Follow-up 10/09/2024 Patient Outreach [facility] [address] [place] [phone] Ruchi Galicia LSW Care Management ([facility]) 10/07/2024 11:00 AM CDT Office Visit [facility] [place] [address] [place] [phone] Felicitas Reddy APRN, SITE TECHNICIAN Reactive depression (Primary Dx); ROGE (generalized anxiety disorder) Discharge Disposition: Discharged to home or Selfcare 10/07/2024 Travel 10/07/2024 Nurse Triage [facility] [address] [place] [phone] Sherwin Su, LAURA BURTON Depression; Diarrhea from Last 3 Months Immunizations Immunization Administration Dates Next Due DTP Vaccine 10/24/1997, 5,08/11/1993,1992,1992 Hepatitis B Vaccine, Pediatric/adolescent 01/24/1995,12/28/1994,07/19/1994 Hib Vaccine,unspecified Formulation 11/25,08/11/1993,02/09/1993,1992 MMR Vaccine 11/28/2014,10/24/1997,12/10/1993 OPV 10/24/1997, 4,02/09/1993,1992 TDAP Vaccine 07/07/2016,11/28/2014,11/10/2006 Family History Medical History Relation Name Comments Diabetes Brother 1 Dada Half brother Diabetes Brother 2 Dada Buckley Heart Attack Father Blic 5 heart attacks Congestive Heart Failure Maternal Grandmother Annel Iniguez kiara Cancer Maternal Uncle Asher Anxiety disorder Mother Antonina White Asthma Mother Antonina White Breast Cancer Mother Antonina White Cancer Mother Antonina White She Chronic Obstructive Pulmonary Disease Mother Antonina White Depression Mother Antonina White Other-comment Mother Antonina White FLLU AND PNUEM ONIA Labor Mother Antonina White Diabetes Nephew Diabetes Other Heart Attack Paternal Grandfather Jose Kempls Sr Heart Attack Paternal Grandmother Sonia Vasques No Known Problems Sister Relation Name Status Comments Brother 1 Dada Alive Brother 2 Dada Buckley Alive Father Blic Alive Maternal Grandfather Maternal Grandmother Annel Gamez Alive Maternal Uncle Asher Alive Mother Antonina White Nephew Alive Other Paternal Grandfather Jose Cindy Sr Paternal Grandmother Sonia Vasques Alive Sister Alive Social History Tobacco Use Types Packs/Day Years Used Date Smoking Tobacco: Former Cigarettes 1 2017 Smokeless Tobacco: Never Tobacco Cessation:Counseling Given: No Alcohol Use Standard Drinks/Week Comments Never 0 (1 standard drink = 0.6 oz pur e alcohol) Social Connection and Isolation Panel Answer Date Recorded In a typical week, how many times do you talk on the phone with family, friends, or neighbors? Once a week 05/14/19 25 How often do you get togethe r with friends or relatives? Twice a week 05/14/2024 How often do you attend chur ch or taoist services? Never 05/14/2024 Do you belong to any clubs o r organizations such as voodoo groups, unions, fraternal or athletic groups, or school groups? No 05/14/2024 How often do you attend meet ings of the clubs or organizations you belong to? Never 05/14/2024 Are you , , di vorced, , never , or living with a partner? Living with partner 05/14/2024 PHQ-2 Answer Date Recorded Total Score - Questions 1-9 21 09/24 Housing Stability Vital Sign Answer Tien e [...] place to sleep or slept in a usp (including now)? No 05/14/2023 Housing Stability Vital [...] any time in the past 12 m [facility], were you homeless or living in a usp (including now)? No 05/14/2024 Social Connection and Isolation Panel Answer Date Recorded In a typical week, how many times do you talk on the phone with family, friends, or neighbors? Once a week 10/10/2024 How often do you get together with friends or re latives? Twice a week 10/10/2024 How often do you attend voodoo or taoist serv ices? Never 10/10/2024 Do you belong to any clubs o r organizations such as voodoo groups, unions, fraternal or athletic groups, or school groups? No 10/10/2024 How often do you attend meet ings of the clubs or organizations you belong to? Never 10/10/2024 Marital Status Not on file 10/10/2024 AUDIT-C Answer Date Recorded Q1: How often do you have a drink containing alcohol? Never 10/10/2024 Q2: How many drinks containi ng alcohol do you have on a typical day when you are drinking? Patient does not drink Q3: How often do you have si x or more drinks on one occasion? Never 10/10/2024 Overall Financial Resource Strain (CARDIA) Answe r Date Recorded How hard is it for you to pa y for the very basics like food, housing, medical care, and heating? Somewhat hard 10/10/2024 [facility] Occupat ional Health - Occupational Stress Questionnaire Answer Date Recorded Do you feel stress - tense, restless, nervous, or anxious, or unable to sleep at night because your mind is troubled all the time - these days? Very much 10/10/2024 Exercise Vital Sign Answer Date Recorde d On average, how many days pe r week do you engage in moderate to strenuous exercise (like a brisk walk)? 5 days 10/10/2024 On average, how many minutes do you engage in exercise at this level? 150+ min 10/10/2024 Hunger Vital Sign Answer Date Recorded Within the past 12 months, y ou worried that your food would run out before you got the money to buy more. Never true 10/11/19 25 Within the past 12 months, t he food you bought just didn't last and you didn't have money to get more. Never true 10/10/2024 PRAPARE - Transportation Answer Date Re corded In the past 12 months, has l ack of transportation kept you from medical appointments or from getting medications? No 09/24 In the past 12 months, has l ack of transportation kept you from meetings, work, or from getting things needed for daily living? No 10/10/2024 Housing Stability Vital Sign Answer Tien e Recorded In the last 12 months, was t here a time when you were not able to pay the mortgage or rent on time? No 10/10/2024 In the past 12 months, how m any times have you moved where you were living? 0 10/10/2024 At any time in the past 12 m [facility], were you homeless or living in a usp (including now)? No 10/10/2024 [facility] Utilities Answer Date Recorded In the past 12 months has th [employer] electric, gas, oil, or water company threatened to shut off services in your home? No 10/10/2024 Education Answer Date Recorded What is the highest level of school you have completed or the highest degree you have received? 10th grade 10/22/2021 Sexually Active Control Partners Comments Yes None Male Comments No Sex and Gender Information Value Date Recorded Sex Assigned at Not on file Legal Sex Female 8:50 PM CDT Gender Identity Not on file Sexual Orientation Not on file Last Filed Vital Signs Vital Sign Reading Time Taken Comments Blood Pressure 94/62 10/07/2024 10:48 AM CDT Pulse 71 10/07/2024 10:48 AM CDT Temperature 36.3 C (97.3 F) 10/07/2024 10:48 AM CDT Respiratory Rate 17 06/03/2024 3:38 PM CDT Oxygen Saturation 97% 10/07/2024 10:48 AM CDT Inhaled Oxygen Concentration - - Weight 42.7 kg (94 lb 3.2 oz) 10/07/2024 10:48 A M CDT Height 147.3 cm (4' 10) 10/07/2024 10:48 AM CDT Body Mass Index 19.69 10/07/2024 10:48 AM CDT Plan of Treatment Upcoming Encounters Date Type Department Care Team (Late st Contact Info) Description 11/07/2024 2:00 PM CDT [facility] [place] [address] [place] [phone] Felicitas Reddy APRN, SITE TECHNICIAN [address] [phone] Health Maintenance Due Date Last Done Comments Hepatitis B Immunization (4 of 4 - 4-dose series) 02/22/1995 01/24/1995, 12/28/1994, 07/19/1994 Human Papillomavirus (HPV) Immunization (1 - 3-dose SCDM series) 08/28/2019 SARS-COV-2 Immunization ( - season) 2023 Influenza Immunization (#1) 2024 Pap Smear 01/24/2026 01/24/2023 DTaP/Tdap/Td Immunization [...] track(12/10/19 8:30 AM CDT) Yes Clotilde Fay, PHYSIOTHERAPY ASSISTANT Procedures Procedure Name Priority Date/Time Associated Diagnosis Comments HUMAN PAPILLOMA VIRUS (HPV) Routine 01/24/2023 10:04 AM CDT Encounter for well woman exam with routine gynecological exam PATHOLOGY CYTOLOGY MACHINE REPAIR PERSON Routine 01/24/2023 10:04 AM CDT Encounter for well woman exam with routine gynecological exam from Last 3 Months or Most Recently Relevant to Health Maintenance Results * PATHOLOGY CYTOLOGY MACHINE REPAIR PERSON (01/24/2023 10:04 AM CDT) SPECIMEN ADEQUACY Satisfactory for evaluation. Endocervical/transf ormation zone component is present. 02/08/2023 3:14 PM TOUR ACTOR [facility] DESCRIPTIVE DIAGNOSIS NEGATIVE FOR INTRAEPITHELIAL LESIONS OR MALIGNANCY. 02/08/2023 3:14 PM TOUR ACTOR [facility] at 1514 TOUR ACTOR Automated Examination Analysis of this sample has been assisted by an automated imaging and review system ([employer] Imaging System, [employer], [place], [place]). This case is further evaluated and finalized by a reproduction artist and/or pathologist. 02/08/2023 3:14 PM TOUR ACTOR [facility] Disclaimer The PAP smear is a [...] recommended every three years for women 21-29, Co-Testing, a PAP test in conjunction with an HPV (Human Papillomavirus) test for women ages 30-65, and no PAP or HPV testing for women under the age of 21 or older than 65 unless clinically indicated. 02/08/2023 3:14 PM TOUR ACTOR [facility] Case Report Gynecologic Cytology Report Case: [id number] Authorizing Provider: Delaney Gardner APRN, CNP Collected: 01/24/2023 10:04 AM Ordering Location: [facility] Received: 01/24/2023 10:04 AM [facility] First Screen: Roma Aguirre Rescreen: Daisy Vargas Specimen: TP Screen, Cervix/Endocervix 02/08/2023 3:14 PM TOUR ACTOR [facility] Other CERVIX UTERI STRUCTURE / Unknown Non-Phlebotomy Collection / Unknown 01/24/2023 10:04 AM CDT 01/24/2023 10:04 AM CDT us Delaney Gardner APRN, CNP PATHOLOGY/CYTOLOGY ORDER ASHANTI Final Result [facility] [address] [place] [address], [place] * HUMAN PAPILLOMA VIRUS (HPV) (01/24/2023 10:04 AM CDT) HPV OTHER HIGH RISK TYPES, PCR NEGATIVE NEGATIVE 01/25/2023 1:48 PM CDT [facility] Comment: The following Other High Risk [...] 16 NEGATIVE NEGATIVE 01/25/2023 1:48 PM CDT [facility] Comment: A negative high-risk HPV result [...] 18 NEGATIVE NEGATIVE 01/25/2023 1:48 PM CDT [facility] Comment: A negative high-risk HPV result [...] OR DIAGNOSTIC SCREENING 01/25/2023 1:48 PM CDT [facility] Other Non-Phlebotomy Collection / Unknown 01/24/2023 10:04 AM CDT 01/24/2023 10:04 AM CDT Narrative [facility] - 01/25/2023 1:48 PM CDT Performed by Real-Time Polymerase Chain Reaction (PCR) on the [employer] Xander 4800. This assay has been validated for use with post-aliquot samples from the [employer] processor. us Delaney Gardner LEATHER ROLLER, SITE TECHNICIAN LAB SEND OUTS Final Re sult [facility] [address] [place] [address], [place] [facility] [address] [place] [address] from Last 3 Months or Most Recently [...] measures to stabilize the patient. Care Teams Hardener Helper Relationship Specialty Start Date End Date Sherwin Su APRN, SITE TECHNICIAN [address] [facility] [address] [place] [address] PCP - General Advanced Practice Nurse 09/30/22 Jesse Barnard APRN, SITE TECHNICIAN [address] [place] [address] Nurse Practitioner Advanced Practice Nurse 01/30/23 Katy Esteban MD [address] [address] Consulting Physician Urology 03/08/22 Zaira Hanley APRN, RAIL CREW MEMBER [address] [place] [address] Nurse Practitioner Advanced Practice Nurse 10/28/22 Yolanda Ashby APRN, SITE TECHNICIAN [address] [place] [address] Nurse Practitioner Advanced Practice Nurse 11/16/22 Eleazar Allred MD [address] [address] Consulting Physician Urology 01/24/24
[2024-10-26 12:06] VITALS: BP 100/79; PULSE 87; RESP 18; TEMP 36.7; O2SAT 100
[2024-10-26 12:36] LABS: EDSTREPNEGPOS1 Negative (Negative)
--- NOTE | 2024-10-26 12:51 | ED.GENADULT ---
HPI - General Adult General Chief complaint: Upper Respiratory Infection Stated complaint: Sore Throat/Cough/Chest Pain Source: patient Mode of arrival: ambulatory Limitations: no limitations History of Present Illness HPI narrative: Patient presents for evaluation of a sore throat for the last week. She also reports a productive cough of green sputum. She denies any fever, chills, nausea, vomiting, diarrhea. Her boyfriend in her child both had similar symptoms recently but they tested negative for strep. She has been taking cough drops for her symptoms. Related Data Allergies Allergy/AdvReac Type Severity Reaction Status Date / Time No Known Allergies Allergy Verified 07/31/24 17:03 Review of Systems Review of Systems: CONSTITUTIONAL: Denies fever, chills, or sweats. EYES: Denies visual changes, redness, or discharge. ENT: Reports sore throat. Denies rhinorrhea, congestion, or otalgia. CARDIOVASCULAR: Denies chest pain, palpitations, or edema. RESPIRATORY: Reports cough. Denies dyspnea. GASTROINTESTINAL: Denies abdominal pain, nausea, vomiting, or diarrhea. GENITOURINARY: Denies dysuria or hematuria. SKIN: Denies rash or itching. MUSCULOSKELETAL: Denies back pain, joint pain, or myalgia. NEUROLOGIC: Denies headache, numbness, dizziness, or weakness. PSYCHIATRIC: Denies anxiety or depression. [facility] Past Medical History Medical History Renal atrophy, right Vaginal delivery 2 males Hiatal hernia GERD (gastroesophageal reflux disease) Anxiety and depression Loss of teeth due to extraction Surgical History Surgical History History of pyeloplasty left H/O tubal ligation Family History Family History Father Acute myocardial infarction Mother Asthma Grandparent Acute myocardial infarction Social History Social History Smoking packs per day: 1.5 Smoking cigarettes per day: 30.0 Years smoked: 12 Smoking pack-years: 18.00 Smoking status: Current every day smoker Tobacco type: cigarettes and e-cigarettes/vaping Second hand tobacco smoke exposure: Yes Additional smoking assessment comments: Stop smoking cigarettes 2 years ago and now vaping Alcohol intake: former Substance use: current Substance use type: marijuana Living arrangements: with family Occupation/Education: occupation Gender identity (if verbalized by the patient): Female Sexual Orientation (if Verbalized by the Patient): Straight or Heterosexual Exam Narrative: GENERAL: Well-appearing, well-nourished, and in no acute distress. HEAD: Normocephalic, atraumatic. EYES: PERRLA and EOMI. ENT: Nares clear, no rhinorrhea or epistaxis. Mucous membranes moist. Oropharynx without tonsillar hypertrophy exudate or other lesions. Bilateral TMs pearly hamilton nonbulging NECK: Supple. No adenopathy or masses. No carotid bruits or JVD CHEST: Clear to auscultation. No respiratory distress. No wheezes rales or rhonchi HEART: Regular rate and rhythm. No murmur heard. Normal peripheral pulses. ABDOMEN: Soft, nontender, nondistended, normal active bowel sounds. EXTREMITIES: Normal range of motion. No edema. SKIN: Warm, dry, no rash. NEURO: No focal deficits. Alert and oriented x3. PSYCH: Normal mood and affect. Course Course Emergency Course: This is a 34-year-old female who presented for evaluation of sore throat. Rapid strep negative. Will send throat culture. Through shared decision making opted to proceed with abx in event that rapid was false negative. Increase fluids. OTC agents for symptom management. Follow up with primary provider. Go to the ER for worsening symptoms. Pt in agreement with plan of care. Level of Care: Express Care Visit Vital Signs Vital signs: Vital Signs Temperature 36.7 C 10/26/24 12:06 Pulse Rate 87 10/26/24 12:06 Respiratory Rate 18 10/26/24 12:06 Blood Pressure 100/79 10/26/24 12:06 Pulse Oximetry 100 10/26/24 12:06 Oxygen Delivery Room Air 10/26/24 12:06 Temperature 36.7 C 10/26/24 12:06 Pulse Rate 87 10/26/24 12:06 Respiratory Rate 18 10/26/24 12:06 Blood Pressure 100/79 10/26/24 12:06 Pulse Oximetry 100 10/26/24 12:06 Oxygen Delivery Room Air 10/26/24 12:06 Medical Decision Making Vital Signs Vital Signs: Vital Signs Temperature 36.7 C 10/26/24 12:06 Pulse Rate 87 10/26/24 12:06 Respiratory Rate 18 10/26/24 12:06 Blood Pressure 100/79 10/26/24 12:06 Pulse Oximetry 100 10/26/24 12:06 Oxygen Delivery Room Air 10/26/24 12:06 Temperature 36.7 C 10/26/24 12:06 Pulse Rate 87 10/26/24 12:06 Respiratory Rate 18 10/26/24 12:06 Blood Pressure 100/79 10/26/24 12:06 Pulse Oximetry 100 10/26/24 12:06 Oxygen Delivery Room Air 10/26/24 12:06 Lab Data Labs: Lab Results 10/26/24 Range/Units 12:35 POC Grp A Strep Screen Negative (Negative) Discharge Plan Discharge Clinical Impression: Pharyngitis Patient Disposition: Home Condition: Stable Instructions: Antibiotic Form, Pharyngitis (ED) Patient Language: Pashto Prescriptions: New amoxicillin 500 mg tablet 500 mg PO Q12H Qty: 20 0RF Follow-up/Referrals: Shaun Weiss MD [Physician] - Time of Disposition: 12:49
== END 2024-10-26 12:54 | disposition home or self-care (01) ==
PROVIDERS: Emergency Provider Nurse Practitioner
DX: J02.9 Acute pharyngitis, unspecified (principal); K21.9 Gastro-esophageal reflux disease without esophagitis; F17.290 Nicotine dependence, other tobacco product, uncomplicated; F12.90 Cannabis use, unspecified, uncomplicated
CPT/HCPCS: 87081; 87880; 99213; G0463

== ENCOUNTER 2024-10-28 08:29 | Emergency (ER) | payer OTHER, SELFPAY ==
[2024-10-28 08:32] VITALS: BP 106/66; PULSE 87; RESP 20; TEMP 37.1; O2SAT 100
--- OUTSIDE RECORDS SUMMARY | 2024-10-28 08:32 | XMS_ITS | Clinical Summary ---
Author Organization [facility] Address [address] [place] [address] Phone Care Team Providers Care Director Electronics Name Role Phone Sherwin Su APRN, OPHTHALMIC PHOTOGRAPHER Primary Care Pr ovider Jesse Barnard APRN, OPHTHALMIC PHOTOGRAPHER Unavailable [phone] Katy Esteban MD Unavailable [phone] Zaira Hanley APRN, [facility] Unavailable [phone] Yolanda Ashby APRN, OPHTHALMIC PHOTOGRAPHER Unavailable Eleazar Allred MD Unavailable Allergies Active [...] Department Care Team Description 10/11/2024 [facility] [address] [place] [phone] Sherwin Su, JOSEPHINE, OPHTHALMIC PHOTOGRAPHER Advice Only; Medication Problem 10/10/2024 Telephone [facility] [address] [place] [phone] Sherwin Su, DINING SERVICE INSPECTOR, OPHTHALMIC PHOTOGRAPHER Follow-up 10/09/2024 Patient Outreach [facility] Government Relations Manager Management [address] [place] [phone] Ruchi Galicia LSW Care Management ([facility]) 10/07/2024 11:00 AM CDT Office Visit [facility] - [facility] [address] [place] [phone] Felicitas Reddy APRN, OPHTHALMIC PHOTOGRAPHER Reactive depression (Primary Dx); ROGE (generalized anxiety disorder) Discharge Disposition: Discharged to home or Selfcare 10/07/2024 Travel 10/07/2024 Nurse Triage [facility] [address] [place] [phone] Sherwin Su, LAURA BURTON Depression; Diarrhea from [...] often do you attend chur ch or yarsani services? Never 05/14/2024 Do you belong to any clubs o r organizations such as taoist groups, unions, fraternal or athletic groups, or [...] place to sleep or slept in a alf (including now)? No 05/14/2023 Housing Stability Vital [...] any time in the past 12 m [facility], were you homeless or living in a alf (including now)? No 05/14/2024 Social Connection and Isolation Panel Answer Date Recorded In a typical week, how many times do you talk on the phone with family, friends, or neighbors? Once a week 10/10/2024 How often do you get together with friends or re latives? Twice a week 10/10/2024 How often do you attend taoist or yarsani serv ices? Never 10/10/2024 Do you belong to any clubs o r organizations such as taoist groups, unions, fraternal or athletic groups, or [...] medical care, and heating? Somewhat hard 10/10/2024 [facility] of Occupat ional Health - Occupational Stress [...] any time in the past 12 m [facility], were you homeless or living in a alf (including now)? No 10/10/2024 [facility] Utilities Answer Date Recorded In the past 12 months has th [employer] electric, gas, oil, or water company threatened [...] [facility] [place] [address] [place] [phone] Felicitas Reddy APRN, OPHTHALMIC PHOTOGRAPHER [address] [phone] Health Maintenance Due Date Last Done Comments [...] track(12/10/19 8:30 AM CDT) Yes Clotilde Fay, INSTRUCTOR PHYSICAL Procedures Procedure Name Priority Date/Time Associated Diagnosis Comments HUMAN PAPILLOMA VIRUS (HPV) Routine 01/24/2023 10:04 AM CDT Encounter for well woman exam with routine gynecological exam PATHOLOGY CYTOLOGY CURATOR HORTICULTURAL MUSEUM Routine 01/24/2023 10:04 AM CDT Encounter for well woman exam with routine gynecological exam from Last 3 Months or Most Recently Relevant to Health Maintenance Results * PATHOLOGY CYTOLOGY CURATOR HORTICULTURAL MUSEUM (01/24/2023 10:04 AM CDT) SPECIMEN ADEQUACY Satisfactory for evaluation. Endocervical/transf ormation zone component is present. 02/08/2023 3:14 PM ORDNANCE TRUCK INSTALLATION MECHANIC [facility] DESCRIPTIVE DIAGNOSIS NEGATIVE FOR INTRAEPITHELIAL LESIONS OR MALIGNANCY. 02/08/2023 3:14 PM ORDNANCE TRUCK INSTALLATION MECHANIC [facility] at 1514 ORDNANCE TRUCK INSTALLATION MECHANIC Automated Examination Analysis of this sample has been assisted by an automated imaging and review system ([employer] System, [employer], [place], [place]). This case is further evaluated and finalized by a high school chemistry teacher and/or pathologist. 02/08/2023 3:14 PM ORDNANCE TRUCK INSTALLATION MECHANIC [facility] Disclaimer The PAP smear is a screening [...] 67 unless clinically indicated. 02/08/2023 3:14 PM ORDNANCE TRUCK INSTALLATION MECHANIC [facility] Case Report Gynecologic Cytology Report Case: [id number] Authorizing Provider: Delaney Gardner APRN, CNP Collected: 01/24/2023 10:04 AM Ordering Location: [facility] Received: 01/24/2023 10:04 AM [facility] First Screen: Roma Aguirre Rescreen: Daisy Vargas Specimen: TP Screen, Cervix/Endocervix 02/08/2023 3:14 PM ORDNANCE TRUCK INSTALLATION MECHANIC [facility] Other CERVIX UTERI STRUCTURE / Unknown Non-Phlebotomy Collection / Unknown 01/24/2023 10:04 AM CDT 01/24/2023 10:04 AM CDT us Delaney Gardner APRN, CNP PATHOLOGY/CYTOLOGY ORDER ASHANTI Final Result [facility] [address] [place] [address], [place] * HUMAN PAPILLOMA VIRUS (HPV) (01/24/2023 10:04 AM CDT) HPV OTHER HIGH RISK TYPES, PCR NEGATIVE NEGATIVE 01/25/2023 1:48 PM CDT [facility] Comment: The following Other High Risk types [...] 16 NEGATIVE NEGATIVE 01/25/2023 1:48 PM CDT [facility] Comment: A negative high-risk HPV result does [...] 18 NEGATIVE NEGATIVE 01/25/2023 1:48 PM CDT [facility] Comment: A negative high-risk HPV result does [...] OR DIAGNOSTIC SCREENING 01/25/2023 1:48 PM CDT [facility] Other Non-Phlebotomy Collection / Unknown 01/24/2023 10:04 AM CDT 01/24/2023 10:04 AM CDT Narrative [facility] - 01/25/2023 1:48 PM CDT Performed by Real-Time Polymerase Chain Reaction (PCR) on the [employer] Xander 4800. This assay has been validated for use with post-aliquot samples from the [employer] processor. us Delaney Gardner DINING SERVICE INSPECTOR, OPHTHALMIC PHOTOGRAPHER LAB SEND OUTS Final Re sult [facility] [address] [place] [address], [place] [facility] [address] [place] [address] from Last 3 Months or Most Recently [...] measures to stabilize the patient. Care Teams Director Electronics Relationship Specialty Start Date End Date Sherwin Su APRN, OPHTHALMIC PHOTOGRAPHER [address] [facility] [address] [place] [address] PCP - General Advanced Practice Nurse 09/30/22 Jesse Barnard APRN, OPHTHALMIC PHOTOGRAPHER [address] [place] [address] Nurse Practitioner Advanced Practice Nurse 01/30/23 Katy Esteban MD [address] [address] Consulting Physician Urology 03/08/22 Zaira Hanley APRN, RX SPECIALIST [address] [place] [address] Nurse Practitioner Advanced Practice Nurse 10/28/22 Yolanda Ashby APRN, OPHTHALMIC PHOTOGRAPHER [address] [place] [address] Nurse Practitioner Advanced Practice Nurse 11/16/22 Eleazar Allred MD [address] [address] Consulting Physician Urology 01/24/24
--- NOTE | 2024-10-28 08:34 | ED_ITS ---
HPI - URI/Sore Throat General Chief Complaint: Upper Respiratory Infection Stated Complaint: Throat/headache Time Seen by Provider: 10/28/24 08:35 Source: patient and RN notes reviewed Mode of arrival: ambulatory Limitations: no limitations History of Present Illness HPI Narrative: [age] year old female presents concern for ongoing sore throat, runny nose, stuffy nose and cough. She reports symptoms for over week, she was seen here 2 days ago and had a negative strep culture but was prescribed amoxicillin due to the length of her illness. She has not started taking amoxicillin. She is using cough drops. She has not taken any other [id number] medications for her symptoms. She missed work today because of her sore throat and is requesting work note. MD elicited complaint: cough and sore throat Related Data Allergies Allergy/AdvReac Type Severity Reaction Status Date / Time No Known Allergies Allergy Verified 07/31/24 17:03 Review of Systems Review of Systems: CONSTITUTIONAL: Denies malaise, chills, sweats, or fever. EYES: Denies visual changes, redness, or discharge. ENT: Reports rhinorrhea, congestion, and sore throat. CARDIOVASCULAR: Denies chest pain, palpitations, or edema. RESPIRATORY: Reports cough. Denies dyspnea. GASTROINTESTINAL: Denies abdominal pain, nausea, vomiting, diarrhea SKIN: Denies rash or itching. MUSCULOSKELETAL: Denies myalgia. NEUROLOGIC: Denies headache. All systems reviewed & are unremarkable except as noted in HPI and below PMFSH Past Medical History Medical History Renal atrophy, right Vaginal delivery 2 males Hiatal hernia GERD (gastroesophageal reflux disease) Anxiety and depression Loss of teeth due to extraction Surgical History Surgical History History of pyeloplasty left H/O tubal ligation Family History Family History Father Acute myocardial infarction Mother Asthma Grandparent Acute myocardial infarction Social History Social History Smoking packs per day: 1.5 Smoking cigarettes per day: 30.0 Years smoked: 12 Smoking pack-years: 18.00 Smoking status: Current every day smoker Tobacco type: cigarettes and e-cigarettes/vaping Second hand tobacco smoke exposure: Yes Additional smoking assessment comments: Stop smoking cigarettes 2 years ago and now vaping Alcohol intake: former Substance use: current Substance use type: marijuana Living arrangements: with family Occupation/Education: occupation Gender identity (if verbalized by the patient): Female Sexual Orientation (if Verbalized by the Patient): Straight or Heterosexual Comments At time of signature, agree with nursing past medical, surgical, social and family history. There is no relevant family history pertinent to the presenting complaint Exam Narrative: GENERAL: Well-appearing, well-nourished, and in no acute distress. HEAD: Normocephalic EYES: PERRLA, conjunctivae clear ENT: Nares clear. Mucous membranes moist. TM pearly hamilton with sharp light reflex bilaterally; no tragal tenderness. Oropharynx erythematous without lesions. Tonsils not enlarged and without exudate, no drooling, no hoarseness, no trismus, uvula midline. NECK: Supple. No lymphadenopathy CHEST: Clear to auscultation, breath sounds equal. No wheezing, rhonchi, rales, or stridor. No respiratory distress, speaks in full sentences. HEART: Regular rate and rhythm. No murmur heard. SKIN: Warm, dry, no rash. NEURO: Alert and oriented x3. PSYCH: Normal mood and affect Course Course Emergency Course: Patient is aware of diagnosis, understands and agrees to treatment plan. Anticipatory guidance given. Patient agrees to follow-up as directed and is aware of reasons to seek care at the emergency department. Portions of this record may have been created with voice recognition software Level of Care: Express Care Visit Vital Signs Vital signs: Reviewed. MDM - URI/Sore Throat MDM Narrative Medical decision making narrative: Differential diagnosis considered: Gonzalez virus, strep pharyngitis, allergic rhinitis, upper respiratory tract infection, sinusitis, rhinosinusitis, nasopharyngitis. viral pharyngitis, otitis media, otitis externa, pneumonia, bronchitis, viral cough syndrome, viral syndrome, and influenza. Exam findings show no acute concerns or changes; patient is non-toxic appearing and is in no distress. Patient is appropriate for outpatient treatment and follow-up. Lab Data Attestation: I reviewed the patient's lab results. Critical Care Time Critical Care Time Critical Care Time: No Discharge Plan Discharge Clinical Impression: Upper respiratory infection Patient Disposition: Home Condition: Stable Instructions: Upper Respiratory Infection (ED) Additional Instructions: Take medications as prescribed Your throat culture is still pending Recommend antihistamine such as Benadryl at night time and Zyrtec or Shalonda during the day Also, recommend symptomatic treatment includes: rest, fluids, and increase humidity of the air at home. Recommend Acetaminophen as directed on the bottle to reduce fever, pain, headache. Avoid smoking/second-hand smoke. Please schedule a follow-up visit with your personal physician for further evaluation and treatment within 3-5days. If your symptoms persist, change or worsen significantly before you can contact your personal physician then please, without delay, go to the emergency department for further evaluation. Patient Language: Botswanan Prescriptions: New methylprednisolone [Medrol (Todd)] 4 mg tablets,dose pack See Rx Instructions .ROUTE .COMPLEX Qty: 21 0RF Rx Instructions: orally per package directions No Action amoxicillin 500 mg tablet 500 mg PO Q12H Qty: 20 0RF Follow-up/Referrals: PHYSICIAN NOT ON STAFF,NONSTAFF [Primary Care Provider] - Stand Alone Forms: Work/School Release IP Time of Disposition: 08:44
== END 2024-10-28 08:48 | disposition home or self-care (01) ==
PROVIDERS: Emergency Provider Nurse Practitioner
DX: J06.9 Acute upper respiratory infection, unspecified (principal); F17.290 Nicotine dependence, other tobacco product, uncomplicated; K21.9 Gastro-esophageal reflux disease without esophagitis
CPT/HCPCS: 99213; G0463

== ENCOUNTER 2024-11-12 08:32 | Emergency (ER) | payer OTHER, SELFPAY ==
[2024-11-12 08:42] VITALS: BP 114/67; PULSE 84; RESP 20; TEMP 36.6; O2SAT 100
--- OUTSIDE RECORDS SUMMARY | 2024-11-12 08:54 | XMS_ITS | Clinical Summary ---
Author Organization [facility] Address [address] [place] [address] Phone Care Team Providers Care Secondary Education Professor Name Role Phone Sherwin Su APRN, CURED MEAT PACKING SUPERVISOR Primary Care Pr ovider Jesse Barnard APRN, CURED MEAT PACKING SUPERVISOR Unavailable [phone] Katy Esteban MD Unavailable [phone] Zaira Hanley APRN, [facility] Unavailable + [phone] Yolanda Ashby APRN, CURED MEAT PACKING SUPERVISOR Unavailable Eleazar Allred MD Unavailable Allergies Active Allergy Reactions Criticality Noted Date Comments Codeine Nausea,Vomiting Low 07/19/2015 Patient states reaction was when she was younger. States she has taken it as an adult without any adverse effects. Mirtazapine Itching 11/08/2024 Medications famotidine (PEPCID) 20 MG TabletIndicati ons:Bulimia nervosa Take 1 Tablet by mouth 2 times daily. 60 Tablet 3 4 Active Additional Information Patient not taking.Reported on 11/08/2024 acetaminophen (Midol) 650 MG Tablet Controlled Release Take 650 mg by mouth every 6 hours as needed. Active omeprazole (PriLOSEC) 20 MG CAPSULE DELAYED RELEASE Take 1 Capsule by mouth daily. 90 Capsule Active Additional Information Patient not taking.Reported on 11/08/2024 OLANZapine (ZyPREXA) 2.5 MG Tablet Take 1 Tablet by mouth nightly. 30 Tablet 5 Active Additional Information Patient not taking.Reported on 11/08/2024 mirtazapine (REMERON) 15 MG TabletIndicati ons:ROGE (generalized anxiety disorder) Take 1 Tablet by mouth nightly. 30 Tablet 3 5 11/09/19 25 Discontin ued(Aller gic response) Active Problems Problem Noted Date Diagnosed Date Yeast infection 05/15/2024 Bladder infection 05/15/2024 History of pyeloplasty 05/15/2024 Left flank pain 05/15/2024 Anxiety 11/21/2022 Seizure-like activity 10/28/2022 Chronic sore throat 02/28/2022 Dysthymia 08/22/2019 08/01/2016 Overview (08/01/2016): 37&6/7 weeks Small for gestational age (SGA) 08/01/2016 Overview (08/01/2016): Mother 1ppd smoker Estimated wgt without smoking 2600grams and NOT Sga Encounters Date Type Department Care Team Description 11/12/2024 Telephone [facility] [address] [place] [phone] Sherwin Su APRN, LAURA Erroneous Encounter - Disregard 11/08/2024 11:00 AM CDT [facility]icine [facility] [address] [place] [address] Felicitas Reddy APRN, LAURA ROGE (generalized anxiety disorder) (Primary Dx); Reactive depression; Bulimia nervosa, unspecified severity 11/07/2024 Travel 10/11/2024 [facility] [address] [place] [phone] Sherwin Su APRN, LAURA Advice Only; Medication Problem 10/10/2024 Telephone [facility] [address] [place] [phone] Sherwin Su APRN, CNP Follow-up 10/09/2024 Patient Outreach [facility] [address] [place] [address] Ruchi Galicia LSW Care Management ( referral) 10/07/2024 11:00 AM CDT Office Visit [facility] [address] [place] [address] Felicitas Reddy APRN, CNP Reactive depression (Primary Dx); ROGE (generalized anxiety disorder) Discharge Disposition: Discharged to home or Selfcare 10/07/2024 Travel 10/07/2024 Nurse Triage [facility] [address] [place] [address] Sherwin Su APRN, CNP Depression; Diarrhea from Last 3 Months Immunizations [...] Alive Brother 2 Dada Buckley Alive Father Ning Alive Maternal Grandfather Maternal Grandmother Annel Gamez Alive Maternal Uncle Asher Alive Mother Antonina White Nephew Alive Other Paternal Grandfather Jose White Sr Paternal Grandmother Sonia Vasques Alive Sister Alive Social History Tobacco Use Types Packs/Day Years Used Date Smoking Tobacco: Former Cigarettes 2017 Smokeless Tobacco: Never Tobacco Cessation:Counseling Given: Yes Alcohol Use Standard Drinks/Week Comments Never 0 (1 standard drink = 0.6 oz pur e alcohol) Social Connection and Isolation Panel Answer Date Recorded In a typical week, how many times do you talk on the phone with family, friends, or neighbors? Once a week 05/14/19 How often do you get togethe r with friends or relatives? Twice a week 05/14/2024 How often do you attend chur ch or yazdanism services? Never 05/14/2024 Do you belong to any clubs o r organizations such as advent groups, unions, fraternal or athletic groups, or school groups? No 05/14/2024 How often do you attend meet ings of the clubs or organizations you belong to? Never 05/14/2024 Are you , , di vorced, , never , or living with a partner? Living with partner 05/14/2024 PHQ-2 Answer Date Recorded Total Score - Questions 1-9 12 10/25 Housing Stability Vital Sign Answer Tien e [...] place to sleep or slept in a correction (including now)? No 05/14/2023 Housing Stability Vital [...] any time in the past 12 m [facility], were you homeless or living in a correction (including now)? No 05/14/2024 Social Connection and Isolation Panel Answer Date Recorded In a typical week, how many times do you talk on the phone with family, friends, or neighbors? Once a week 10/10/2024 How often do you get together with friends or re latives? Twice a week 10/10/2024 How often do you attend advent or yazdanism serv ices? Never 10/10/2024 Do you belong to any clubs o r organizations such as advent groups, unions, fraternal or athletic groups, or [...] medical care, and heating? Somewhat hard 10/10/2024 [facility] [place] of Occupat ional Health - Occupational Stress [...] any time in the past 12 m [facility], were you homeless or living in a correction (including now)? No 10/10/2024 [facility] Utilities Answer Date Recorded In the [...] 10/07/2024 10:48 AM CDT Plan of Treatment Health Maintenance [...] track(12/10/19 8:30 AM CDT) Yes Clotilde Fay, ASSEMBLY STOCK SUPERVISOR Procedures Procedure Name Priority Date/Time Associated Diagnosis Comments HUMAN PAPILLOMA VIRUS (HPV) Routine 01/24/2023 10:04 AM CDT Encounter for well woman exam with routine gynecological exam PATHOLOGY CYTOLOGY SCHOOL BUS ATTENDANT Routine 01/24/2023 10:04 AM CDT Encounter for well woman exam with routine gynecological exam from Last 3 Months or Most Recently Relevant to Health Maintenance Results * PATHOLOGY CYTOLOGY SCHOOL BUS ATTENDANT (01/24/2023 10:04 AM CDT) SPECIMEN ADEQUACY Satisfactory for evaluation. Endocervical/transf ormation zone component is present. 02/08/2023 3:14 PM HEALTH PHYSICS TECHNICIAN [facility] DESCRIPTIVE DIAGNOSIS NEGATIVE FOR INTRAEPITHELIAL LESIONS OR MALIGNANCY. 02/08/2023 3:14 PM HEALTH PHYSICS TECHNICIAN [facility] at 1514 HEALTH PHYSICS TECHNICIAN Automated Examination Analysis of this sample has been assisted by an automated imaging and review system ([employer] Imaging System, [employer], [place], [place]). This case is further evaluated and finalized by a grader green meat and/or pathologist. 02/08/2023 3:14 PM HEALTH PHYSICS TECHNICIAN [facility] Disclaimer The PAP smear is a [...] 65 unless clinically indicated. 02/08/2023 3:14 PM HEALTH PHYSICS TECHNICIAN [facility] Case Report Gynecologic Cytology Report Case: [id number] Authorizing Provider: Delaney Gardner APRN, CNP Collected: 01/24/2023 10:04 AM Ordering Location: [facility] Received: 01/24/2023 10:04 AM [facility] First Screen: Roma Aguirre Rescreen: Daisy Vargas Specimen: TP Screen, Cervix/Endocervix 02/08/2023 3:14 PM HEALTH PHYSICS TECHNICIAN [facility] Other CERVIX UTERI STRUCTURE / Unknown Non-Phlebotomy Collection / Unknown 01/24/2023 10:04 AM CDT 01/24/2023 10:04 AM CDT us Delaney Gardner APRN, CNP PATHOLOGY/CYTOLOGY ORDER ASHANTI Final Result [facility] [address] [place] [address], [place] * HUMAN PAPILLOMA VIRUS (HPV) (01/24/2023 10:04 AM CDT) HPV OTHER HIGH RISK TYPES, PCR NEGATIVE NEGATIVE 01/25/2023 1:48 PM CDT [facility] Comment: The following Other High Risk [...] 16 NEGATIVE NEGATIVE 01/25/2023 1:48 PM CDT [facility] Comment: A negative high-risk HPV result [...] 18 NEGATIVE NEGATIVE 01/25/2023 1:48 PM CDT [facility] Comment: A negative high-risk HPV result [...] OR DIAGNOSTIC SCREENING 01/25/2023 1:[address] [facility] Other Non-Phlebotomy Collection / Unknown 01/24/2023 10:04 AM CDT 01/24/2023 10:04 AM CDT Narrative [facility] - 01/25/2023 1:48 PM CDT Performed by Real-Time Polymerase Chain Reaction (PCR) on the [employer] Xander 4800. This assay has been validated for use with post-aliquot samples from the [employer] T5000 processor. us Delaney Gardner STORE SPECIALIST, CURED MEAT PACKING SUPERVISOR LAB SEND OUTS Final Re sult [facility] [address] [place] [address], [place] [facility] [address] [place] [address] from Last 3 Months or Most Recently [...] measures to stabilize the patient. Care Teams Secondary Education Professor Relationship Specialty Start Date End Date Sherwin Su APRN, CURED MEAT PACKING SUPERVISOR [address] [facility] [address] [place] [address] PCP - General Advanced Practice Nurse 09/30/22 Jesse Barnard APRN, CURED MEAT PACKING SUPERVISOR [address] [place] [address] Nurse Practitioner Advanced Practice Nurse 01/30/23 Katy Esteban MD [address] [address] Consulting Physician Urology 03/08/22 Zaira Hanley APRN, [facility] [address] [place] [address] Nurse Practitioner Advanced Practice Nurse 10/28/22 Yolanda Ashby APRN, CURED MEAT PACKING SUPERVISOR [address] [place] [address] Nurse Practitioner Advanced Practice Nurse 11/16/22 Eleazar Allred MD [address] [address] Consulting Physician Urology 01/24/24
--- OUTSIDE RECORDS SUMMARY | 2024-11-12 08:54 | XMS_ITS | Encounter Summary ---
Author Organization [facility] Address [address] [place] [address] Phone Care Team Providers Care Emergency Veterinary Assistant Name Role Phone Sherwin Su APRN, ROD FILLER Primary Care Pr ovider Jesse Barnard APRN, ROD FILLER Unavailable [phone] Katy Esteban MD Unavailable [phone] Zaira Hanley APRN, SUPERVISOR ACCOUNTS RECEIVABLE Unavailable [phone] Yolanda Ashby APRN, ROD FILLER Unavailable Eleazar Allred MD Unavailable Reason for Visit * Reason Onset Date Comments Erroneous Encounter - Disregard 11/12/2024 Encounter Details Date Type Department Care Team (Late st Contact Info) Description 11/12/2024 Telephone [facility] [address] [place] [address] Sherwin Su APRN, ROD FILLER [address] [address] Erroneous Encounter - Disregard Social History Tobacco Use Types Packs/Day Years Used Date Smoking Tobacco: Former Cigarettes 1 2017 Smokeless Tobacco: Never Alcohol Use Standard Drinks/Week Comments Never 0 [...] often do you attend chur ch or baptist services? Never 05/14/2024 Do you belong to any clubs o r organizations such as islam groups, unions, fraternal or athletic groups, or [...] any time in the past 12 m [facility], were you homeless or living in a alf (including now)? No 05/14/2024 Social Connection and Isolation Panel Answer Date Recorded In a typical week, how many times do you talk on the phone with family, friends, or neighbors? Once a week 10/10/2024 How often do you get together with friends or re latives? Twice a week 10/10/2024 How often do you attend islam or baptist serv ices? Never 10/10/2024 Do you belong to any clubs o r organizations such as islam groups, unions, fraternal or athletic groups, or [...] medical care, and heating? Somewhat hard 10/10/2024 [facility] of Occupat ional Health - [...] any time in the past 12 m [facility], were you homeless or living in a alf (including now)? No 10/10/2024 [facility] Utilities Answer Date Recorded In the past 12 months has e electric, gas, oil, or water company [...] on file Sexual Orientation Not on file documented as of this encounter Miscellaneous Notes * Telephone Encounter - Patricia Christianson RN - 11/12/2024 3:13 AM CDT Opened in error. documented in this encounter Plan of Treatment Not on file documented as of this encounter Goals Goal Patient Goal Type Associated Problems Recent Progress Patient-Stated? Author I want to wake up and want to be alive/feel annalise in life Behavioral Health On track(12/10/19 8:30 AM CDT) Yes Clotilde Fay LCSW documented as of this encounter Visit Diagnoses Not on filedocumented in this encounter Additional Health Concerns Assessment Noted Time PHQ-9 Depression Total Score: 12 025 11:00 AM CDT documented as of this encounter Care Teams Emergency Veterinary Assistant Relationship Specialty Start Date End Date Sherwin Su APRN, ROD FILLER [address] [address] PCP - General Advanced Practice Nurse 09/30/22 Jesse Barnard APRN, ROD FILLER [address] [place] [address] Nurse Practitioner Advanced Practice Nurse 01/30/23 Katy Esteban MD [address] [facility] [address] [place] [address] Consulting Physician Urology 03/08/22 Zaira Hanley APRN, SUPERVISOR ACCOUNTS RECEIVABLE [address] [place] [address] Nurse Practitioner Advanced Practice Nurse 10/28/22 Yolanda Ashby APRN, ROD FILLER [address] [place] [address] Nurse Practitioner Advanced Practice Nurse 11/16/22 Eleazar Allred MD [address] [facility] [address] [place] [address] Consulting Physician Urology 01/24/24 documented as of this encounter
--- OUTSIDE RECORDS SUMMARY | 2024-11-12 08:56 | XMS_ITS | Clinical Summary ---
Author Organization [address] Address [address] [place] [address] Care Team Providers Care Outreach Educator Name Role Phone Sherwin Su AUTOMOTIVE TIRE WORKER Primary Care Provider Allergies Active Allergy Reactions [...] 6 08/22/2019 Personal Safety Answer Date Recorded Have you ever been in or are you currently in a harmful physical or emotional relationship or is someone making you feel afraid or unsafe? 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 Gender Identity Not on file Sexual Orientation Not on file Obstetrics History Last Filed Vital Signs Vital Sign Reading Time Taken Comments Blood Pressure 107/66 07/31/2024 11:20 PM CDT Pulse 77 07/31/2024 11:20 PM CDT Temperature 36.9 C (98.4 F) 07/31/2024 9:15 PM CDT Respiratory Rate 16 07/31/2024 9:15 PM CDT Oxygen Saturation 100% 07/31/2024 11:20 PM CDT Inhaled Oxygen Concentration - - Weight 43.1 kg (95 lb) 07/31/2024 9:15 PM CDT Height 147.3 cm (4' 10) 07/31/2024 9:15 PM CDT Body Mass Index 19.86 07/31/2024 9:15 PM CDT Plan of Treatment Health Maintenance Due Date Last Done Comments Cervical Cancer Screening 1992 Hepatitis C Screening 1992 Regular Well Visit/Exam 18-64 2010 Pneumococcal vaccine <65 (1 of 2 - PCV) 08/28/2011 HPV Vaccines (1 - 3-dose SCD M series) 08/28/2019 Depression Screening 08/21/2020 08/22/2019, 08/22/19 20 Influenza Vaccine (#1) 2024 4, 08/11/1993, 02/09/1993, Additional history exists DTaP/Tdap/Td Vaccine (8 - Td or Tdap) 07/07/2026 07/07/2016, 11/28/2014, 10/24/1997, Additional history exists Hepatitis B Screening Completed 01/24/1995 , 12/28/1994, 07/19/1994 Varicella Vaccines Discontinued Medical Devices Explanted Type Area Elevator Technician Device Identifier Shelf Expiration Date Model / Serial / Lot [employer] 5fr 22cm Radiopaque Positioner Monofilament Tether [id number] - [id number] Implanted:Qty: 1 on 05/27/2022 by Cuba Perez DO at [facility] Explanted:Qty: 1 on 06/29/2022 by Cuba Perez DO [employer] 10/07/2023 [id number] / / [id number] Insurance [facility] [place] [address] [facility] Advance Directives For more information, please contact: [phone] * Full Code (Latest Code Status on File) Date Activated Date Inactivated Comments 05/27/2022 6:34 PM 05/29/2022 7:47 PM Care Teams Outreach Educator Relationship Specialty Start Date End Date Sherwin Su NP [address] [address] PCP - General Nurse Practitioner 04/03/23
--- NOTE | 2024-11-12 09:01 | ED_ITS ---
HPI - Nausea/Vomiting/Diarrhea General Chief complaint: Nausea/Vomiting/Diarrhea Stated complaint: Weakness/Diarrhea Time Seen by Provider: 11/12/24 08:35 Source: patient Mode of arrival: ambulatory Limitations: no limitations History of Present Illness HPI Narrative: Florentin is a 34-year-old female patient presenting to the clinic today with complaints of diarrhea, headache, weakness, fatigue, nausea without vomiting, and possible heat exhaustion. She reports symptoms started yesterday with diarrhea it is having abdominal cramping prior to having diarrhea episodes. Denies any blood in her stool. Denies any fevers, chills, body aches. Denies any URI symptoms. Has taken Tylenol for her headache. Rates pain 09/03. Went to work today and had multiple diarrhea stools, was sent here for evaluation. Last bowel movement was at 6:00 a.m.. Denies any chest pain or shortness of breath. No no one else at home has similar symptoms. Related Data Allergies Allergy/AdvReac Type Severity Reaction Status Date / Time No Known Allergies Allergy Verified 11/12/24 08:50 Review of Systems Review of Systems: Pertinent positives per HPI. Patient denies any fever, chills, rash, headache, visual changes, dizziness, cough, runny nose, sore throat, shortness of breath, chest pain, palpitations, vomiting,constipation, or any urinary issues. [facility]LY [facility], [facility] Past Medical History Medical History Renal atrophy, right Vaginal delivery 2 males Hiatal hernia GERD (gastroesophageal reflux disease) Anxiety and depression Loss of teeth due to extraction Surgical History Surgical History History of pyeloplasty left H/O tubal ligation Family History Family History Father Acute myocardial infarction Mother Asthma Grandparent Acute myocardial infarction Social History Social History Smoking packs per day: 1.5 Smoking cigarettes per day: 30.0 Years smoked: 12 Smoking pack-years: 18.00 Smoking status: Current every day smoker Tobacco type: cigarettes and e-cigarettes/vaping Second hand tobacco smoke exposure: Yes Additional smoking assessment comments: Stop smoking cigarettes 2 years ago and now vaping Alcohol intake: former Substance use: current Substance use type: marijuana Living arrangements: with family Occupation/Education: occupation Gender identity (if verbalized by the patient): Female Sexual Orientation (if Verbalized by the Patient): Straight or Heterosexual Comments At the time of my signature, I reviewed and agree with the nursing past medical, surgical, social, and family history. There is no relevant family history pertinent to the patient complaint. Exam Narrative: General: Well-developed, thin, in no apparent distress Head: Normocephalic, atraumatic Eyes: Pupils equally round and reactive to light bilaterally, EOM intact, sclera and conjunctive clear, no discharge, lids normal Ears: TMs intact and clear, ear canals clear, no drainage, grossly hearing normal. Nose: Nares patent, no discharge, no inflammation, no sinus tenderness. Mouth: Oropharynx without lesions or masses, good dentition, MM dry. Neck: Supple, trachea midline, no enlargement of anterior or posterior cervical nodes, no thyroid masses or goiter palpable. Cardio: Regular rate and rhythm, s1 and s2 normal, no murmur appreciated. Resp: Clear to auscultation bilaterally anteriorly and posteriorly, no rhonchi, rales, wheezing or rubs Abdomen: Soft, pliable, bowel sounds present in all quadrants, very mild generalized abdomen tender to palpation, no organomegly, no CVAT tenderness. Course Course Emergency Course: Portions of this record may have been created with voice recognition software. Level of Care: Express Care Visit Vital Signs Vital signs: Vital Signs Temperature 36.6 C 11/12/24 08:42 Pulse Rate 84 11/12/24 08:42 Respiratory Rate 20 11/12/24 08:42 Blood Pressure 114/67 11/12/24 08:42 Pulse Oximetry 100 11/12/24 08:42 Oxygen Delivery Room Air 11/12/24 08:42 Temperature 36.6 C 11/12/24 08:42 Pulse Rate 84 11/12/24 08:42 Respiratory Rate 20 11/12/24 08:42 Blood Pressure 114/67 11/12/24 08:42 Pulse Oximetry 100 11/12/24 08:42 Oxygen Delivery Room Air 11/12/24 08:42 Vital signs reviewed MDM - Nausea/Vomiting/Diarrhea MDM Narrative Medical decision making narrative: At the time of visit patient is resting comfortably on the exam table. Patient appears to be nontoxic. Complaints of diarrhea, headache, weakness, fatigue, nausea without vomiting, possible heat exhaustion. She reports symptoms started yesterday with diarrhea it is having abdominal cramping prior to having diarrhea episodes. Denies any blood in her stool. Denies any fevers, chills, body aches. Denies any URI symptoms. Has taken Tylenol for her headache. Rates pain 09/03. Went to work today and had multiple diarrhea stools, was sent here for evaluation. Last bowel movement was at 6:00 a.m.. Denies any chest pain or shortness of breath. No one else has similar symptoms. Vital signs stable. On exam Mucous membranes dry. Mild generalized abdomen tenderness to palpation. Will order urine to check for hydration status and UTI. Labs: Urine dip negative for any sign of infection but does show 2+ ketones and 1+ protein. Plan: I suspect patient has gastroenteritis with acute dehydration. Shared decision making was performed with the patient. Offer to send patient to the ER for IV fluids and labs verses sending in prescription for Zofran for nausea and have patient try to push fluids at home. Patient would like to go home with medication. Ondansetron was sent to the pharmacy. Recommend taking Imodium as needed for diarrhea as long as there is no blood in your stool. Increase fluids and stay well hydrated. Work Note was given for 2 days. Supportive measures were discussed with the patient and they voiced understanding discharge instructions and agrees to treatment plan. Return precautions reviewed Differential Diagnosis Differential diagnosis: Likely food poisoning, gastroenteritis, clostridium difficile infection, dehydration and other (Viral syndrome, heat exhaustion, electrolyte imbalance, UTI) Lab Data Labs: Lab Results 11/12/24 Range/Units 09:08 POC Urine Color Yellow POC Urine Clarity Clear POC Urine pH 5.5 POC Ur Specif [place] 1.030 POC Urine Protein 1+ (Negative) POC Ur Glucose (UA) Negative (Negative) POC Urine Ketones 2+ (Negative) POC Urine Blood Negative (Negative) POC Urine Nitrite Negative (Negative) POC Urine Bilirubin Negative (Negative) POC Urine Urobilinogen 0.2 POC U Leukocyte Esteras Negative (Negative) Discharge Plan Discharge Clinical Impression: Gastroenteritis, Acute dehydration Patient Disposition: Home Condition: Stable Instructions: Antibiotic Form, Dehydration (ED), Gastroenteritis (ED) Additional Instructions: Urinalysis shows 2+ ketones and 1+ protein. No sign of infection. Take prescription medications only as prescribed-ondansetron for nausea Increase fluids and stay well hydrated May take Tylenol or motrin as directed on bottle for pain/fever BRAT diet for diarrhea Clear liquids x 24 hours then advance as tolerated for nausea/vomiting May take Imodium as needed for diarrhea as long as there is no blood in your stool. Go to the ED if you develop a worsening in your condition- high fever not controlled by Tylenol or Motrin, dehydration, weakness, lethargy, shortness of breath, or chest pain. Follow up with your PCP in 3-5 days if symptoms persist. Patient Language: [place] Prescriptions: New ondansetron 8 mg tablet,disintegrating 8 mg PO Q8H PRN (Reason: nausea and vomiting) 3 Days Qty: 10 0RF Follow-up/Referrals: Barry,Felicitas Villalobos APRN [Primary Care Provider, Unknown] Stand Alone Forms: Work/School Release IP Time of Disposition: 09:15 Quality NIHSS Nursing Documentation ED NIHSS nursing documentation: reviewed/agree
[2024-11-12 09:16] LABS: EDUAAPPEAR Clear; EDUABILI Negative (Negative); EDUABLOOD Negative (Negative); EDUACOLOR1 Yellow; EDUAGLUCOSE Negative (Negative); EDUAKETONE 2+ (Negative); EDUALEUKO Negative (Negative); EDUANITRATE Negative (Negative); EDUAPH 5.5; EDUAPROTEIN 1+ (Negative); EDUASPGRAVITY 1.030; EDUAUROBILI 0.2
== END 2024-11-12 09:20 | disposition home or self-care (01) ==
PROVIDERS: Emergency Provider Nurse Practitioner Family; PCP Nurse Practitioner
DX: K21.9 Gastro-esophageal reflux disease without esophagitis (principal); E86.0 Dehydration; F17.290 Nicotine dependence, other tobacco product, uncomplicated; F12.90 Cannabis use, unspecified, uncomplicated; N26.1 Atrophy of kidney (terminal)
CPT/HCPCS: 81003; 99213; G0463

== ENCOUNTER 2025-01-07 11:23 | Emergency (ER) | payer OTHER, SELFPAY ==
[2025-01-07 11:32] VITALS: BP 110/64; PULSE 86; RESP 16; TEMP 36.6; O2SAT 99
[2025-01-07 12:10] LABS: EDUAAPPEAR Cloudy; EDUABILI Negative (Negative); EDUABLOOD Negative (Negative); EDUACOLOR1 Yellow; EDUAGLUCOSE Negative (Negative); EDUAKETONE Negative (Negative); EDUALEUKO Negative (Negative); EDUANITRATE Negative (Negative); EDUAPH 7.0; EDUAPROTEIN Trace (Negative); EDUASPGRAVITY 1.025; EDUAUROBILI 0.2
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
--- OUTSIDE RECORDS SUMMARY | 2025-01-07 13:28 | XMS_ITS | Clinical Summary ---
Author Organization [facility] Address [address] [place] [address] Care Team Providers Care Electrical Subcontractor Name Role Phone Patricia Craig APRN-[facility] Primary Care Provider + Source Comments [facility],non-owned Affiliates and Associated Physician Practices is amultiple site organization consisting of ambulatory clinics and hospital sitesin [place], [place], [place] and [place]. This disclosure is being madepursuant to the Care Everywhere program and may not contain all information available regarding this patient. Last updated 17.[facility] Allergies No known active allergies Medications * [...] Comments Blood Pressure 110/70 04/04/2022 2:05 PM INSURANCE AGENCY MANAGER Pulse 58 04/04/2022 2:05 PM INSURANCE AGENCY MANAGER Temperature - - Respiratory Rate - - Oxygen Saturation - - Inhaled Oxygen Concentration - - Weight 46.3 kg (102 lb) 04/04/2022 2:05 PM INSURANCE AGENCY MANAGER Height 147.3 cm (4' 10) 04/04/2022 2:05 PM INSURANCE AGENCY MANAGER Body Mass Index 21.32 04/04/2022 2:05 PM INSURANCE AGENCY MANAGER Plan of Treatment Health Maintenance Due Date Last Done Comments HEPATITIS B VACCINE (4 of 4 - 4-dose series) 02/22/1995 01/24/1995, 12/28/1994, 07/19/1994 HIV SCREENING 08/28/2007 HEPATITIS C SCREENING 08/23/2010 PAP SMEAR 2013 HPV VACCINE (1 - 3-dose SCDM series) 08/28/2019 DEPRESSION SCREENING 03/27/2024 COVID-19 VACCINE ( season) 2024 INFLUENZA VACCINE (#1) 2024 4, 08/11/1993, 02/09/1993, Additional history exists DTAP/TDAP/TD VACCINES [...] patient's age to complete this topic Insurance [facility] Care Teams Electrical Subcontractor Relationship Specialty Start Date End Date Patricia Craig, SHELL SIEVE OPERATOR-[employer] [id number] [place] [id number] PCP - General 03/15/22
[2025-01-07 20:07] LABS: Trichomonas Vag PCR NOT DETECTED (NOT DETECTE)
== END 2025-01-07 12:21 | disposition home or self-care (01) ==
PROVIDERS: PCP Nurse Practitioner
DX: Z20.2 Contact with and (suspected) exposure to infections with a predominantly sexual mode of transmission (principal); F17.210 Nicotine dependence, cigarettes, uncomplicated
CPT/HCPCS: 81003; 87086; 87491; 87591; 87661; 99213; G0463